=== PATIENT | male | born 1950 | race Caucasian/White ===

== ENCOUNTER 2017-02-13 15:34 | Inpatient (IN) | payer OTHER, MEDICARE ==
[~2017-02-13] VITALS: Ht 175.3 cm; Wt 99.9 kg
[~2017-02-13 15:34] MED LIST: ALBUAER2 INH; ASCA500 PO; ASPI-435; BRVIN; CHOL400C; CYAN50TA2; FERR28TA2; FLUT220A INH; HYDR5SYP11 PO; LISI40TA PO; MONT1TAB3 PO; MULTTAB5 PO; SIMV-151 PO
[2017-02-13] MEDS ORDERED: OPTIRAY 320 IV PRN (17:30)
--- NOTE | 2017-02-13 17:46 | DIAGNOSTIC IMAGING REPORT ---
CT ANGIOGRAPHY OF THE CHEST, PULMONARY EMBOLUS PROTOCOL CLINICAL HISTORY: Shortness of breath. Pleuritic chest pain. Liver lesions. COMPARISON STUDY: No previous studies for comparison. TECHNIQUE: Following IV administration of 119 mL of Optiray-320, helical axial images of the chest were obtained utilizing the pulmonary embolus protocol. Maximal intensity projections and sagittal and coronal reformats were viewed on an independent 3D workstation. IV contrast was administered without complication. A dose lowering technique was utilized adhering to the principles of ALARA. FINDINGS: There are multiple bilateral pulmonary emboli, including a small embolus within the distal left pulmonary artery. Numerous small bilateral segmental pulmonary emboli are noted. There is no saddle embolus. There is no CT evidence of right heart strain. There is no thoracic aortic dissection. A 6.1 cm subpleural left lower lobe opacity suggests an infarct. There is no pneumothorax or pleural effusion. Minimal right chest wall gas is likely related to recent chest tube which has been removed. There is trace gas within the upper mediastinum. There is gas within the right lower chest wall and upper abdominal wall which is likely postprocedural. Innumerable liver lesions are better depicted on the abdominal CT. A conglomerate right hepatic lobe lesion measures 5.6 x 3.5 cm. There is an indeterminate 1.7 cm lucent left sixth rib lesion. IMPRESSION: 1. Numerous small bilateral pulmonary emboli, including a small embolus within the distal left pulmonary artery. 6.1 cm subpleural left lower lobe opacity suggestive of a pulmonary infarct. Findings discussed with Dr. Foley at time of dictation. 2. Innumerable hepatic lesions which are better depicted on the abdominal CT. The findings suggest extensive hepatic metastases. 3. Right chest wall and upper abdominal gas which is likely postprocedural. Trace upper mediastinal gas which may be related to recent chest tube. No pneumothorax. 4. Indeterminate 1.7 cm lucent left sixth rib lesion. Electronically signed by: Geovanny Miranda M.D. 02/13/2017 5:45 PM Dictated Date/Time: 02/13/2017 5:21 PM
--- NOTE | 2017-02-13 17:48 | DIAGNOSTIC IMAGING REPORT ---
CT SCAN OF THE ABDOMEN COMBO LIVER PROTOCOL CLINICAL HISTORY: Upper abdominal pain. Unspecified liver lesion. COMPARISON STUDY: Ultrasound of the abdominal aorta dated 08/18/2014. TECHNIQUE: Before and following the IV administration of 119 cc of Optiray 320, CT scan of the abdomen is performed from the lung bases to the pelvic inlet using the liver protocol. Images are reviewed in the axial, sagittal, and coronal planes. IV contrast was administered without complication. A dose lowering technique was utilized adhering to the principles of ALARA. CT DOSE: 2747.16 mGy.cm FINDINGS: Lung bases: The heart is normal in size and without pericardial effusion. Emphysematous change is suggested. Dependent consolidation is noted at the left lung base. No pleural effusion is identified. Segmental and subsegmental pulmonary emboli are present within the lower lobe pulmonary arteries bilaterally. Liver: The contrast-enhanced liver is enlarged, measuring 22.5 cm in length. There is no intrahepatic biliary ductal dilatation. There are numerous (greater than 30) low-attenuation lesions seen throughout the liver. The largest is in the dome of the right lobe measuring approximately 4 cm. Hepatic and portal vasculature: Hepatic arterial anatomy is conventional. The hepatic veins, portal veins, superior mesenteric vein, and splenic vein are patent. Gallbladder: Unremarkable. Spleen: Normal in size and attenuation. Pancreas: The pancreas is moderately atrophic. The duct is normal in caliber. There is approximately 2.0 cm region of questionable indistinctness within the uncinate process on axial image #187. A small pancreatic lesion would be possible exclude. Adrenal glands: Unremarkable. Kidneys: There is a punctate nonobstructing calculus seen in each kidney on the unenhanced series. The contrast enhanced kidneys demonstrate cortical atrophy and are without hydronephrosis. The kidneys enhance symmetrically. A 2.5 cm cyst is identified in the upper pole the left kidney. Abdominal vasculature: The abdominal aorta is normal in course and caliber noting mild to moderate atherosclerotic calcification. Bowel: Visualized portions of the small bowel and colon are normal in course and caliber. Diverticulosis is noted in the partially imaged colon. Peritoneum: There is no intraperitoneal free air or abdominal ascites. Lymphadenopathy: None. Skeletal structures: No lytic or blastic lesions are clearly seen. Soft tissues: Subcutaneous emphysema is noted along the right abdominal wall. IMPRESSION: 1. The liver is enlarged and infiltrated by numerous low-attenuation lesions. The appearance is consistent with diffuse/multifocal hepatic metastatic disease. 2. Segmental and subsegmental pulmonary emboli are seen in the lower lobes. Subpleural consolidation at the left lung base likely represents a pulmonary infarct. 3. There is questionable indistinctness/low attenuation within the uncinate process of the pancreas. This is of indeterminant significance and although not definitive, a pancreatic mass lesion is not excluded. ERCP would likely be required for further interrogation. 4. There is diverticulosis of the imaged colon without CT evidence of acute diverticulitis. 5. Punctate nonobstructing renal calculi. 6. Additional findings as above. Electronically signed by: Sergey Vieira M.D. 02/13/2017 5:46 PM Dictated Date/Time: 02/13/2017 5:29 PM
[2017-02-13 18:33] VITALS: BP 133/89; PULSE 77; TEMP 36.4
[2017-02-13] MEDS ORDERED: ONDANSETRON INJ 2 MG/ML 2 ML VIAL IV PRN (21:00)
[2017-02-13] MEDS ORDERED: MONTELUKAST SOD 10 MG TAB PO SCH (21:00)
[2017-02-13] MEDS ORDERED: ALBUTEROL HFA 8 GM INHALER INH PRN (21:00)
--- NOTE | 2017-02-13 21:02 | History and Physical ---
History & Physical Date & Time of Service: Feb 13, 2017 at 21:02 Chief Complaint: Multiple Pulmonary Embolism Primary Care Physician: Cheko Wilder M.D. 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 The patient stated that he had noticed worsening shortness of breath that started this summer and also developed right upper quadrant pain. On evaluation he was found to have gallstones and lesions on his liver. He was scheduled for a liver biopsy and during the procedure he had a punctured lung and had to have a chest tube placed. After discharge he was noted to have worsening shortness of breath especially since last week and noted increasing lethargy. Complains of loss of appetite and decreased by mouth intake. He stated that he lost about 30 pounds of weight in the last month. He also complains of chest heaviness intermittently and nausea but denied any fevers or chills. States that he feels more depressed about his new diagnosis. Denies any urinary complaints, vomiting or diarrhea but continues to have right upper quadrant pain, twitching of his legs intermittently and halitosis. Denies long travels, immobilization except during his recent stay in the hospital for about a week when he declined DVT prophylaxis. Smokes intermittently Family History Noncontributory Social History Smoking Status: Current Some Day Smoker Smokeless Tobacco Use: No Alcohol Use: none Drug Use: none Marital Status: Housing status: lives with family Occupational Status: retired Immunizations History of Influenza Vaccine: Unknown History of Tetanus Vaccine?: Unknown History of Pneumococcal: Unknown History of Hepatitis B Vaccine: Unknown Multi-Drug Resistant Organisms History of MDRO: No Allergies Coded Allergies: Ciprofloxacin (Verified Allergy, Unknown, RASH, 02/02/13) PER [facility]OR IN [facility]S OFFICE 02/02/13 Mebendazole (Verified Allergy, Unknown, UNKNOWN, 02/02/13) PER IGOR IN [facility]'S OFFICE 02/02/13 Home Medications Scheduled Arformoterol Tartrate (Brovana 15MCG/2ML Soln), 1 BID Ascorbic Acid (Vitamin C), DAILY Aspirin (Aspirin 81), DAILY Ferrous Sulfate (Iron), 65 MG DAILY Fluticasone Propionate Hfa (Flovent Hfa 220MCG Inhaler), 3 PUFF INH BID Hydrocodone W/ Homatropine (Hycodan 5/1.5MG 5 Ml), 5 ML PO Q4H Lisinopril (Zestril), 40 MG PO DAILY Montelukast Sodium (Singulair), 10 MG PO DAILY Multiple Vitamins W/ Minerals (Centrum), DAILY Simvastatin (Simvastatin), HS Scheduled PRN Albuterol (Ventolin Hfa), 2 PUFFS INH Q4 PRN for Dyspepsia Miscellaneous Medications Cholecalciferol (Vitamin D3 400) Cyanocobalamin (Vitamin B-12) Review of Systems Constitutional: + weight loss (30 lbs in last month), No fever, No chills, No sweats Eyes: No worsening of vision ENT: No hearing loss Respiratory: + shortness of breath, + dyspnea on exertion, No cough, No sputum Cardiovascular: No palpitations Abdomen: + pain (ruq) Genitourinary - Male: No hematuria, No dysuria, No urinary frequency Neurologic: No memory loss, No paralysis Psychiatric: + depression symptoms Endocrine: No fatigue Hematologic / Lymphatic: No abnormal bleeding/bruising Integumentary: No rash Physical Exam Vital Signs Date Time Temp Pulse Resp B/P (MAP) Pulse Ox O2 Delivery O2 Flow Rate FiO2 02/13/17 18:33 36.4 77 20 133/89 General Appearance: WD/WN, no apparent distress Head: normocephalic Eyes: normal inspection ENT: hearing grossly normal Neck: supple Respiratory/Chest: chest non-tender, lungs clear, normal breath sounds, no respiratory distress, no accessory muscle use Cardiovascular: regular rate, rhythm, no edema Abdomen/GI: soft, + tenderness (ruq and mid abdominal tenderness) Extremities/Musculoskelatal: no pedal edema Neurologic/Psych: alert, normal mood/affect, oriented x 3 Skin: normal color Diagnostics Laboratory Results Results Past 24 Hours Test 02/13/17 15:54 02/13/17 20:53 Range/Units D-Dimer 61747 0-500 ug/L FEU Ammonia 20.0 11-32 umol/L Diagnostic Radiology Become colored CT ANGIOGRAPHY OF THE CHEST, PULMONARY EMBOLUS PROTOCOL CLINICAL HISTORY: Shortness of breath. Pleuritic chest pain. Liver lesions. COMPARISON STUDY: No previous studies for comparison. TECHNIQUE: Following IV administration of 119 mL of Optiray-320, helical axial images of the chest were obtained utilizing the pulmonary embolus protocol. Maximal intensity projections and sagittal and coronal reformats were viewed on an independent 3D workstation. IV contrast was administered without complication. A dose lowering technique was utilized adhering to the principles of ALARA. FINDINGS: There are multiple bilateral pulmonary emboli, including a small embolus within the distal left pulmonary artery. Numerous small bilateral segmental pulmonary emboli are noted. There is no saddle embolus. There is no CT evidence of right heart strain. There is no thoracic aortic dissection. A 6.1 cm subpleural left lower lobe opacity suggests an infarct. There is no pneumothorax or pleural effusion. Minimal right chest wall gas is likely related to recent chest tube which has been removed. There is trace gas within the upper mediastinum. There is gas within the right lower chest wall and upper abdominal wall which is likely postprocedural. Innumerable liver lesions are better depicted on the abdominal CT. A conglomerate right hepatic lobe lesion measures 5.6 x 3.5 cm. There is an indeterminate 1.7 cm lucent left sixth rib lesion. IMPRESSION: 1. Numerous small bilateral pulmonary emboli, including a small embolus within the distal left pulmonary artery. 6.1 cm subpleural left lower lobe opacity suggestive of a pulmonary infarct. Findings discussed with Dr. Foley at time of dictation. 2. Innumerable hepatic lesions which are better depicted on the abdominal CT. The findings suggest extensive hepatic metastases. 3. Right chest wall and upper abdominal gas which is likely postprocedural. Trace upper mediastinal gas which may be related to recent chest tube. No pneumothorax. 4. Indeterminate 1.7 cm lucent left sixth rib lesion. Electronically signed by: Geovanny Miranda M.D. 02/13/2017 5:45 PM Dictated Date/Time: 02/13/2017 5:[address] SCAN OF THE ABDOMEN COMBO LIVER PROTOCOL CLINICAL HISTORY: Upper abdominal pain. Unspecified liver lesion. COMPARISON STUDY: Ultrasound of the abdominal aorta dated 08/18/2014. TECHNIQUE: Before and following the IV administration of 119 cc of Optiray 320, CT scan of the abdomen is performed from the lung bases to the pelvic inlet using the liver protocol. Images are reviewed in the axial, sagittal, and coronal planes. IV contrast was administered without complication. A dose lowering technique was utilized adhering to the principles of ALARA. CT DOSE: 2747.16 mGy.cm FINDINGS: Lung bases: The heart is normal in size and without pericardial effusion. Emphysematous change is suggested. Dependent consolidation is noted at the left lung base. No pleural effusion is identified. Segmental and subsegmental pulmonary emboli are present within the lower lobe pulmonary arteries bilaterally. Liver: The contrast-enhanced liver is enlarged, measuring 22.5 cm in length. There is no intrahepatic biliary ductal dilatation. There are numerous (greater than 30) low-attenuation lesions seen throughout the liver. The largest is in the dome of the right lobe measuring approximately 4 cm. Hepatic and portal vasculature: Hepatic arterial anatomy is conventional. The hepatic veins, portal veins, superior mesenteric vein, and splenic vein are patent. Gallbladder: Unremarkable. Spleen: Normal in size and attenuation. Pancreas: The pancreas is moderately atrophic. The duct is normal in caliber. There is approximately 2.0 cm region of questionable indistinctness within the uncinate process on axial image #187. A small pancreatic lesion would be possible exclude. Adrenal glands: Unremarkable. Kidneys: There is a punctate nonobstructing calculus seen in each kidney on the unenhanced series. The contrast enhanced kidneys demonstrate cortical atrophy and are without hydronephrosis. The kidneys enhance symmetrically. A 2.5 cm cyst is identified in the upper pole the left kidney. Abdominal vasculature: The abdominal aorta is normal in course and caliber noting mild to moderate atherosclerotic calcification. Bowel: Visualized portions of the small bowel and colon are normal in course and caliber. Diverticulosis is noted in the partially imaged colon. Peritoneum: There is no intraperitoneal free air or abdominal ascites. Lymphadenopathy: None. Skeletal structures: No lytic or blastic lesions are clearly seen. Soft tissues: Subcutaneous emphysema is noted along the right abdominal wall. IMPRESSION: 1. The liver is enlarged and infiltrated by numerous low-attenuation lesions. The appearance is consistent with diffuse/multifocal hepatic metastatic disease. 2. Segmental and subsegmental pulmonary emboli are seen in the lower lobes. Subpleural consolidation at the left lung base likely represents a pulmonary infarct. 3. There is questionable indistinctness/low attenuation within the uncinate process of the pancreas. This is of indeterminant significance and although not definitive, a pancreatic mass lesion is not excluded. ERCP would likely be required for further interrogation. 4. There is diverticulosis of the imaged colon without CT evidence of acute diverticulitis. 5. Punctate nonobstructing renal calculi. 6. Additional findings as above. Electronically signed by: Sergey Vieira M.D. 02/13/2017 5:46 PM Dictated Date/Time: 02/13/2017 5:29 PM BILATERAL LOWER EXTREMITY VENOUS DOPPLER CLINICAL HISTORY: Pulmonary emboli. COMPARISON STUDY: No previous studies for comparison. TECHNIQUE: Sonography of the deep venous system of the bilateral lower extremities was performed. Compression and augmentation were evaluated. FINDINGS: The bilateral common femoral, superficial femoral and popliteal veins were compressible. Augmentation was normal. Flow was shown within the deep calf vessels. IMPRESSION: No evidence of deep venous thrombus within the bilateral lower extremities. Electronically signed by: Geovanny Miranda M.D. 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 Pulmonary embolism: - Elevated d-dimer - CT chest revealed numerous small bilateral pulmonary emboli, including a small embolus within the distal left pulmonary artery. 6.1 cm subpleural left lower lobe opacity suggestive of a pulmonary infarct. - Started on IV heparin with bolus - Venous Dopplers ordered Hepatic metastases likely from pancreatic mass - CT abdomen and pelvis revealed numerous hepatic lesions concerning for metastases - Also found was a likely pancreatic mass lesion within the uncinate process of the pancreas - Indeterminate 1.7 cm lucent left sixth rib lesion ?likely representing rib metastases - Hematology/oncology consult - Gastroenterology consult for ERCP for further evaluation of the pancreatic mass Transaminitis: -Likely secondary to hepatic lesions COPD: - Continue Brovana, Proventil Hypertension: - Continue losartan and amlodipine GERD: - Continue famotidine DVT prophylaxis: IV heparin Full code Disposition: Admitted to [facility] Attending Addendum: I have physically seen and examined this patient, have directed the resident's medical activities, and agree with the H&P as noted above with the following exceptions as noted. The patient is awake, alert and oriented 3, well-developed and well-nourished , normocephalic and atraumatic, lying in bed and in no acute distress. HEENT--PERRL, EOMI, mucous membranes and oropharynx dry. Neck--supple, no JVD or bruits, thyroid normal, trachea midline, no adenopathy. Heart--normal S1 and S2, no extra beats, no murmurs, rubs or gallops. Lungs--decreased breath sounds at bases bilaterally, no respiratory distress, no accessory muscle use. Abdomen--normal bowel sounds and soft, mild tenderness in the epigastric and right upper quadrant areas, Duonebs every 4 hours while awake and every 2 hours when necessary.nondistended, no hernias or masses, no organomegaly. Extremities--no cyanosis, clubbing or edema. There are good distal pulses b/l. Dermatologic--normal skin turgor, normal color, warm and dry, no abnormal lymph nodes, no rash. Neurologic--cranial nerves II through XII grossly intact, Rheumatologic--normal range of motion, nontender, muscles and joints. Psychiatric--normal affect. Assessment and Plan: Bilateral pulmonary emboli/left lower lobe pulmonary infarct-- Heparin IV standard dose per weight-based protocol with bolus. Bilateral venous Dopplers of lower extremities to assess for DVT. Continue Brovana and Proventil. Pancreatic mass/hepatic metastases/abnormal LFTs/complication from previous ultrasound guided liver biopsy attempt by radiology elsewhere-- Nothing by mouth except medications for possible procedure IV fluids. Continue famotidine. Consult gastroenterology for possible ERCP. Patient is very concerned about a direct liver biopsy due to the previous complication at another facility. Hypertension-- Continue losartan and amlodipine with hold parameters. Level of Care Med/Surg Advanced Directives Existing Advance Directive: No Existing Living Will: No Existing Power of Wireless Sales Manager: No Resuscitation Status FULL RESUSCITATION VTE Prophylaxis VTE Risk Assessment Done? Y/N: Yes Risk Level: Moderate Given or contraindicated: Other Anticoagulation (IV heparin) Social Service Consult None Apply Resident Tracking Resident Involvement: Resident Care Provided Care Provided: Adult Hospital Medicine
[2017-02-13] MEDS ORDERED: HYDROCODONE/HOMATROPINE SYRUP 5MG/1.5MG 5ML UDP PO PRN (21:15)
[2017-02-13] MEDS ORDERED: POLYETHYLENE (MIRALAX) 17 GM PACK PO PRN (21:15)
[2017-02-13 21:17] VITALS: BMI 32.9
[2017-02-13 21:32] LABS: HEMATOCRIT 33.1 % (42-52); MEAN CELL VOLUME 95.7 fL (80-100); MEAN CORPUSCULAR HEMOGLOBIN 31.2 pg (25-34); MEAN CORPUSCULAR HGB CONC 32.6 g/dl (32-36); MEAN PLATELET VOLUME 8.9 fL (7.4-10.4); PLATELET COUNT 280 K/uL (130-400); RED BLOOD COUNT 3.46 M/uL (4.7-6.1); WHITE BLOOD COUNT 12.59 K/uL (4.8-10.8)
[2017-02-13 21:45] LABS: PROTHROMBIN TIME (PATIENT) 11.2 SECONDS (9.0-12.0)
[2017-02-13] MEDS ORDERED: HEPARIN IV BOLUS 7,000 UNIT in SYRINGE 0 ML IV STA (21:49)
[2017-02-13 21:50] LABS: BUN/CREATININE RATIO 15.8 (10-20); CALCIUM 8.8 mg/dl (8.5-10.1); CREATININE 1.1 mg/dl (0.60-1.40); POTASSIUM 4.3 mmol/L (3.5-5.1)
[2017-02-13 21:53] LABS: ALB/GLOB RATIO 0.8 (0.9-2)
[2017-02-13] MEDS: HEPARIN 25,000 UNIT/500ML D5W 500 ML IV PRN (22:36)
--- NOTE | 2017-02-13 22:39 | DIAGNOSTIC IMAGING REPORT ---
BILATERAL LOWER EXTREMITY VENOUS DOPPLER CLINICAL HISTORY: Pulmonary emboli. COMPARISON STUDY: No previous studies for comparison. TECHNIQUE: Sonography of the deep venous system of the bilateral lower extremities was performed. Compression and augmentation were evaluated. FINDINGS: The bilateral common femoral, superficial femoral and popliteal veins were compressible. Augmentation was normal. Flow was shown within the deep calf vessels. IMPRESSION: No evidence of deep venous thrombus within the bilateral lower extremities. Electronically signed by: Geovanny Miranda M.D. 02/13/2017 10:38 PM Dictated Date/Time: 02/13/2017 10:38 PM
[2017-02-13] MEDS: ACETAMINOPHEN 325 MG TAB PO PRN (22:55)
[2017-02-13 23:03] VITALS: BP 126/78; PULSE 80; TEMP 36.9; O2SAT 98
[2017-02-13] MEDS ORDERED: NURSING VERBAL MED ORDER ONE (23:15)
[2017-02-13] MEDS ORDERED: LORAZEPAM 2 MG/ML 1 ML VIAL IV PRN (23:30)
[2017-02-13 23:35] VITALS: PULSE 78
[2017-02-14] VITALS (9 sets, daily range): BP systolic 116–150; BP diastolic 72–86; PULSE 55–76; TEMP 36.6–37.6; O2SAT 96–98; BMI 32.8
[2017-02-14] MEDS: NSS + 20MEQ KCL 1000ML 1,000 ML IV SCH ×3 (00:10→18:09)
[2017-02-14] MEDS: FAMOTIDINE IV INJ 20 MG in DEXTROSE 5% 100ML 100 ML IV SCH ×2 (00:10→12:08)
[2017-02-14] MEDS: LORAZEPAM INJ 0.5 MG in SYRINGE 0.75 ML IV PRN (00:10)
[2017-02-14 05:01] LABS: HEMATOCRIT 32.1 % (42-52); MEAN CELL VOLUME 96.1 fL (80-100); MEAN CORPUSCULAR HEMOGLOBIN 30.8 pg (25-34); MEAN CORPUSCULAR HGB CONC 32.1 g/dl (32-36); MEAN PLATELET VOLUME 8.9 fL (7.4-10.4); PLATELET COUNT 266 K/uL (130-400); RED BLOOD COUNT 3.34 M/uL (4.7-6.1); WHITE BLOOD COUNT 10.98 K/uL (4.8-10.8)
[2017-02-14 05:17] LABS: PARTIAL THROMBOPLASTIN RATIO 2.5
[2017-02-14 05:27] LABS: BUN/CREATININE RATIO 15.2 (10-20); CALCIUM 8.3 mg/dl (8.5-10.1); CREATININE 1.1 mg/dl (0.60-1.40); POTASSIUM 4.2 mmol/L (3.5-5.1)
[2017-02-14 05:30] LABS: ALB/GLOB RATIO 0.7 (0.9-2)
[2017-02-14] MEDS: BUDESONIDE 0.5 MG/2 ML VIAL (PULMICORT) INH SCH ×2 (07:15→19:32)
[2017-02-14] MEDS: ARFORMOTEROL TART 15MCG/2ML VIAL INH SCH ×2 (07:15→19:32)
[2017-02-14] MEDS ORDERED: ARFORMOTEROL TART 15MCG/2ML VIAL INH SCH (08:00)
[2017-02-14] MEDS ORDERED: FLUTICASONE HFA 220 MCG INHALER INH SCH (08:00)
--- NOTE | 2017-02-14 08:42 | Clinical Documentation Query ---
LEIDY Arzola : CLINICAL DOCUMENTATION QUERY Patient is a 66 year old male admitted for evaluation and treatment of bilateral pulmonary emboli. Documentation includes: "Hepatic metastases likely from pancreatic mass - CT abdomen and pelvis revealed numerous hepatic lesions concerning for metastases - Also found was a likely pancreatic mass lesion within the uncinate process of the pancreas - Indeterminate 1.7 cm lucent left sixth rib lesion ?likely representing rib metastases". This implies, but nowhere states that the patient has cancer/malignant neoplasm. 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 Please clarify as clinically appropriate. Thank you. In your clinical opinion is this patient being managed for: ( ) Malignant neoplasm of pancreas with likely hepatic metastases and possible left 6th rib bony metastasis. (x ) Not Agree - see notes, not clear if pancreatic, colon, or other primary. w/u underway ( ) Other explanation of clinical findings (Please Explain) ( ) Unable to determine (Please Define) ( ) Need to Discuss The medical record reflects the following clinical findings, treatment, and risk factors. Clinical Indicators: As above Treatment: Radiology, - Hematology/oncology consult, Gastroenterology consult for ERCP for further evaluation of the pancreatic mass Risk Factors: Age Please clarify and document your clinical opinion in the progress notes and discharge summary. Terms such as "probable", "suspected", "likely", "questionable", "possible", or "still to be ruled out" are acceptable. IF IN AGREEMENT, YOU MUST DOCUMENT ABOVE DIAGNOSTIC STATEMENT IN DAILY PROGRESS NOTES AND DISCHARGE SUMMARY. This document is not part of the patient's record. Thank You, Hank Lawrence RN [phone]
[2017-02-14] MEDS: LISINOPRIL 40 MG TAB PO SCH (08:50)
[2017-02-14] MEDS: CEROVITE ADV FORMULA TAB PO SCH (12:09)
[2017-02-14] MEDS: MONTELUKAST SOD 10 MG TAB PO SCH (12:09)
[2017-02-14] MEDS: ASPIRIN 81 MG ECTAB PO SCH (12:10)
[2017-02-14] MEDS: ASCORBIC ACID 500 MG TAB PO SCH (12:10)
--- NOTE | 2017-02-14 13:03 | Family Medicine Progress Note ---
Progress Note Date of Service Feb 14, 2017. Subjective Pt evaluation today including: conversation w/ patient, physical exam, chart review, lab review Pain: RUQ abdominal pain PO Intake: npo this AM Voiding: no voiding problems This AM Mr. Ponce reported RUQ abdominal pain but denied having any sob unless he exerts himself by moving around such as going to the bathroom. He also denied having anycp, n/v, d/c. He reported feeling very down and depressed given everything he is going through and his new cancer diagnoses and has lost a lot of weight recently. Constitutional: No fever Respiratory: No shortness of breath Cardiovascular: No chest pain Abdomen: + pain, No nausea, No vomiting, No diarrhea, No constipation Male : No dysuria Neurologic: No problem reported Medications Current Inpatient Medications Medications (Trade) Dose Ordered Sig/Pedro Pablo Route Start Time Stop Time Status Last Admin Dose Admin Ioversol (Optiray 320) 119 ml UD PRN IV 02/13/17 17:30 02/17/17 17:29 Acetaminophen (Tylenol Tab) 650 mg Q4H PRN PO 02/13/17 21:00 03/15/17 20:59 Future hold 02/13/17 22:55 650 MG Polyethylene (Miralax Powder Packet) 17 gm DAILY PRN PO 02/13/17 21:15 03/15/17 21:14 Future hold Ondansetron HCl (Zofran Inj) 4 mg Q6H PRN IV 02/13/17 21:00 03/15/17 20:59 Albuterol (Ventolin Hfa Inhaler) 2 puffs Q4 PRN INH 02/13/17 21:00 03/15/17 20:59 Aspirin (Ecotrin Tab) 81 mg DAILY PO 02/14/17 08:00 03/16/17 07:59 02/14/17 12:10 81 MG Lisinopril (Zestril Tab) 40 mg DAILY PO 02/14/17 08:00 03/16/17 07:59 02/14/17 08:50 40 MG Ascorbic Acid (Vitamin C Tab) 500 mg DAILY PO 02/14/17 08:00 03/16/17 07:59 02/14/17 12:10 500 MG Hydrocodone Bit/ Homatropine Methylb (Hycodan Syrup) 5 ml Q4H PRN PO 02/13/17 21:15 02/27/17 21:14 Future hold Multivitamins/ Minerals (Multivitamin W/ Minerals Tab) 1 tab DAILY PO 02/14/17 08:00 03/16/17 07:59 02/14/17 12:09 1 TAB Simvastatin (Zocor Tab) 20 mg HS PO 02/14/17 21:00 03/16/17 20:59 Heparin Sodium/ Dextrose 500 ml @ 30 mls/hr [id number] PRN IV 02/13/17 22:00 03/15/17 21:59 02/13/17 22:36 30 MLS/HR Montelukast Sodium (Singulair Tab) 10 mg DAILY PO 02/14/17 08:00 03/15/17 20:59 02/14/17 12:09 10 MG Potassium Chloride/Sodium Chloride 1,000 ml @ 100 mls/hr Q10H IV 02/13/17 23:30 03/15/17 23:29 02/14/17 08:50 100 MLS/HR Lorazepam 0.5 mg/ Syringe 1 ml @ 1 mls/min Q4H PRN IV 02/13/17 23:30 03/15/17 23:29 02/14/17 00:10 1 MLS/MIN Lorazepam (Ativan Inj) 0.5 mg Q4H PRN IV 02/13/17 23:30 03/15/17 23:29 Famotidine 20 mg/ Dextrose 102 ml @ 204 mls/hr Q12@00,12 IV 02/14/17 00:00 03/16/17 00:00 02/14/17 12:08 204 MLS/HR Budesonide (Pulmicort Respules 0.5MG/ 2ML Neb Soln) 0.5 mg BIDR INH 02/14/17 08:00 03/16/17 07:59 02/14/17 07:15 0.5 MG Arformoterol Tartrate (Brovana 15MCG/ 2ML Neb Soln) 15 mcg BIDR INH 02/14/17 08:00 03/16/17 07:59 02/14/17 07:15 15 MCG Objective Vital Signs Date Time Temp Pulse Resp B/P (MAP) Pulse Ox O2 Delivery O2 Flow Rate FiO2 02/14/17 08:00 97 Room Air 02/14/17 07:15 71 16 97 Room Air 02/14/17 07:15 36.9 70 18 135/85 (102) 96 Room Air 02/14/17 04:28 36.8 72 20 116/73 (87) 97 CPAP 02/14/17 00:00 Room Air 02/13/17 23:35 78 02/13/17 23:03 36.9 80 20 126/78 (94) 98 Room Air 02/13/17 21:17 Room Air 02/13/17 18:33 36.4 77 20 133/89 Physical Exam General Appearance: no apparent distress Eyes: normal inspection, sclerae normal Respiratory/Chest: chest non-tender, lungs clear, + decreased breath sounds ( bilateral lung bases) Cardiovascular: regular rate, rhythm, no edema Abdomen: normal bowel sounds, soft, + tenderness (extreme TTP RUQ; mild epigastric TTP) Extremities: non-tender, no pedal edema Neurologic/Psychiatric: alert, oriented x 3, + depressed affect Skin: warm/dry Laboratory Results 02/14/17 04:43 02/14/17 04:43 Test 02/13/17 15:54 02/13/17 21:18 02/14/17 04:43 D-Dimer 05097 ug/L FEU (0-500) Ammonia 20.0 umol/L (11-32) Prothrombin Time 11.2 SECONDS (9.0-12.0) Prothromb Time International Ratio 1.0 (0.9-1.1) Red Blood Count 3.34 M/uL (4.7-6.1) Mean Corpuscular Volume 96.1 fL (80-100) Mean Corpuscular Hemoglobin 30.8 pg (25-34) Mean Corpuscular Hemoglobin Concent 32.1 g/dl (32-36) RDW Standard Deviation 52.1 fL (36.4-46.3) RDW Coefficient of Variation 14.9 % (11.5-14.5) Mean Platelet Volume 8.9 fL (7.4-10.4) Activated Partial Thromboplast Time 64.8 SECONDS (21.0-31.0) Partial Thromboplastin Ratio 2.5 Anion Gap 6.0 mmol/L (3-11) Est Creatinine Clear Calc Drug Dose 75.4 ml/min Estimated GFR () 79.5 Estimated GFR (Non- 68.6 BUN/Creatinine Ratio 15.2 (10-20) Calcium Level 8.3 mg/dl (8.5-10.1) Total Bilirubin 1.5 mg/dl (0.2-1) Aspartate Amino Transf (AST/SGOT) 139 U/L (15-37) Alanine Aminotransferase (ALT/SGPT) 169 U/L (12-78) Alkaline Phosphatase 626 U/L (45-117) Total Protein 6.7 gm/dl (6.4-8.2) Albumin 2.8 gm/dl (3.4-5.0) Globulin 3.9 gm/dl (2.5-4.0) Albumin/Globulin Ratio 0.7 (0.9-2) Assessment and Plan 66-year-old male with a past medical history of hypertension, COPD, GERD 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 Pulmonary embolism: Risk factors: malignancy and recent hospitalization. Currently stable satting well on RA - Elevated d-dimer - CT chest revealed numerous small bilateral pulmonary emboli, including a small embolus within the distal left pulmonary artery. 6.1 cm subpleural left lower lobe opacity suggestive of a pulmonary infarct. - Venous Dopplers - no DVT - Started on IV heparin with bolus - will transition to Lovenox once ready for discharge Hepatic metastases likely from pancreatic mass - CT abdomen and pelvis revealed numerous hepatic lesions concerning for metastases - Likely from pancreatic mass lesion within the uncinate process of the pancreas vs. Colon cancer (Colonoscopy 2012 - removed at least 1 polyp) - Indeterminate 1.7 cm lucent left sixth rib lesion likely rib metastases - General surgery consulted for surgical liver biopsy tomorrow Am per pt preference given adverse event with previous needle guided biopsy - Hematology/oncology consult - Gastroenterology consult for ERCP for further evaluation of the pancreatic mass - Working on getting records for colonoscopy, and recent care at [facility] Transaminitis: -Likely secondary to hepatic lesions COPD: - Continue Brovana, Proventil Hypertension: - Continue losartan and amlodipine GERD: - Continue famotidine DVT prophylaxis: IV heparin Full code Disposition: Admitted to [facility] Resident Physician Supervision Note: I interviewed and examined the patient. Discussed with Dr. Morrison and agree with findings and plan as documented in the note. Any exceptions or clarifications are listed here: None Documented By: Charles Estrada worried about dx. wants to get an answer, understandably reticent about any repeat radiology guided bx. discussed options at length. ~30-45mins face to face discussions vitals noted nad breathing unlabored no pallor or icterus a/p PEs - clinically stable, anticoagulate w heparin pending ?procedures, anticipate transition to lovenox, hypercoag state due to metastatic malignancy metastatic malignancy - main two possible primaries appear either pancreatic or colon. others possible but those would be most likely (pancreatic because of questionable mass on CT, colon simply by epidemiologic frequency, despite his having had a colo just ~4yrs ago) ---discussed dx options at length (IR for bx, consult for consideration for surgical bx, GI for eval of pancreas mass and/or colon to indirectly dx liver by searching for primary) --> for now he would like to discuss surgical bx - will consult surgery for eval otherwise as above stable Resident Involvement: Resident Care Provided Care Provided: Adult Hospital Medicine
--- NOTE | 2017-02-14 15:39 | Surgery Consultation ---
Consultation Date of Consultation: Feb 14, 2017. Attending Physician: Charles Estrada D.O. Reason for Consultation: Evaluation for possible liver biopsy History of Present Illness 66-year-old male with past medical history significant for COPD was directly admitted from [employer], Dr. Foley for SOB and possible pulmonary embolism. Patient is approximately 3 weeks s/p attempted liver biopsy at [facility]. During liver biopsy patient's lung was punctured, resulting in chest tube placement and a 3 day ICU stay. Currently, patient reports that shortness of breath is improved. He does have complaints of right upper quadrant pain. He states that he will frequently have right upper quadrant pain after eating. He reports that he is very careful with what he eats at home- he avoids spicy, fatty, fried foods. Patient has had recent unintentional 30lb weight loss. Social History Smoking Status: Never Smoker Marital Status: Allergies Coded Allergies: Ciprofloxacin (Verified Allergy, Unknown, RASH, 02/02/13) PER IGOR IN [facility]A'S OFFICE 02/02/13 Mebendazole (Verified Allergy, Unknown, UNKNOWN, 02/02/13) PER IGOR IN [facility]A'S OFFICE 02/02/13 Home Medications Scheduled Arformoterol Tartrate (Brovana 15MCG/2ML Soln), 1 BID Ascorbic Acid (Vitamin C), DAILY Aspirin (Aspirin 81), DAILY Ferrous Sulfate (Iron), 65 MG DAILY Fluticasone Propionate Hfa (Flovent Hfa 220MCG Inhaler), 3 PUFF INH BID Hydrocodone W/ Homatropine (Hycodan 5/1.5MG 5 Ml), 5 ML PO Q4H Lisinopril (Zestril), 40 MG PO DAILY Montelukast Sodium (Singulair), 10 MG PO DAILY Multiple Vitamins W/ Minerals (Centrum), DAILY Simvastatin (Simvastatin), HS Scheduled PRN Albuterol (Ventolin Hfa), 2 PUFFS INH Q4 PRN for Dyspepsia Miscellaneous Medications Cholecalciferol (Vitamin D3 400) Cyanocobalamin (Vitamin B-12) Current Inpatient Medications Current Inpatient Medications Medications (Trade) Dose Ordered Sig/Pedro Pablo Route Start Time Stop Time Status Last Admin Dose Admin Ioversol (Optiray 320) 119 ml UD PRN IV 02/13/17 17:30 02/17/17 17:29 Acetaminophen (Tylenol Tab) 650 mg Q4H PRN PO 02/13/17 21:00 03/15/17 20:59 Future hold 02/13/17 22:55 650 MG Polyethylene (Miralax Powder Packet) 17 gm DAILY PRN PO 02/13/17 21:15 03/15/17 21:14 Future hold Ondansetron HCl (Zofran Inj) 4 mg Q6H PRN IV 02/13/17 21:00 03/15/17 20:59 Albuterol (Ventolin Hfa Inhaler) 2 puffs Q4 PRN INH 02/13/17 21:00 03/15/17 20:59 Aspirin (Ecotrin Tab) 81 mg DAILY PO 02/14/17 08:00 03/16/17 07:59 02/14/17 12:10 81 MG Lisinopril (Zestril Tab) 40 mg DAILY PO 02/14/17 08:00 03/16/17 07:59 02/14/17 08:50 40 MG Ascorbic Acid (Vitamin C Tab) 500 mg DAILY PO 02/14/17 08:00 03/16/17 07:59 02/14/17 12:10 500 MG Hydrocodone Bit/ Homatropine Methylb (Hycodan Syrup) 5 ml Q4H PRN PO 02/13/17 21:15 02/27/17 21:14 Future hold Multivitamins/ Minerals (Multivitamin W/ Minerals Tab) 1 tab DAILY PO 02/14/17 08:00 03/16/17 07:59 02/14/17 12:09 1 TAB Simvastatin (Zocor Tab) 20 mg HS PO 02/14/17 21:00 03/16/17 20:59 Heparin Sodium/ Dextrose 500 ml @ 30 mls/hr [id number] PRN IV 02/13/17 22:00 03/15/17 21:59 02/13/17 22:36 30 MLS/HR Montelukast Sodium (Singulair Tab) 10 mg DAILY PO 02/14/17 08:00 03/15/17 20:59 02/14/17 12:09 10 MG Potassium Chloride/Sodium Chloride 1,000 ml @ 100 mls/hr Q10H IV 02/13/17 23:30 03/15/17 23:29 02/14/17 08:50 100 MLS/HR Lorazepam 0.5 mg/ Syringe 1 ml @ 1 mls/min Q4H PRN IV 02/13/17 23:30 03/15/17 23:29 02/14/17 00:10 1 MLS/MIN Lorazepam (Ativan Inj) 0.5 mg Q4H PRN IV 02/13/17 23:30 03/15/17 23:29 Famotidine 20 mg/ Dextrose 102 ml @ 204 mls/hr Q12@00,12 IV 02/14/17 00:00 03/16/17 00:00 02/14/17 12:08 204 MLS/HR Budesonide (Pulmicort Respules 0.5MG/ 2ML Neb Soln) 0.5 mg BIDR INH 02/14/17 08:00 03/16/17 07:59 02/14/17 07:15 0.5 MG Arformoterol Tartrate (Brovana 15MCG/ 2ML Neb Soln) 15 mcg BIDR INH 02/14/17 08:00 03/16/17 07:59 02/14/17 07:15 15 MCG Review of Systems Constitutional: No fever, No chills, No sweats Cardiovascular: No chest pain Physical Exam Date Time Temp Pulse Resp B/P (MAP) Pulse Ox O2 Delivery O2 Flow Rate FiO2 02/14/17 08:00 97 Room Air 02/14/17 07:15 71 16 97 Room Air 02/14/17 07:15 36.9 70 18 135/85 (102) 96 Room Air 02/14/17 04:28 36.8 72 20 116/73 (87) 97 CPAP 02/14/17 00:00 Room Air 02/13/17 23:35 78 02/13/17 23:03 36.9 80 20 126/78 (94) 98 Room Air 02/13/17 21:17 Room Air 02/13/17 18:33 36.4 77 20 133/89 General Appearance: WD/WN, no apparent distress Respiratory/Chest: no respiratory distress Abdomen/GI: soft, + pertinent finding (mild tenderness in right upper quadrant) Laboratory Results Last 24 Hours Test 02/13/17 15:54 02/13/17 21:18 9/7/17 04:43 D-Dimer 84827 ug/L FEU Ammonia 20.0 umol/L White Blood Count 12.59 K/uL 10.98 K/uL Red Blood Count 3.46 M/uL 3.34 M/uL Hemoglobin 10.8 g/dL 10.3 g/dL Hematocrit 33.1 % 32.1 % Mean Corpuscular Volume 95.7 fL 96.1 fL Mean Corpuscular Hemoglobin 31.2 pg 30.8 pg Mean Corpuscular Hemoglobin Concent 32.6 g/dl 32.1 g/dl RDW Standard Deviation 51.5 fL 52.1 fL RDW Coefficient of Variation 15.0 % 14.9 % Platelet Count 280 K/uL 266 K/uL Mean Platelet Volume 8.9 fL 8.9 fL Prothrombin Time 11.2 SECONDS Prothromb Time International Ratio 1.0 Activated Partial Thromboplast Time 25.7 SECONDS 64.8 SECONDS Partial Thromboplastin Ratio 1.0 2.5 Sodium Level 137 mmol/L 138 mmol/L Potassium Level 4.3 mmol/L 4.2 mmol/L Chloride Level 104 mmol/L 105 mmol/L Carbon Dioxide Level 26 mmol/L 27 mmol/L Anion Gap 7.0 mmol/L 6.0 mmol/L Blood Urea Nitrogen 17 mg/dl 17 mg/dl Creatinine 1.10 mg/dl 1.10 mg/dl Est Creatinine Clear Calc Drug Dose 75.4 ml/min 75.4 ml/min Estimated GFR () 79.5 79.5 Estimated GFR (Non- 68.6 68.6 BUN/Creatinine Ratio 15.8 15.2 Random Glucose 101 mg/dl 105 mg/dl Calcium Level 8.8 mg/dl 8.3 mg/dl Total Bilirubin 1.7 mg/dl 1.5 mg/dl Aspartate Amino Transf (AST/SGOT) 159 U/L 139 U/L Alanine Aminotransferase (ALT/SGPT) 189 U/L 169 U/L Alkaline Phosphatase 701 U/L 626 U/L Total Protein 7.4 gm/dl 6.7 gm/dl Albumin 3.2 gm/dl 2.8 gm/dl Globulin 4.2 gm/dl 3.9 gm/dl Albumin/Globulin Ratio 0.[address] Abdomen IMPRESSION: 1. The liver is enlarged and infiltrated by numerous low-attenuation lesions. The appearance is consistent with diffuse/multifocal hepatic metastatic disease. 2. Segmental and subsegmental pulmonary emboli are seen in the lower lobes. Subpleural consolidation at the left lung base likely represents a pulmonary infarct. 3. There is questionable indistinctness/low attenuation within the uncinate process of the pancreas. This is of indeterminant significance and although not definitive, a pancreatic mass lesion is not excluded. ERCP would likely be required for further interrogation. 4. There is diverticulosis of the imaged colon without CT evidence of acute diverticulitis. 5. Punctate nonobstructing renal calculi. 6. Additional findings as above. CT ANGIOGRAPHY OF THE CHEST, PULMONARY EMBOLUS PROTOCOL CLINICAL HISTORY: Shortness of breath. Pleuritic chest pain. Liver lesions. COMPARISON STUDY: No previous studies for comparison. TECHNIQUE: Following IV administration of 119 mL of Optiray-320, helical axial images of the chest were obtained utilizing the pulmonary embolus protocol. Maximal intensity projections and sagittal and coronal reformats were viewed on an independent 3D workstation. IV contrast was administered without complication. A dose lowering technique was utilized adhering to the principles of ALARA. FINDINGS: There are multiple bilateral pulmonary emboli, including a small embolus within the distal left pulmonary artery. Numerous small bilateral segmental pulmonary emboli are noted. There is no saddle embolus. There is no CT evidence of right heart strain. There is no thoracic aortic dissection. A 6.1 cm subpleural left lower lobe opacity suggests an infarct. There is no pneumothorax or pleural effusion. Minimal right chest wall gas is likely related to recent chest tube which has been removed. There is trace gas within the upper mediastinum. There is gas within the right lower chest wall and upper abdominal wall which is likely postprocedural. Innumerable liver lesions are better depicted on the abdominal CT. A conglomerate right hepatic lobe lesion measures 5.6 x 3.5 cm. There is an indeterminate 1.7 cm lucent left sixth rib lesion. IMPRESSION: 1. Numerous small bilateral pulmonary emboli, including a small embolus within the distal left pulmonary artery. 6.1 cm subpleural left lower lobe opacity suggestive of a pulmonary infarct. Findings discussed with Dr. Foley at time of dictation. 2. Innumerable hepatic lesions which are better depicted on the abdominal CT. The findings suggest extensive hepatic metastases. 3. Right chest wall and upper abdominal gas which is likely postprocedural. Trace upper mediastinal gas which may be related to recent chest tube. No pneumothorax. 4. Indeterminate 1.7 cm lucent left sixth rib lesion. Assessment & Plan Reviewed recent imaging. Discussed case with Dr. Guillermo. At this time, the risks of completing liver biopsy outweigh the benefits due to numerous small bilateral pulmonary emboli, including a small embolus within the distal left pulmonary artery. Awaiting GI consult for input on possible ERCP.
[2017-02-14] MEDS: SIMVASTATIN 20 MG TAB PO SCH (20:59)
[2017-02-15] VITALS (7 sets, daily range): BP systolic 118–139; BP diastolic 66–89; PULSE 65–83; TEMP 36.4–37.1; O2SAT 95–99; BMI 32.7
[2017-02-15] MEDS: FAMOTIDINE IV INJ 20 MG in DEXTROSE 5% 100ML 100 ML IV SCH ×3 (00:41→23:39)
[2017-02-15] MEDS: NSS + 20MEQ KCL 1000ML 1,000 ML IV SCH ×2 (04:49→14:58)
--- NOTE | 2017-02-15 06:06 | GASTROINTESTINAL CONSULTATION ---
DATE OF CONSULTATION: 02/14/2017 REASON FOR CONSULT: Hepatic masses, possible pancreatic mass, elevated liver functions, weight loss. HISTORY OF PRESENT ILLNESS: Mr. Ponce is a 66-year-old white male who had been experiencing an approximate 30-pound weight loss over the past several weeks as well as development of right upper quadrant pain. The patient has a chronic history of COPD and hypertension. During initial workup, ultrasound was performed which did not find abnormalities in the gallbladder. Subsequent workup ultimately found on CT scan a liver with multiple lesions throughout the parenchyma and possible pancreatic mass. The patient underwent an attempt at CT-guided biopsy for histology at [facility], however, inadvertently developed a pneumothorax. No tissue was obtained for analysis. The patient required chest tube placement and gastric decompression and eventually was discharged from the hospital. The patient subsequently developed shortness of breath that was increasing in nature that prompted admission on 02/13/2017 to [facility], at which point multiple pulmonary emboli were noted on CT chest imaging. Venous Dopplers did not reveal lower extremity sources for these clots. PAST MEDICAL HISTORY: Includes COPD, GERD, hypertension. For COPD, he is followed by Dr. Foley's office. ALLERGIES: HE HAS ALLERGIES TO CIPROFLOXACIN AND MEBENDAZOLE. HOME MEDICATIONS: Include Brovana, ascorbic acid, aspirin, iron sulfate, fluticasone, Hycodan, lisinopril, Singulair, multivitamins and simvastatin. FAMILY HISTORY: Noncontributory. SOCIAL HISTORY: The patient smokes cigars over the years but quit a few years ago completely. He rarely, if ever, drinks alcoholic beverages, perhaps 1 beverage monthly. 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 REVIEW OF SYSTEMS: Otherwise noncontributory based on 13-point exam. The patient denies odynophagia, dysphagia, although has noted a diminished appetite and perhaps an early satiety. There are, however, no obstructive symptoms described by the patient. This accompanied the 30-pound weight loss that he described. He denies dysuria or hematuria. He has no rashes or changes in hair. There are no neurologic symptoms. He denies any pruritus. PHYSICAL EXAMINATION: VITAL SIGNS: On admission, the patient was afebrile, blood pressure 133/89, heart rate 77 and respirations 20. Currently, he is afebrile at 36.6, blood pressure 130/79, pulse ox 96 on room air and respirations 17. GENERAL: The patient is awake, alert and oriented and is resting comfortably in bed without dyspnea. He is accompanied by his and a close work associate, the patient approved conversation and examination in this person's presence. HEENT: Sclerae anicteric, conjunctivae moist. Oral mucosa moist. NEUROLOGIC: Nonfocal. NECK: There is no cervical or supraclavicular adenopathy. I do not appreciate thyromegaly. HEART: Normal S1, S2. LUNGS: Clear to auscultation without rales, rhonchi or wheezes. ABDOMEN: The patient is tender in the right upper quadrant area. There is no rebound or guarding. I do not appreciate ascites or shifting dullness. There are no abdominal bruits. EXTREMITIES: Show normal range of motion. Without clubbing, cyanosis or edema. RECTAL: Deferred at this time. The patient did report having had 2 colonoscopies in the past in the [place] area with Dr. Roche 5 years apart with no reported findings. LABORATORY STUDIES: During this admission show a white count of 12.5 and repeat of 10.9, hemoglobin is 10.8 with an MCV of 95.7. The RDW is slightly elevated. Platelets are 280,000. INR on 02/13/2017 was 1.0. There was a markedly elevated D-dimer consistent with the patient's history of pulmonary emboli, and subsequently earlier this morning upon starting heparin, PTT was 64.8, in a therapeutic range. Serum chemistries, the patient has an ammonia level of 20, BUN and creatinine of 17 and 1.1, normal potassium of 4.3. Liver tests are elevated with a total bilirubin of 1.7, AST 159, ALT 189, alk phos 701. On repeat today, bilirubin is 1.5, AST 139, ALT 169 and alk phos 626. Albumin is diminished at 3.2 with a normal total protein of 7.4. IMAGING STUDIES: Those during this admission are During this hospitalization were described above. Specifically, for the liver and biliary system, there is no reported lymphadenopathy. The liver is enlarged and has multiple low-attenuation lesions consistent with diffuse multiple hepatic metastases. There are also segmental and subsegmental pulmonary emboli bilaterally. There is also a suspected lesion in the uncinate process of the pancreas. HOSPITAL MEDICATIONS: Include simvastatin, aspirin, lisinopril, ascorbic acid, Multi-Dylan, budesonide, Brovana, famotidine, lorazepam, heparin drip, Zofran p.r.n. IMPRESSION AND PLAN: Mr. Ponce is a 66-year-old white male with a 30-pound weight loss and findings of multiple hepatic lesions and possible pancreatic mass on CT scan. The patient's workup at an outside hospital was complicated by a pneumothorax during a CT-guided biopsy attempt of this liver lesion. I spoke with the patient, his and his close associate at length this evening regarding possible sources of these liver lesions that include a pancreatic and possibly colonic sources. There is also a suggestion on the CT scan of a possible rib lesion. The 3 options to acquire tissue for histology would include reattempt at CT- guided biopsy, endoscopic ultrasound and surgical laparoscopic approaches. The patient had been seen earlier in the day by surgery who felt that the risk of pursuing a laparoscopic exploration and sampling outweighs the benefit. The patient has apprehension about reattempting CT-guided biopsy of the liver for sampling. Endoscopic ultrasound remains a possibility as long as we can coordinate its timing with regard to anesthesia, adequate anticoagulation to stabilize the pulmonary emboli and the patient's overall pulmonary status that would permit sedation during the study. If hepatic lesions are identified by EUS and can be acquired, this would be a reasonable method for sampling. This would also permit evaluation of the pancreas. CA 19-9 and CEA levels are pending. Clarification of the patient's colonoscopy records would be prudent and this may need to be ultimately repeated at some point. Because of the complex nature of the patient's current history including the PEs, background COPD and recent pneumothorax, I believe it is prudent for the patient to have an evaluation this evening or tomorrow morning with anesthesia, and by Dr. Foley to address any respiratory concerns. Options for anesthesia during endoscopic ultrasound, if the patient chooses to pursue this modality, would include propofol sedation instead of endotracheal intubation if there is a concern for the risk of direct trauma due to his recent pneumothorax. The timing of this procedure for sampling by whatever method will require cessation of anticoagulation at least briefly and endoscopic ultrasound could be considered over the next several days. Either maintaining heparin or transition to Lovenox would be reasonable. However, would avoid anticoagulants that would have a prolonged effect that would perhaps delay sampling. In addition, I believe oncology evaluation would be important at this time. I did speak with Dr. Morrison this evening and conveyed these recommendations that include anesthesia, pulmonary and oncology assessments. All the patient's questions were answered. We will follow with you and help coordinate timing of EUS if the patient agrees to this approach and a consensus for timing with the above consultants is reached. Presently, ERCP would not have utility as the biliary system is not dilated and would not likely yield suitable histology for diagnosis. Thank you for allowing me to participate in this patient's care. JUAN ANTONIO
[2017-02-15] MEDS: BUDESONIDE 0.5 MG/2 ML VIAL (PULMICORT) INH SCH ×2 (07:06→19:34)
[2017-02-15] MEDS: ARFORMOTEROL TART 15MCG/2ML VIAL INH SCH ×2 (07:06→19:34)
[2017-02-15 07:41] LABS: BASO % 0.7 %; BASO ABS # 0.07 K/uL (0-0.2); COMPLETE YES; EOS % 2.9 %; HEMATOCRIT 30.1 % (42-52); IG% 0.4 %; LYMPH ABS # 2.01 K/uL (1.2-3.4); MEAN CELL VOLUME 96.8 fL (80-100); MEAN CORPUSCULAR HEMOGLOBIN 31.8 pg (25-34); MEAN CORPUSCULAR HGB CONC 32.9 g/dl (32-36); PLATELET COUNT 251 K/uL (130-400); RED BLOOD COUNT 3.11 M/uL (4.7-6.1)
[2017-02-15 07:54] LABS: INR 1.1 (0.9-1.1); PARTIAL THROMBOPLASTIN RATIO 2.3; PROTHROMBIN TIME (PATIENT) 11.3 SECONDS (9.0-12.0)
[2017-02-15] MEDS: ASPIRIN 81 MG ECTAB PO SCH (08:05)
[2017-02-15] MEDS: LISINOPRIL 40 MG TAB PO SCH (08:06)
[2017-02-15] MEDS: ASCORBIC ACID 500 MG TAB PO SCH (08:06)
[2017-02-15] MEDS: CEROVITE ADV FORMULA TAB PO SCH (08:06)
[2017-02-15] MEDS: MONTELUKAST SOD 10 MG TAB PO SCH (08:06)
[2017-02-15 08:14] LABS: BUN/CREATININE RATIO 11.5 (10-20); CALCIUM 8.2 mg/dl (8.5-10.1); CREATININE 1.1 mg/dl (0.60-1.40); POTASSIUM 4.1 mmol/L (3.5-5.1)
[2017-02-15 08:17] LABS: ALB/GLOB RATIO 0.6 (0.9-2)
[2017-02-15] MEDS ORDERED: HEPARIN-STOP ORDER ONE (11:00)
[2017-02-15] MEDS ORDERED: NURSING VERBAL MED ORDER ONE ×2 (11:15→22:45)
--- NOTE | 2017-02-15 11:23 | Surgery Progress Note ---
Surgery Progress Note Date of Service Feb 15, 2017. Subjective pt feeling ok. no new complaints. Objective Vital Signs: Date Time Temp Pulse Resp B/P (MAP) Pulse Ox O2 Delivery O2 Flow Rate FiO2 02/15/17 08:00 Room Air 02/15/17 07:22 36.5 70 16 139/87 (104) 99 Room Air 02/15/17 07:06 71 16 97 Room Air 02/15/17 04:18 37.1 77 16 132/82 (99) 99 BiPAP 02/15/17 00:00 Room Air CPAP 02/14/17 23:40 37.6 55 16 126/72 (90) 98 Room Air 02/14/17 23:39 37.0 76 18 150/84 (106) 97 Room Air 02/14/17 19:32 74 16 98 Room Air 02/14/17 18:49 37.3 74 17 137/86 (103) 97 Room Air 02/14/17 16:00 96 Room Air 02/14/17 15:47 36.6 61 17 130/79 (96) 96 Room Air General Appearance: no apparent distress Head: normocephalic, atraumatic Neck: no JVD Respiratory/Chest: no respiratory distress, no accessory muscle use Abdomen: non distended, soft Laboratory Results: Results Past 24 Hours Test 02/14/17 16:10 02/15/17 06:46 Range/Units Carcinoembryonic Antigen 62.2 0-2.5 ng/ml White Blood Count 10.60 4.8-10.8 K/uL Red Blood Count 3.11 4.7-6.1 M/uL Hemoglobin 9.9 14.0-18.0 g/dL Hematocrit 30.1 42-52 % Mean Corpuscular Volume 96.8 80-100 fL Mean Corpuscular Hemoglobin 31.8 25-34 pg Mean Corpuscular Hemoglobin Concent 32.9 32-36 g/dl Platelet Count 251 130-400 K/uL Mean Platelet Volume 9.0 7.4-10.4 fL Neutrophils (%) (Auto) 67.0 % Lymphocytes (%) (Auto) 19.0 % Monocytes (%) (Auto) 10.0 % Eosinophils (%) (Auto) 2.9 % Basophils (%) (Auto) 0.7 % Neutrophils # (Auto) 7.11 1.4-6.5 K/uL Lymphocytes # (Auto) 2.01 1.2-3.4 K/uL Monocytes # (Auto) 1.06 0.11-0.59 K/uL Eosinophils # (Auto) 0.31 0-0.5 K/uL Basophils # (Auto) 0.07 0-0.2 K/uL RDW Standard Deviation 52.5 36.4-46.3 fL RDW Coefficient of Variation 14.9 11.5-14.5 % Immature Granulocyte % (Auto) 0.4 % Immature Granulocyte # (Auto) 0.04 0.00-0.02 K/uL Prothrombin Time 11.3 9.0-12.0 SECONDS Prothromb Time International Ratio 1.1 0.9-1.1 Activated Partial Thromboplast Time 59.7 21.0-31.0 SECONDS Partial Thromboplastin Ratio 2.3 Sodium Level 140 136-145 mmol/L Potassium Level 4.1 3.5-5.1 mmol/L Chloride Level 107 98-107 mmol/L Carbon Dioxide Level 27 21-32 mmol/L Anion Gap 6.0 3-11 mmol/L Blood Urea Nitrogen 13 7-18 mg/dl Creatinine 1.10 0.60-1.40 mg/dl Est Creatinine Clear Calc Drug Dose 75.1 ml/min Estimated GFR () 79.5 Estimated GFR (Non- 68.6 BUN/Creatinine Ratio 11.5 10-20 Random Glucose 96 70-99 mg/dl Calcium Level 8.2 8.5-10.1 mg/dl Total Bilirubin 1.6 0.2-1 mg/dl Aspartate Amino Transf (AST/SGOT) 135 15-37 U/L Alanine Aminotransferase (ALT/SGPT) 149 12-78 U/L Alkaline Phosphatase 637 45-117 U/L Total Protein 6.7 6.4-8.2 gm/dl Albumin 2.6 3.4-5.0 gm/dl Globulin 4.1 2.5-4.0 gm/dl Albumin/Globulin Ratio 0.6 0.9-2 Assessment & Plan Had basically a team meeting with pt, Dr. Estrada, and Dr. Benavides we discussed his different options and the pros/cons of each at length. we have decided to attempt Endoscopic US with attempt at bx to evaluate both the pancreas and liver lesions IF this is unsuccessful, I rec reattempt at CT guided IR biopsy. surgery really should be last resort for tissue bx and quite honestly unnecessary. please call if we can be of assistance.
[2017-02-15] MEDS: HEPARIN 25,000 UNIT/500ML D5W 500 ML IV PRN (11:38)
--- NOTE | 2017-02-15 13:17 | GASTROENTEROLOGY PROGRESS NOTE ---
DATE: 02/15/2017 SUBJECTIVE: The patient was seen with surgery and the hospitalist Dr. Estrada. On last evening, several issues were discussed with the patient and and without health staff regarding approaches to diagnosis and issues that need to be readdressed prior to diagnostics. Overall, the patient is doing well and ate breakfast this morning around 8:00. He is on heparin drip for multiple pulmonary emboli. Several items were discussed regarding possible alternatives including outpatient referral to [facility] for the concerns of higher risk and if surgical aspiration were needed for sampling of the liver. Alternatively transfer to [place] for interventional radiology was reasonable and the patient would consider this. One last option is endoscopic ultrasound if anesthesia can provide propofol style sedation instead of endotracheal intubation and a general anesthesia. This may minimize the risk of pneumothorax. After a lengthy consideration and discussing all the risks and benefits to all of these, the patient is agreeable to endoscopic ultrasound today. Because of his meal at breakfast this cannot occur before 4:00 p.m. and I am currently making arrangements with anesthesiology and pathology to have the pathologist available for rapid reading to ensure that adequate samples are obtained. These cases were discussed with the covering anesthesiologist and pathologist. In the meantime, heparin will be held. The patient will be made n.p.o. until the test is completed. The patient's CEA level was elevated at 68. He did have a history of a colonoscopy on 2 occasions approximately 10 and 4 years ago respectively and no significant findings were described by the patient or his . Given that there is also suspicious pancreatic lesion in the uncinate, this may reflect a primary pancreatic malignancy with metastases to the liver. Regarding the patient's liver function tests, these have maintained a bilirubin between 1.7 and 1.6 and alkaline phosphatase in the 600 range with mild to moderate transaminase elevation. However, on imaging, there is no evidence of ductal dilation either intra or extrahepatic and I suspect that these liver tests reflect the intrahepatic tumor burden that may be interesting small branches and would not be amenable to ERCP. In addition, ERCP is unlikely to yield the tissue diagnosis. We will plan for EUS today. His medications were reviewed and pulmonary consultation is currently in progress along with oncology. PHYSICAL EXAMINATION: VITAL SIGNS: The patient otherwise did well overnight, is currently afebrile, although did have a slight temperature at approximately midway at 37.6; however, since that time, several vital signs assessment showed afebrile status with blood pressure 139/87, respirations 16, 99% on room air, and heart rate 70. GENERAL: The patient is awake, alert, and oriented accompanied by his spouse. physical exam is unchanged from yesterday. ABDOMEN: Soft and mildly tender in the right upper quadrant. LUNGS: Overall are clear to auscultation, although slightly distant breath sounds. EXTREMITIES: Without edema. HEENT: Sclerae are anicteric. Conjunctivae moist. Oral mucosa moist. ASSESSMENT AND PLAN: Plan as outlined above. Risks, benefits and alternatives were thouroughly discuused with patient and spouse and they agree to proceed with EUS We will resume heparin after us is endoscopic ultrasound is completed as long as there are no signs of overt or significant bleeding. Further recommendations to follow. MTDD
--- NOTE | 2017-02-15 13:27 | ONCOLOGY CONSULTATION ---
DATE OF CONSULTATION: 02/15/2017 REASON FOR CONSULTATION: Hepatic metastatic disease, primary unknown. HISTORY OF PRESENT ILLNESS: Mr. Ponce is a very pleasant 66-year-old gentleman from [facility], who was a direct admit from his acid correction hand because of recent diagnosis of pulmonary embolism. Apparently, the patient had noticed worsening shortness of breath that started a couple months prior and had developed subsequent right upper quadrant pain. He describes right upper quadrant pain as an intermittent dull ache, which has no aggravating or alleviating factors with the exception of maybe change in position. On evaluation, he was found to have gallstones and multiple lesions in the liver. He was subsequently scheduled for I assume ultrasound guided liver biopsy, which took place at [facility]. Unfortunately, procedure did not go well and Mr. Ponce developed a pneumothorax, requiring chest tube placement. Because of the concern for possible pulmonary embolism, the patient was admitted to [facility] and underwent a workup including a CTA of the chest and bilateral lower extremity Dopplers. CTA of chest confirms segmental and subsegmental pulmonary emboli seen in the lower lobes bilaterally. Lower extremity Dopplers were negative for DVT. I have been asked to evaluate Mr. Cardenas for metastatic carcinoma, primary unknown. PAST MEDICAL HISTORY: Consists of hypertension, COPD, GERD, pulmonary embolism, and now metastatic carcinoma of unknown primary. MEDICATIONS: Prior to admission include daily vitamin C, daily aspirin 81 mg p.o., ferrous sulfate 65 mg p.o. q. daily, Flovent 220 mcg inhaler 3 puffs inhaled b.i.d., Hycodan syrup 5 mL p.o. q. 4 hours p.r.n., lisinopril 40 mg p.o. q. daily, Singulair 10 mg p.o. q. daily, simvastatin dose unknown p.o. q. daily, multivitamin p.o. q. daily, and Brovana 15 mcg/2 mL solution 1 b.i.d. ALLERGIES: TO CIPROFLOXACIN AND MEBENDAZOLE. FAMILY HISTORY: Significant for acute leukemia killed his father. Metastatic melanoma killed in his mother. There are various cancers on his father's side of the family as well. SOCIAL HISTORY: He is . 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 REVIEW OF SYSTEMS: GENERAL: Significant for a 30 pound weight loss and anorexia. Negative for fevers, chills or night sweats. SKIN: No rashes or lesions. No history of dermatoses. HEENT: Negative for headaches, lightheadedness or dizziness. No acute visual or hearing deficits. No sinus symptoms, sore throat or dysphagia. LYMPHATICS: No history of lymphoproliferative disorder or peripheral lymphadenopathy. CARDIAC: No history of coronary artery disease. No current angina or palpitations. PULMONARY: Recent diagnosis of bilateral pulmonary emboli. He is no longer short of breath or dyspneic. Positive for persistent nonproductive cough. GASTROINTESTINAL: Positive for right upper quadrant abdominal pain. No current pyrosis, hematochezia, melena or basia rectal bleeding. Denies nausea or vomiting. No diarrhea or constipation. GENITOURINARY: No history of prostate disease. No hematuria, dysuria, or urinary incontinence. PSYCHIATRIC: No underlying anxiety or depressive disorders. ENDOCRINE: Negative for diabetes or thyroid disease. NEUROLOGIC: Negative for seizure, stroke, or migraine headache. HEMATOLOGIC: Positive for anemia. PHYSICAL EXAMINATION: GENERAL: Very pleasant 66-year-old gentleman lying supine in bed, answers questions appropriately, in no acute distress. VITAL SIGNS: Temperature is 36.5, pulse 70, respiratory rate 16, and blood pressure 139/87. SKIN: Warm, dry, and noncyanotic without petechia, rash or ecchymosis. HEENT: Head, atraumatic and normocephalic. Eyes, PERRLA, EOMI. Sclerae nonicteric. No conjunctival injection. Nares are patent without rhinorrhea or discharge. Throat clear. Tongue midline. Mucous membranes are moist. NECK: Supple without JVD or thyromegaly. LYMPHATICS: No cervical, supraclavicular, axillary or inguinal palpable nodes. HEART: Regular rate and rhythm. No clicks, rubs, murmurs, or gallops. ABDOMEN: Tenderness in the right upper quadrant on palpation. Bowel sounds are active. No rigidity or guarding otherwise. EXTREMITIES: Musculoskeletal strength and pulses are equal. No clubbing, cyanosis or edema. NEUROLOGICALLY: He is awake, alert and oriented x3. Cranial nerves II-XII are intact. No gross motor or sensory deficits are noted. LABORATORY DATA: WBC count 10,600, hemoglobin 9.9, MCV 96.8, and platelet count 251,000. Sodium 140, potassium 4.1, chloride 107, carbon dioxide 27, BUN 13, and creatinine 1.10. AST 135, ALT 149, and alkaline phosphatase 637. Albumin decreased ____. Total bilirubin 1.6. CEA level 62.2. CA 19-9 pending. RADIOGRAPHIC DATA: Again, CTA of the chest reveals subsegmental pulmonary emboli bilaterally and innumerable hepatic lesions. IMPRESSION: 1. Pulmonary emboli. 2. Metastatic carcinoma, primary unknown. Suspect colorectal (liver involvement). 3. Hypoalbuminemia. 4. Elevated liver transaminases. 5. Anemia, unspecified, suspect iron deficiency versus chronic disease. PLAN: I met with Mr. Ponce at bedside this morning. I reviewed his most recent radiographic reports, lab reports and prior clinical notes. He apparently had been battling anorexia and has had a dramatic weight loss over the past month or so. He then developed shortness of breath, prompting a visit to his acid correction hand. Astutely, the acid correction hand suspected possible pulmonary emboli and was sent for CTA, which confirmed the diagnosis. He was subsequently admitted to hospital to begin unfractionated heparin. The described liver lesions were also biopsied, but unfortunately confirmatory tissue was not obtained and Mr. Ponce developed pneumothorax, requiring hospitalization in a chest tube. Therefore, metastatic diagnosis is yet to be established, his CEA is significantly elevated, but nonspecific. Nonetheless, CEA elevation is commonly seen in the setting of colorectal cancer, which is the most likely diagnosis. However, hepatobiliary, lung, and pancreatic cancers can all metastasize to the liver. I informally discussed the case with Dr. Estrada, the hospitalist. Gastroenterology has also been asked to evaluate Mr. Ponce and as it stands, endobronchial ultrasound is planned to obtain hepatic tissue for diagnosis. I have nothing further to recommend until diagnosis is confirmed. I would continue anticoagulation and subsequently once invasive procedures are complete, convert him to Coumadin to an INR of 2.5-3.5. I would also add iron studies to investigate the anemia. Thank you very much for allowing me to participate in his care. If you have any questions or concerns, feel free to contact me at any time. JUAN ANTONIO
--- NOTE | 2017-02-15 13:34 | Family Medicine Progress Note ---
Progress Note Date of Service Feb 15, 2017. 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 Found to have PE based on CTA. Currently clinically stable and satting well on RA w/ ot any shortness of breath or chest pain Pulmonary embolism: Risk factors: malignancy and recent hospitalization. Currently stable sating well on RA - Elevated d-dimer [id number] - CT chest revealed numerous small bilateral pulmonary emboli, including a small embolus within the distal left pulmonary artery. 6.1 cm subpleural left lower lobe opacity suggestive of a pulmonary infarct. - Venous Dopplers - no DVT - Started on IV heparin with bolus - will transition to Lovenox once ready for discharge -Held heparin at 1200 for EUS at 1600 with GI/Dr. 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 Colon cancer (Colonoscopy 2012 - removed at least 1 polyp) - Indeterminate 1.7 cm lucent left sixth rib lesion likely rib metastases - General surgery consulted for surgical liver biopsy per pt preference given adverse event with previous needle guided biopsy: risks outweigh benefits given PE and recent pneumothorax per Dr. Guillermo - Hematology/oncology consult: recommended seeing liver surgical robotics specialist at [facility] who is willing to see him outpatient Mon or next week and possible perform a surgical liver biopsy - Gastroenterology consulted for evaluation of the pancreatic mass: recommended EUS for pancreatic mass and likely liver lesion biopsy if anesthesia comfortable with propofol only for sedation given recent pneumothorax and risk for barotrauma with ET intubation - Records requested for colonoscopy, and recent care at [facility] - pending Transaminitis: -Likely secondary to hepatic lesions COPD: - Continue Brovana, Proventil Hypertension: - Continue losartan and amlodipine GERD: - Continue famotidine DVT prophylaxis: IV heparin Full code Disposition: Pending diagnostic work up Resident Physician Supervision Note: I interviewed and examined the patient. Discussed with Dr. Morrison and agree with findings and plan as documented in the note. Any exceptions or clarifications are listed here: None Documented By: Charles Natalie feeling ok. no new complaints. surgical bx too high risk for this facility. EXTENSIVE discussions with pt/, heme/onc, surgery, GI, pulmonary. ~60mins face to face with pt, additional ~30-60mins coordinating/discussing with specialists/etc. vitals noted nad but somewhat anxious breathing unlabored no pallor or icterus PEs - stable. heparin gtt - once post procedures can transition to lovenox. stable even before being treated but was symptomatic - pulmonary and i in agreement that benefits of making tissue dx outweighs risk of holding heparin for several hours hepatic mets - extensive discussions with multitude of options discussed. GI noted that w EUS likely they could get liver bx as well -- given taht this would be in the lower risk category (compared to surgical bx, and given pt's recent pneumothorax, more appealing to pt than IR bx, and also could simultaneously eval pancreatic possible mass) this appears the best current option - and if inadequate tissue/etc - can f/u at [facility] for eval for surgical bx next week or IR for bx next week -- either way without losing time in making dx since elective bx highly unlikely to be done on weekend anywhere. d/w pathology at pt's request as well at least 60mins face to face, at least 90mins (?120) on pt's case today Resident Involvement: Resident Care Provided Care Provided: Adult Hospital Medicine
--- NOTE | 2017-02-15 14:04 | CONSULTATION REPORT ---
DATE OF CONSULTATION: 02/15/2017 DATE OF CONSULTATION: 02/15/2017 REASON FOR CONSULTATION: Bilateral pulmonary emboli and pulmonary clearance for surgical procedure. HISTORY OF PRESENT ILLNESS: The patient is a 66-year-old male who we followed for several years with COPD who has had fall past several weeks to months. The patient was last seen in our office earlier this year, at which time his breathing had been doing well. The patient and his presented and saw me in the office as an outpatient on 02/13/2017 due to increasing shortness of breath. The patient was having complaints of shortness of breath for the past 2-3 months prior to being examined in the office on 02/13/2017. He and his also report that he was having difficulty with concentration, much more fatigued. He is having difficulty completing some mental tasks that he would normally be able to do. Because of the increased fatigue he presented to his PCP office. His PCP office did some blood work and found elevated liver test. Because of this, he did have imaging of his liver done and was found to have multiple lesions on the liver. Because of liver lesions he was scheduled for CT-guided biopsy done at [facility]. Unfortunately, during the procedure the patient's pleural cavity was punctured and the patient sustained a pneumothorax. Because of the pneumothorax, he did have to have a chest tube placed. The patient was hospitalized at [facility] for approximately 5 days during which time the patient spent 3 days in ICU. He never required intubation. The pneumothorax resolved completely per x-ray. The patient was discharged home. Unfortunately, patient continued to have progressive shortness of breath and got to the point where he could barely walk across the room without becoming very dyspneic. At that point patient's called the office and we evaluated him on 02/13/2017. He had no cough associated with this. No wheezing. He just had difficulty with his breathing. He did have a chest x-ray prior to being examined on 02/13/2017 that did not show any evidence of recurrence of pneumothorax. When he was evaluated in the office he denied any pleuritic chest pain. He denies any chest pain in general. He did have some discomfort at the insertion site of the chest tube. He also had some right upper quadrant abdominal pain in the area of the liver where the biopsy was done. He also brought up in the office that he had a 25 pound weight loss over the past few weeks. He reported that he did have some anorexia, just did not feel like eating, did not want to eat, states that he felt nauseated at times when he did eat. Denied any nausea or vomiting. States that he did have some difficulty moving his bowels and that his bowels had changed in color and his bowels were a very light almost white appearing color. There is no diarrhea. There is no melena, no hematochezia. He states he was voiding well. He had no difficulty with his voiding. He had no swelling in his extremities that he is aware of. At the office visit we did get the patient set up for a stat CT angiogram and also did CT imaging of the liver. The CT angiogram did show that patient had multiple bilateral pulmonary emboli and CT of the abdomen did show multiple low attenuation lesions as well as enlargement and infiltration. The patient was also found to most likely have a pulmonary infarct in the left lung base. It was also felt that there may be an area within the pancreas that was unusual and questionable masses. This measures about 2 cm. Because of these abnormal findings the patient was admitted to [facility] under the [facility] hospitalist service. The patient was started on anticoagulation in the form of heparin and both gastroenterology and surgery were consulted. Surgery felt patient was too high risk to do surgical intervention. Gastroenterology saw the patient, Dr. Benavides, who felt that possible endoscopic ultrasound would be a possibility. When I evaluated the patient today really voiced no significant new concerns, states his breathing was stable, it was not having any shortness of breath at rest, states he has not really been up moving around enough to determine if he is having shortness of breath with exertion. He has no pleuritic chest pain. When I saw him today he did have some right upper quadrant abdominal pain. He states it started after he tried to eat some breakfast this morning, otherwise no concerns or problems. No chest pain, no palpitations, no cough, no wheeze. He is saturating well on room air. No swelling in his extremities. PAST MEDICAL HISTORY: Includes COPD, gastroesophageal reflux disease, hypertension. FAMILY HISTORY: There is a maternal history of acquired immunodeficiency syndrome. Father of leukemia. Family history of malignant melanoma and heart disease. PAST SURGICAL HISTORY: Includes CT guided biopsy, chest tube insertion due to right-sided pneumothorax, history of appendectomy, Mohs surgery for forehead and nose abnormality. SOCIAL HISTORY: The patient is retired. He is a nonsmoker, nondrinker. HOME MEDICATIONS: Include Brovana, ascorbic acid, aspirin, iron sulfate, fluticasone, Hycodan, lisinopril, Singulair, multivitamins, simvastatin. ALLERGIES: CIPROFLOXACIN AND MEBENDAZOLE. REVIEW OF SYSTEMS: As above, otherwise unremarkable. PHYSICAL EXAMINATION: GENERAL: The patient is a 66-year-old male lying in bed in no acute distress. He is alert and oriented x3. Mood is good. Affect is good. No exertional dyspnea with talking. No accessory muscle use. VITAL SIGNS: Temp 36.5, pulse 70, respirations 16, blood pressure is 139/87, pulse ox 99% on room air. HEAD, EYES, EARS, NOSE, AND THROAT: Normocephalic, atraumatic. Pupils equal, round and reactive to light and accommodation. Extraocular movements are intact. [place] moist gingival and buccal mucosa. NECK: Supple. No mass. No adenopathy. No bruit. His neck is somewhat short, little bit thick. CHEST: Diminished breath sounds bilaterally, overall chest clear. There is no wheeze, rales or rhonchi appreciated. CARDIOVASCULAR: Regular rate and rhythm. No murmurs, gallops or rubs. ABDOMEN: Abdomen is slightly distended. Bowel sounds are present throughout. The patient does have some right upper quadrant tenderness, no rebound tenderness. No guarding, rigidity. No evidence of ascites. EXTREMITIES: No erythema or edema. There is no cyanosis or clubbing noted. NEUROLOGIC: Cranial nerves II through XII are grossly intact. No focal deficit. CURRENT LABORATORY DATA: Shows a white count of 10,000, H&H 9.9 and 30.1, platelet count 251,000. BUN 13, creatinine 1.1, AST is down to 135 from 159, ALT is down to 149 from 189. Alkaline phosphatase is down to 637 from 701. Albumin is low at 2.6, globulin is high at 4.1. CEA is elevated at 62.2. CA19-9 is pending. This patient did have an ammonia level done which was 20. In addition to the CT angiogram described above and the abdominal CT patient did have a venous Doppler of bilateral lower extremities which was unremarkable. IMPRESSION: This patient is a 66-year-old male with known COPD who last had PFTs done in November of 2016 showing a forced vital capacity is 4.15 liters which is 105% predicted, an FEV1 of 3.18 liters which is 101% predicted and FEV1/FVC ratio of 77%, FEF 25-75 of 2.67 liters per second which is 85% predicted. Residual volume of 2.4 liters which is 100% of predicted and a volume adjusted diffusion capacity of 96% for interpretation of minimal obstructive lung defect with a significant response to bronchodilators who has had an unfortunate series of events leading to his hospitalization. The patient currently has bilateral multiple pulmonary emboli and is being adequately anticoagulated. At this time continue anticoagulation. The patient also has multiple liver lesions as well as a potential pancreatic lesion and there is a procedure proposed for later this afternoon of an endoscopic ultrasound with possible biopsy. At this point I feel that patient is stable to proceed with this procedure, would recommend that the patient have propofol sedation instead of endotracheal intubation; however, I feel that patient could tolerated the procedure. He does represent a moderate surgical risk with other comorbidities, but I feel that from a pulmonary standpoint he is stable enough at this time. At this point, the patient will need to continue on anticoagulation for the pulmonary emboli with pulmonary infarction. He has not required any additional oxygen support at this time. Continue his home medications. We will continue to follow the patient through hospitalization.
[2017-02-15] MEDS ORDERED: KETOROLAC TROMETHAMINE 15 MG/ML VIAL IV. PRN (14:45)
[2017-02-15] MEDS ORDERED: MIDAZOLAM HCL 1 MG/ML 2ML VIAL ONE (16:29)
[2017-02-15] MEDS ORDERED: FENTANYL CITRATE INJ 50 MCG/1 ML 2 ML VIAL ONE (16:30)
[2017-02-15] MEDS ORDERED: EpHEDrine SULFATE INJ 50 MG/ML AMP IV PRN (17:30)
[2017-02-15] MEDS ORDERED: FENTANYL CITRATE INJ 50 MCG/1 ML 2 ML VIAL IV PRN (17:30)
[2017-02-15] MEDS ORDERED: ATROPINE SULFATE 0.1 MG/ML 5ML SYR IV PRN (17:30)
[2017-02-15] MEDS ORDERED: SUCCINYLCHOLINE CHLORIDE 20 MG/ML 10 ML VIAL IV ONE (18:31)
[2017-02-15] MEDS ORDERED: LIDOCAINE HCL 2% 2 ML VIAL (20MG/ML) ONE (18:31)
[2017-02-15] MEDS ORDERED: PROPOFOL IV EMULSION 10 MG/ML 20 ML VIAL IV ONE (18:31)
[2017-02-15] MEDS ORDERED: ROCURONIUM BROMIDE 10 MG/ML 5 ML VIAL IV ONE (18:31)
--- NOTE | 2017-02-15 18:36 | GI REPORT ---
Procedure Date: 02/15/2017 5:01 PM Procedure: Upper EUS Indications: Suspected mass in liver on CT scan, Suspected mass in pancreas on CT scan Medicines: General Anesthesia Complications: No immediate complications. Estimated blood loss: None. Estimated Blood Loss: Estimated blood loss: none. Procedure: Pre-Anesthesia Assessment: - Prior to the procedure, a History and Physical was performed, and patient medications and allergies were reviewed. The patient's tolerance of previous anesthesia was also reviewed. The risks and benefits of the procedure and the sedation options and risks were discussed with the patient. All questions were answered, and informed consent was obtained. Prior Anticoagulants: The patient has taken no previous anticoagulant or antiplatelet agents. ASA Grade Assessment: III - A patient with severe systemic disease. After reviewing the risks and benefits, the patient was deemed in satisfactory condition to undergo the procedure. After obtaining informed consent, the endoscope was passed under direct vision. Throughout the procedure, the patient's blood pressure, pulse, and oxygen saturations were monitored continuously. The Endosonoscope was introduced through the mouth, and advanced to the duodenum for ultrasound examination from the esophagus, stomach and duodenum. The upper EUS was accomplished without difficulty. The patient tolerated the procedure well. Findings: Endoscopic Finding : The examined esophagus was normal. The entire examined stomach was normal. The examined duodenum was normal. Endosonographic Finding : The esophagus, stomach and duodenum and adjacent structures were visualized endosonographically. There was no sign of significant endosonographic abnormality in the esophagus. No pathologic lymphadenopathy was identified. Endosonographic images of the stomach were unremarkable. No pathologic lymphadenopathy and no masses were identified. There was no sign of significant endosonographic abnormality in the examined duodenum. No pathologic lymphadenopathy was identified. There was no sign of significant endosonographic abnormality in the common bile duct. The maximum diameter of the duct was 3 mm. No pathologic lymphadenopathy and ducts of normal caliber were identified. Multiple round lesions were identified endosonographically in the left lobe of the liver, in the right lobe of the liver and in the entire examined liver. The endosonographic appearance was suggestive of metastases. The lesions were hypoechoic and homogenous. The endosonographic borders were well-defined. Fine needle aspiration for cytology was performed. Color Doppler imaging was utilized prior to needle puncture to confirm a lack of significant vascular structures within the needle path. Three passes were made with the 22 gauge needle using a transgastric approach. A stylet was used. A corn breeder was present and performed a preliminary cytologic examination. The cellularity of the specimen was adequate. Final cytology results are pending. Verification of patient identification for the specimen was done by the physician and oil change technician using the patient's name and medical record number. There was no sign of significant endosonographic abnormality in the pancreatic head and in the pancreatic body. The pancreas was well visualized, no pathologic lymphadenopathy, no masses, the pancreatic duct was well visualized from ampulla to tail. No lymphadenopathy seen. Impression: - Normal esophagus. - Normal stomach. - Normal examined duodenum. - There was no sign of significant pathology in the esophagus. - Endosonographic images of the stomach were unremarkable. - There was no sign of significant pathology in the examined duodenum. - There was no sign of significant pathology in the common bile duct. - Multiple metastatic lesions were found in the left lobe of the liver, in the right lobe of the liver and in the entire examined liver. Fine needle aspiration performed. - There was no sign of significant pathology in the pancreatic head and in the pancreatic body. A discrete mass in the pancreas is not identified. Recommendation: - [facility]. - Await final diagnosis next week. OK to resume heparin in 4 hours and OK to resume diet as tolerated. May need to consider colonoscopy depending on FNA finding. Case discussed with pt's spouse. MD Alvaro Mcclendon MD 02/15/2017 6:35:41 PM This report has been signed electronically. Note Initiated On: 02/15/2017 5:01 PM I attest to the content of the Intraoperative Record and orders documented therein, exceptions below
--- NOTE | 2017-02-15 18:51 | Anesthesiology Progress Note ---
Anesthesia Post Op Note Date & Time Feb 15, 2017 at 18:51 Vital Signs Pain Intensity: 0 Vital Signs Past 12 Hours Date Time Temp Pulse Resp B/P (MAP) Pulse Ox O2 Delivery O2 Flow Rate FiO2 02/15/17 18:40 85 22 127/79 99 Oxymask 10 02/15/17 18:30 84 20 122/73 100 Oxymask 10 02/15/17 18:23 36.8 86 18 125/72 100 Oxymask 10 02/15/17 16:00 37.1 73 16 130/76 (94) 98 Room Air 02/15/17 15:24 36.8 75 18 124/89 (101) 95 Room Air 02/15/17 12:08 36.4 65 18 118/66 (83) 98 BiPAP 02/15/17 08:00 Room Air 02/15/17 07:22 36.5 70 16 139/87 (104) 99 Room Air 02/15/17 07:06 71 16 97 Room Air Notes Mental Status: alert / awake / arousable, participated in evaluation Pt Amnestic to Procedure: Yes Nausea / Vomiting: adequately controlled Pain: adequately controlled Airway Patency, RR, SpO2: stable & adequate BP & HR: stable & adequate Hydration State: stable & adequate Anesthetic Complications: no major complications apparent
[2017-02-15] MEDS: SIMVASTATIN 20 MG TAB PO SCH (21:26)
[2017-02-15] MEDS ORDERED: HEPARIN 25,000 UNIT/500ML D5W 500 ML IV PRN (23:00)
[2017-02-15] MEDS: ACETAMINOPHEN 325 MG TAB PO PRN (23:04)
[2017-02-16 00:48] VITALS: BP 141/86; PULSE 86; TEMP 37.7; O2SAT 99
[2017-02-16 01:18] LABS: PARTIAL THROMBOPLASTIN RATIO 1.4
[2017-02-16] MEDS: NSS + 20MEQ KCL 1000ML 1,000 ML IV SCH ×2 (01:25→11:20)
[2017-02-16] MEDS ORDERED: HEPARIN IV BOLUS 7,000 UNIT in SYRINGE 0 ML IV STA (02:58)
[2017-02-16 04:04] VITALS: BP 133/70; PULSE 72; TEMP 37.1; O2SAT 97
[2017-02-16 06:32] VITALS: Ht 175.3 cm; Wt 99.9 kg
[2017-02-16 07:21] VITALS: BP 135/88; PULSE 66; TEMP 36.9; O2SAT 99
[2017-02-16] MEDS: ARFORMOTEROL TART 15MCG/2ML VIAL INH SCH (07:22)
[2017-02-16] MEDS: BUDESONIDE 0.5 MG/2 ML VIAL (PULMICORT) INH SCH (07:22)
[2017-02-16 07:25] VITALS: PULSE 68; O2SAT 97
[2017-02-16] MEDS: LISINOPRIL 40 MG TAB PO SCH (08:00)
[2017-02-16] MEDS: ASCORBIC ACID 500 MG TAB PO SCH (08:00)
[2017-02-16] MEDS: ACETAMINOPHEN 325 MG TAB PO PRN (08:01)
[2017-02-16] MEDS: CEROVITE ADV FORMULA TAB PO SCH (08:38)
[2017-02-16] MEDS: MONTELUKAST SOD 10 MG TAB PO SCH (08:38)
[2017-02-16] MEDS: ASPIRIN 81 MG ECTAB PO SCH (08:38)
[2017-02-16 10:25] LABS: BASO % 0.5 %; BASO ABS # 0.05 K/uL (0-0.2); COMPLETE YES; EOS % 2.7 %; HEMATOCRIT 31.6 % (42-52); IG% 0.4 %; LYMPH % 16.6 %; LYMPH ABS # 1.58 K/uL (1.2-3.4); MEAN CELL VOLUME 96.6 fL (80-100); MEAN CORPUSCULAR HEMOGLOBIN 29.7 pg (25-34); MEAN CORPUSCULAR HGB CONC 30.7 g/dl (32-36); MEAN PLATELET VOLUME 8.8 fL (7.4-10.4); MONO % 10.5 %; NEUT % 69.3 %; PLATELET COUNT 251 K/uL (130-400); RED BLOOD COUNT 3.27 M/uL (4.7-6.1); WHITE BLOOD COUNT 9.49 K/uL (4.8-10.8)
--- NOTE | 2017-02-16 10:50 | Hematology/Oncology Prog Note ---
Hematology/Onc Progress Note Date of Service Feb 16, 2017. 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 Pulmonary embolus Medications Medications Administered Medications (Trade) Dose Ordered Sig/Pedro Pablo Route Start Time Stop Time Status Last Admin Dose Admin Acetaminophen (Tylenol Tab) 650 mg Q4H PRN PO 02/13/17 21:00 03/15/17 20:59 Future hold 02/16/17 08:01 650 MG Aspirin (Ecotrin Tab) 81 mg DAILY PO 02/14/17 08:00 03/16/17 07:59 02/16/17 08:38 81 MG Lisinopril (Zestril Tab) 40 mg DAILY PO 02/14/17 08:00 03/16/17 07:59 02/15/17 08:06 40 MG Ascorbic Acid (Vitamin C Tab) 500 mg DAILY PO 02/14/17 08:00 03/16/17 07:59 02/16/17 08:00 500 MG Multivitamins/ Minerals (Multivitamin W/ Minerals Tab) 1 tab DAILY PO 02/14/17 08:00 03/16/17 07:59 02/16/17 08:38 1 TAB Simvastatin (Zocor Tab) 20 mg HS PO 02/14/17 21:00 03/16/17 20:59 02/15/17 21:26 20 MG Heparin Sodium (Porcine) 7000 unit/Syringe 7 ml @ 10 mls/min NOW STAT IV 02/13/17 21:49 02/13/17 21:50 DC 02/13/17 22:34 10 MLS/MIN Heparin Sodium/ Dextrose 500 ml @ 30 mls/hr [id number] PRN IV 02/13/17 22:00 02/15/17 12:00 DC 02/15/17 11:38 30 MLS/HR Montelukast Sodium (Singulair Tab) 10 mg DAILY PO 02/14/17 08:00 03/15/17 20:59 02/16/17 08:38 10 MG Potassium Chloride/Sodium Chloride 1,000 ml @ 100 mls/hr Q10H IV 02/13/17 23:30 03/15/17 23:29 02/16/17 01:25 100 MLS/HR Lorazepam 0.5 mg/ Syringe 1 ml @ 1 mls/min Q4H PRN IV 02/13/17 23:30 03/15/17 23:29 02/14/17 00:10 1 MLS/MIN Famotidine 20 mg/ Dextrose 102 ml @ 204 mls/hr Q12@00,12 IV 02/14/17 00:00 03/16/17 00:00 02/15/17 23:39 204 MLS/HR Budesonide (Pulmicort Respules 0.5MG/ 2ML Neb Soln) 0.5 mg BIDR INH 02/14/17 08:00 03/16/17 07:59 02/16/17 07:22 0.5 MG Arformoterol Tartrate (Brovana 15MCG/ 2ML Neb Soln) 15 mcg BIDR INH 02/14/17 08:00 03/16/17 07:59 02/16/17 07:22 15 MCG Miscellaneous (Stop Order) 1 ea ONE ONCE N/A 02/15/17 11:00 02/15/17 11:01 DC 02/15/17 11:05 1 EA Miscellaneous (Stop Order) 1 ea ONE ONCE N/A 02/15/17 12:00 02/15/17 12:01 DC 02/15/17 12:11 1 EA Ketorolac Tromethamine (Toradol Inj) 15 mg DAILY PRN IV. 02/15/17 14:45 02/15/17 23:59 DC 02/15/17 14:53 15 MG Heparin Sodium (Porcine) 7000 unit/Syringe 7 ml @ 10 mls/min NOW STAT IV 02/16/17 02:58 02/16/17 02:59 DC 02/16/17 03:10 10 MLS/MIN Subjective He continues to have pain in the right upper quadrant of his abdomen. He grades the pain at 2.0. He is justifiably anxious and depressed. He denies new shortness of breath or hemoptysis. Review of Systems: Constitutional: Negative for night sweats, or fever Eyes: Negative for event change of vision ENT: Negative for epistaxis, nasal discharge, sore throat, or deafness Cardiovascular: Negative for chest pain, palpitations, dizziness, diaphoresis Respiratory: Negative for new shortness of breath,hemoptysis, or purulent cough Gastrointestinal: Negative for diarrhea, hematemesis, melena, nausea, vomiting , or dyspepsia Integumentary (skin): Negative for rash or jaundice discoloration Neurological: Negative for weakness, seizure activity, headache, or dizziness Lymphatic/Hematologic: Negative for petechiae, bleeding or new adenopathy Musculoskeletal: Negative for new joint or back pain Allergic/Immunologic: Negative for unusual rash or pruritis. Vital Signs Vital Signs Past 12 Hours Date Time Temp Pulse Resp B/P (MAP) Pulse Ox O2 Delivery O2 Flow Rate FiO2 02/16/17 08:00 Room Air 02/16/17 07:25 68 16 97 Nasal Cannula 2.0 02/16/17 07:21 36.9 66 20 135/88 (104) 99 02/16/17 04:04 37.1 72 18 133/70 (91) 97 BiPAP 02/16/17 00:48 37.7 86 16 141/86 (104) 99 Nasal Cannula 2.0 02/16/17 00:00 CPAP Physical Exam Constitutional: vitals are stable. Eyes: Eyes are PARAM EOMI without conjuctival erythema or icterus. ENT: External examination was negative for masses. Neck: Negative for masses or palpable thyromegaly Respiratory: Lung sounds were generally clear bilaterally. No pleuritic pain Cardiovascular: Heart was RRR without significant murmur, gallops aoe rubs Gastrointestinal: No palpable hepatic or splenomegaly. The abdomen was soft with normal bowel sounds. Lymphatic system: there was no palpable peripheral lymphadenopathy Musculoskeletal System: The musculoskeletal system seemed concordant with age. Skin: The skin was negative for jaundice. Neurologic exam: The exam was negative for any focal findings. Deep tendon reflexes were equal and symmetrical. Psychiatric exam: Was essentially negative with normal mood and effect. Extremities: Negative for edema or erythema Laboratory Last 24 Hours Test 02/16/17 00:31 02/16/17 10:02 Activated Partial Thromboplast Time 35.5 SECONDS Partial Thromboplastin Ratio 1.4 White Blood Count 9.49 K/uL Red Blood Count 3.27 M/uL Hemoglobin 9.7 g/dL Hematocrit 31.6 % Mean Corpuscular Volume 96.6 fL Mean Corpuscular Hemoglobin 29.7 pg Mean Corpuscular Hemoglobin Concent 30.7 g/dl Platelet Count 251 K/uL Mean Platelet Volume 8.8 fL Neutrophils (%) (Auto) 69.3 % Lymphocytes (%) (Auto) 16.6 % Monocytes (%) (Auto) 10.5 % Eosinophils (%) (Auto) 2.7 % Basophils (%) (Auto) 0.5 % Neutrophils # (Auto) 6.56 K/uL Lymphocytes # (Auto) 1.58 K/uL Monocytes # (Auto) 1.00 K/uL Eosinophils # (Auto) 0.26 K/uL Basophils # (Auto) 0.05 K/uL RDW Standard Deviation 52.6 fL RDW Coefficient of Variation 15.0 % Immature Granulocyte % (Auto) 0.4 % Immature Granulocyte # (Auto) 0.04 K/uL Assessment & Plan Patient yesterday had an ERCP. Ultrasound examination of the pancreas was negative for masses. Biopsy and cytology were done of the hepatic nodularity. Those results will probably be available Saturday afternoon. His pain is chronic and are constant at 2.0. He states that Tylenol might be helpful seems to control this. Alternatively he feels that nonsteroidals might also control. If possible to control with just acetaminophen then that might be better at this juncture particularly well on continued anticoagulation. In regards to anticoagulation I suggest that he will be on low molecular weight heparin going forward. Could then transition to Lovenox 1.5 mg/kg subcu once daily and can move away from continuously infused heparin. His vitals are stable. We will await the results of yesterday's biopsy.
[2017-02-16 10:53] LABS: BUN/CREATININE RATIO 11.9 (10-20); CREATININE 0.99 mg/dl (0.60-1.40); POTASSIUM 4.1 mmol/L (3.5-5.1)
[2017-02-16 10:56] LABS: ALB/GLOB RATIO 0.6 (0.9-2)
[2017-02-16 10:57] LABS: INR 1.1 (0.9-1.1); PARTIAL THROMBOPLASTIN RATIO 4.2; PROTHROMBIN TIME (PATIENT) 11.7 SECONDS (9.0-12.0)
[2017-02-16] MEDS: LORAZEPAM INJ 0.5 MG in SYRINGE 0.75 ML IV PRN (11:18)
[2017-02-16 11:20] VITALS: BP 121/80; PULSE 72; TEMP 36.8; O2SAT 97
[2017-02-16] MEDS: FAMOTIDINE IV INJ 20 MG in DEXTROSE 5% 100ML 100 ML IV SCH (11:21)
[2017-02-16] MEDS ORDERED: NURSING VERBAL MED ORDER ONE (12:30)
[2017-02-16] MEDS ORDERED: ENOXAPARIN 150 MG/1ML SYR SQ SCH ×2 (13:00→15:00)
[2017-02-16] MEDS ORDERED: LVNIS150 SQ (13:21)
--- NOTE | 2017-02-16 13:23 | Discharge Instructions ---
Discharge Instructions Date of Service Feb 16, 2017. Admission Reason for Admission: Pulmonary Embolism Discharge Discharge Diagnosis / Problem: pulmonary embolism, liver metastatic lesions Discharge Goals Goal(s): Diagnostic testing, Therapeutic intervention Activity Recommendations Activity Limitations: resume your previous activity . Instructions / Follow-Up Instructions / Follow-Up You presented with chest heaviness and shortness of breath concerning for pulmonary embolism. You were found to have numerous small pulmonary emboli ( blood clots in your lungs) based on a CT of your chest likely from your cancer diagnosis given your liver metastatic lesions as cancer makes your blood thicker and more likely to form clots. However, over the course of your hospitalization your symptoms improved and you did not require any oxygen. Your pulmonary emboli remained stable on heparin drip and we transitioned you to Lovenox 150mg/1ml subcutaneous injections once a day on discharge. The nurses instructed you and your on how to give the injections. For your liver lesions, we considered surgical biopsy for diagnostic purposes given the failed CT guided biopsy attempt which resulted in a pneumothorax but it was determined to be too high risk given your pulmonary emboli and especially the recent pneumothorax. We had an extensive discussion with you, your , hematology/oncology, general surgery, gastroenterology and pulmonology and discussed the multitude of options available. The GI doctor suggested Endoscopic ultrasound (EUS) as an option to obtain a liver biopsy especially if he finds any lesions in the left lobe of your liver as it is a lower risk procedure not requiring anesthesia involving endotracheal intubation which could cause more barotrauma and it was a better option to you than Ct guided biopsy. The EUS would also enable us to view the pancreas and the reported mass on CT. The EUS was performed on 02/15/17 with propofol sedation and an adequate liver biopsy was obtained. The EUS revealed a normal esophagus, stomach, duodenum (1st part of small intestine) and common bile duct. Multiple lesions were seen throughout the liver but no pancreatic masses were noted. The results from the EUS biopsy should be available next week Saturday/Saturday. We have requested our nurse navigator to provide you an appointment with Dr. Rivera (the oncologist) and Dr. Benavides (GI doctor) to follow up on biopsy results as well as any colonoscopy you may need. You will also need to see your primary care doctor in 1 week to follow up. We treated your high blood pressure, COPD, and acid reflux with your home medications during your hospitalization. -Prescribed Lovenox (Enoxaparin) 150mg/1ml injections every 24hrs at approximately the same time every day (can move forward by 30 minutes each day to give later during the day if you prefer) -Prescription sent to [facility] ([address] [place] [address]) as they have a 13 day supply. [facility] pharmacy in [place] did not have any at the moment but could order the remaining dose for you. -Encourage you to avoid taking any non-steroidal anti-inflammatory medications such as ibuprofen while you are on the Heparin to avoid irritating your gut lining -Follow up with Dr. Benavides for biopsy results and potential colonoscopy -Follow up with Dr. Rivera, oncologist for metastatic liver lesion and further treatment -Follow up with your primary care doctor within a week Current Hospital Diet Patient's current hospital diet: Regular Diet, AHA Diet (Heart Healthy), Low Sodium Diet (2gm Na) Discharge Diet Recommended Diet: Regular Diet, AHA Diet (Heart Healthy), Low Sodium Diet (2gm Na) Procedures Procedures Performed: Endoscopic ultrasound, with fine needle aspirations chest CTA Abdominal CT Venous doppler Pending Studies Studies pending at discharge: yes List of pending studies: pathology results from biopsy Medical Emergencies . Who to Call and When: Medical Emergencies: If at any time you feel your situation is an emergency, please call 911 immediately. . Non-Emergent Contact Non-Emergency issues call your: Primary Care Provider, Oncologist . . "Provider Documentation" section prepared by [employer] Morrison. . VTE Core Measure Inpt VTE Proph given/why not?: Other Anticoagulation (IV heparin)
[2017-02-16 13:40] VITALS: BP 121/80; PULSE 72; TEMP 36.8; O2SAT 97
[2017-02-16] MEDS ORDERED: LOVENOX TEACHING KIT SCH (13:45)
--- NOTE | 2017-02-16 16:07 | Discharge Summary ---
Discharge Summary Date of Service Feb 16, 2017. (Issac Morrison M.D.) Discharge Summary Admission Date: Feb 13, 2017 at 18:20 Discharge Date: Feb 16, 2017 Discharge Disposition: Home Principal Diagnosis: pulmonary embolism, hepatic liver metasteses Problems/Secondary Diagnoses: transaminitis COPD HTN GERD Immunizations: Have You Had Influenza Vaccine: Unknown History of Tetanus Vaccine?: Unknown History of Pneumococcal: Unknown History of Hepatitis B Vaccine: Unknown Procedures: EUS with liver biopsy 02/15/17 Impression: - Normal esophagus. - Normal stomach. - Normal examined duodenum. - There was no sign of significant pathology in the esophagus. - Endosonographic images of the stomach were unremarkable. - There was no sign of significant pathology in the examined duodenum. - There was no sign of significant pathology in the common bile duct. - Multiple metastatic lesions were found in the left lobe of the liver, in the right lobe of the liver and in the entire examined liver. Fine needle aspiration performed. - There was no sign of significant pathology in the pancreatic head and in the pancreatic body. A discrete mass in the pancreas is not identified. CT abdomen 02/13/17 FINDINGS: Lung bases: The heart is normal in size and without pericardial effusion. Emphysematous change is suggested. Dependent consolidation is noted at the left lung base. No pleural effusion is identified. Segmental and subsegmental pulmonary emboli are present within the lower lobe pulmonary arteries bilaterally. Liver: The contrast-enhanced liver is enlarged, measuring 22.5 cm in length. There is no intrahepatic biliary ductal dilatation. There are numerous (greater than 30) low-attenuation lesions seen throughout the liver. The largest is in the dome of the right lobe measuring approximately 4 cm. Hepatic and portal vasculature: Hepatic arterial anatomy is conventional. The hepatic veins, portal veins, superior mesenteric vein, and splenic vein are patent. Gallbladder: Unremarkable. Spleen: Normal in size and attenuation. Pancreas: The pancreas is moderately atrophic. The duct is normal in caliber. There is approximately 2.0 cm region of questionable indistinctness within the uncinate process on axial image #187. A small pancreatic lesion would be possible exclude. Adrenal glands: Unremarkable. Kidneys: There is a punctate nonobstructing calculus seen in each kidney on the unenhanced series. The contrast enhanced kidneys demonstrate cortical atrophy and are without hydronephrosis. The kidneys enhance symmetrically. A 2.5 cm cyst is identified in the upper pole the left kidney. Abdominal vasculature: The abdominal aorta is normal in course and caliber noting mild to moderate atherosclerotic calcification. Bowel: Visualized portions of the small bowel and colon are normal in course and caliber. Diverticulosis is noted in the partially imaged colon. Peritoneum: There is no intraperitoneal free air or abdominal ascites. Lymphadenopathy: None. Skeletal structures: No lytic or blastic lesions are clearly seen. Soft tissues: Subcutaneous emphysema is noted along the right abdominal wall. IMPRESSION: 1. The liver is enlarged and infiltrated by numerous low-attenuation lesions. The appearance is consistent with diffuse/multifocal hepatic metastatic disease. 2. Segmental and subsegmental pulmonary emboli are seen in the lower lobes. Subpleural consolidation at the left lung base likely represents a pulmonary infarct. 3. There is questionable indistinctness/low attenuation within the uncinate process of the pancreas. This is of indeterminant significance and although not definitive, a pancreatic mass lesion is not excluded. ERCP would likely be required for further interrogation. 4. There is diverticulosis of the imaged colon without CT evidence of acute diverticulitis. 5. Punctate nonobstructing renal calculi. 6. Additional findings as above. CTA chest 02/13/17 IMPRESSION: 1. Numerous small bilateral pulmonary emboli, including a small embolus within the distal left pulmonary artery. 6.1 cm subpleural left lower lobe opacity suggestive of a pulmonary infarct. Findings discussed with Dr. Foley at time of dictation. 2. Innumerable hepatic lesions which are better depicted on the abdominal CT. The findings suggest extensive hepatic metastases. 3. Right chest wall and upper abdominal gas which is likely postprocedural. Trace upper mediastinal gas which may be related to recent chest tube. No pneumothorax. 4. Indeterminate 1.7 cm lucent left sixth rib lesion. Venous doppler - 02/13/17 IMPRESSION: No evidence of deep venous thrombus within the bilateral lower extremities. Consultations: General surgery GI Heme/Onc Pulm Anesthesia (Issac Morrison M.D.) Medication Reconciliation New Medications: Enoxaparin (Lovenox) 150 Mg/1 Ml Inj 150 MG SQ Q24H for 30 Days, #30 SYR Continued Medications: Albuterol (Ventolin Hfa) Aers 2 PUFFS INH Q4 PRN for Dyspepsia Arformoterol Tartrate (Brovana 15MCG/2ML Soln) Nebu 1 BID Ascorbic Acid (Vitamin C) 500 Mg Tab DAILY Cholecalciferol (Vitamin D3 400) 400 Unit Cap Cyanocobalamin (Vitamin B-12) 50 Mcg Tab Ferrous Sulfate (Iron) 28 Mg Tab 65 MG DAILY Fluticasone Propionate Hfa (Flovent Hfa 220MCG Inhaler) 220 Mcg/ Aer 3 PUFF INH BID, INH Hydrocodone W/ Homatropine (Hycodan 5/1.5MG 5 Ml) 1 Syp Syp 5 ML PO Q4H, ML Lisinopril (Zestril) 40 Mg Tab 40 MG PO DAILY, TAB Montelukast Sodium (Singulair) 10 Mg Tab 10 MG PO DAILY, TAB Multiple Vitamins W/ Minerals (Centrum) 1 Tab Tab DAILY Simvastatin (Simvastatin) 20 Mg Tab HS Discontinued Medications: Aspirin (Aspirin 81) 81 Mg Tab DAILY Discharge Exam Review of Systems: Constitutional: No fever Respiratory: + cough (from throat irritation post EUS), No shortness of breath Cardiovascular: No chest pain Abdomen: No pain, No nausea, No vomiting, No diarrhea, No constipation Genitourinary - Male: No dysuria Neurologic: No problem reported Physical Exam: General Appearance: no apparent distress, + pertinent finding (no pallor ) Eyes: normal inspection, sclerae normal Respiratory/Chest: lungs clear, no respiratory distress, + decreased breath sounds (bilateral lung bases) Cardiovascular: regular rate, rhythm, no edema Abdomen / GI: normal bowel sounds, + tenderness (RUQ and epigastric tenderness to palpation) Extremities: normal inspection, no calf tenderness, no pedal edema Neurologic/Psychiatric: alert, oriented x 3 Skin: warm/dry (Issac Morrison M.D.) Hospital Course Mr. 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 Found to have PE based on CTA in the setting of recent hospitalization and malignancy diagnosis. Pulmonary embolism: Risk factors included malignancy given multiple liver metastatic lesions and [place] [id number] chest revealed numerous small bilateral pulmonary emboli, including a small embolus within the distal left pulmonary artery and a 6.1 cm subpleural left lower lobe opacity suggestive of a pulmonary infarct. Venous doppler ruled out bilateral DVTs. He was started on IV heparin with bolus which was transitioned to Lovenox 150mg/ 1ml Q24H upon discharge. He continued to sat well on RA during his hospitalization and clinically improved. He denied any sob or chest pain at discharge. Pt prescribed Lovenox (Enoxaparin) 150mg/1ml injections every 24hrs to be injected at approximately the same time every day (can move forward by 30 minutes each day to give later during the day if he prefers) -Prescription sent to [facility] ([address] [place] [address]) as they had a 13 day supply. [facility] in [place] did not have any at the moment but could order the remaining dose for him on Saturday (02/18/17) -Pt encouraged to avoid taking any non-steroidal anti-inflammatory medications such as ibuprofen while on the Lovenox to avoid irritating GI tract Hepatic metastases likely from colonic cancer: CT abdomen and pelvis revealed numerous hepatic lesions concerning for metastases initially believed to be from a pancreatic mass lesion noted on CT abdomen and pelvis within the uncinate process of the pancreas vs. colon cancer (Colonoscopy 2012 - removed at least 1 polyp).Also found to have an indeterminate 1.7 cm lucent left sixth rib lesion likely rib metastases on CT. General surgery consulted for surgical liver biopsy per pt preference given adverse event with previous needle guided biopsy but determined risks outweigh benefits given PE and recent pneumothorax per Dr. Guillermo. Hematology/oncology consulted and recommended seeing a liver surgical virtual reality specialist at [facility] who was willing to see him outpatient Sat or (02/18-02/19) and possibly perform a surgical liver biopsy. Gastroenterology consulted for evaluation of the pancreatic mass and recommended EUS for pancreatic mass and likely liver lesion biopsy if anesthesia comfortable with propofol only for sedation given recent pneumothorax and risk for barotrauma with ET intubation. We had an extensive discussion with patient and his , hematology/oncology, general surgery, gastroenterology and pulmonology and discussed the multitude of options available. The patient decided to go with EUS. EUS was performed on and found a normal esophagus, stomach, duodenum and CBD with multiple metastatic lesions on liver, FNA of liver lesion was obtained (pathology results pending) but fortunately no pancreatic head/body pathology or mass was found. GI recommended a colonoscopy on an outpatient basis. Patient also had transaminitis likely secondary to hepatic lesions. Patient was instructed to: -Follow up with Dr. Benavides for biopsy results and potential colonoscopy -Follow up with Dr. Rivera, oncologist for metastatic liver lesion and further treatment -Follow up with primary care doctor within a week COPD: Continued home medications: Brovana, Proventil Hypertension: Continued home medications: losartan and amlodipine GERD: Continued home medication: famotidine DVT prophylaxis: IV heparin Full code Total Time Spent: Greater than 30 minutes This includes examination of the patient, discharge planning, medication reconciliation, and communication with other providers. (Issac Morrison M.D.) Resident Physician Supervision Note: I interviewed and examined the patient. Discussed with Dr. Morrison and agree with findings and plan as documented in the note. Any exceptions or clarifications are listed here: hepatic mets etiology yet to be determined; most likely common etiology would be colon cancer but pathology pending Documented By: Charles Estrada feeling ok. wants to go home, feels up to going home. ~1hr discussion on -f/u on cancer, pathology, heme/onc, GI -PE etiology, f/u and treatment; how to time lovenox, etc -pain control (meloxicam prn but try to use sparingly for risk of PUD w frequent use) -answered all questions to the best of my ability and to their appreciation vitals noted nad breathing unlabored no pallor or icterus metastatic cancer - biopsies noted to have adequate tissue, pancreatic lesion seen on CT not at all seen on EUS -await path -oncology f/u next week -GI f/u - may need repeat colo PE -due to metastatic CA as hypercoagulable state -lovenox 1.5mg/kg SQ daily explained in depth, R1 called pharmacies to ensure that they had syringes and informed pt stable for home Total Time Spent: Greater than 30 minutes (Charles Estrada D.O.) Discharge Instructions Please refer to the electronic Patient Visit Report (Discharge Instructions) for additional information. (sIsac Morrison M.D.) Additional Copies To Reggie Rivera D.O.; Cheko Wilder M.D.; Alvaro Benavides M.D.
[2017-03-04] MEDS ORDERED: PLMINS NEB (13:03)
[2017-03-04] MEDS ORDERED: CHOL1000 PO (13:03)
[2017-03-04] MEDS ORDERED: LOSA50TA6 PO (13:05)
[2017-03-04] MEDS ORDERED: AMLO2.5T PO (13:05)
[2017-03-04] MEDS ORDERED: LORA-741 PO (13:09)
[2017-03-04] MEDS ORDERED: CITA20TA9 PO (13:09)
[2017-03-04] MEDS ORDERED: LOVENOX INJ (13:09)
[2017-03-04] MEDS ORDERED: PANT40TA PO (13:09)
[2017-03-04] MEDS ORDERED: OMEG10007 PO (13:09)
[2017-03-04] MEDS ORDERED: MELO7.5T5 PO (13:10)
[2017-03-04] MEDS ORDERED: ARFO15NE INH (13:10)
[2017-03-05] MEDS ORDERED: OXYC1TAB3 PO (08:36)
== END 2017-02-16 16:31 | disposition home or self-care (01) | DRG 176 ==
LOC: C.CTS 15:34 → C.4E 18:20
PROVIDERS: ADMIT Family Medicine; ATTEND Family Medicine
PROC: 0F904ZX Drainage of Liver, Percutaneous Endoscopic Approach, Diagnostic (ICD-10-PCS; principal; 2017-02-15 10:00)
DX: I26.99 Other pulmonary embolism without acute cor pulmonale (principal); C78.7 Secondary malignant neoplasm of liver and intrahepatic bile duct; C79.51 Secondary malignant neoplasm of bone; C18.9 Malignant neoplasm of colon, unspecified; J44.9 Chronic obstructive pulmonary disease, unspecified; I10 Essential (primary) hypertension; K21.9 Gastro-esophageal reflux disease without esophagitis; R74.0 Nonspecific elevation of levels of transaminase and lactic acid dehydrogenase [LDH]; F17.200 Nicotine dependence, unspecified, uncomplicated; Z79.82 Long term (current) use of aspirin; Z79.899 Other long term (current) drug therapy; Z80.6 Family history of leukemia

== ENCOUNTER → 2017-03-05 | Day surgery (SDC) | payer OTHER, MEDICARE ==
[2017-03-04 13:11] VITALS: BMI 32.0
[~2017-03-05] VITALS: Ht 172.7 cm; Wt 96.4 kg
[~2017-03-05] MED LIST changes: +AMLO2.5T PO; +ARFO15NE INH; -ASPI-435; +ATROPINE SULFATE 0.1 MG/ML 5ML SYR IV PRN; -BRVIN; +BUPIVACAINE/EPINEPHRINE 0.5% MPF 1:200,000 30 ML VIAL ONE; +CEFAZOLIN IV 2,000 MG/60 ML D5W IV ONE; +CHOL1000 PO; -CHOL400C; +CITA20TA9 PO; +EpHEDrine SULFATE INJ 50 MG/ML AMP IV PRN; +FENTANYL CITRATE INJ 50 MCG/1 ML 2 ML VIAL IV PRN; +FENTANYL CITRATE INJ 50 MCG/1 ML 2 ML VIAL ONE; -FERR28TA2; +FLUMAZENIL 0.1 MG/1 ML 10 ML VIAL IV PRN; -FLUT220A INH; +HEPARIN SOD (PORCINE) 1000 UNIT/ML 10 ML VIAL ONE; +HYDROCODONE/ACETAMOPHEN 5/325MG TAB PO PRN; +HYDROmorphone INJ 2 MG/ML SYR/VIAL IV PRN; +LABETALOL HCL IV 5 MG/ML 20ML IV PRN; +LACTATED RINGER'S 1000ML 1,000 ML IV SCH; +LIDOCAINE HCL 2% 2 ML VIAL (20MG/ML) ONE; -LISI40TA PO; +LORA-741 PO; +LOSA50TA6 PO; +LOVENOX INJ; +LVNIS150 SQ; +MELO7.5T5 PO; +MEPERIDINE HCL 25 MG/ML CARP IV PRN; +MIDAZOLAM HCL 1 MG/ML 2ML VIAL ONE; +MoRPHine SULFATE 2 MG/ML CARP IV PRN; +NALOXONE HCL 0.4 MG/1 ML VIAL/CARP IV PRN; +NURSING VERBAL MED ORDER ONE; +OMEG10007 PO; +ONDANSETRON INJ 2 MG/ML 2 ML VIAL IV PRN; +ONDANSETRON INJ 2 MG/ML 2 ML VIAL ONE; +OXYC1TAB3 PO; +PANT40TA PO; +PHENYLEPHRINE 100MCG/ML 5ML SYR IV PRN; +PLMINS NEB; +PROPOFOL IV EMULSION 10 MG/ML 20 ML VIAL IV ONE
[2017-03-05 08:30] VITALS: BP 140/83; PULSE 77; TEMP 36.7; O2SAT 98; Ht 172.7 cm; Wt 96.4 kg
--- NOTE | 2017-03-05 09:31 | Discharge Instructions ---
Discharge Instructions Date of Service Mar 05, 2017. Visit Reason for Visit: Metastatic Pancreatic Cancer Discharge Discharge Diagnosis / Problem: mediport placement Discharge Goals Goal(s): Improve disease control Activity Recommendations Activity Limitations: as noted below Shower/Bathe: no limitations Anesthesia . Post Anesthesia Instructions: If you have had General Anesthesia or IV Sedation: * Do not drive today. * Resume driving when surgeon permits. * Do not make important decisions or sign legal documents today. * Call surgeon for: 1. Temperature elevations greater than 101 degrees F. 2. Uncontrollable pain. 3. Excessive bleeding. 4. Persistent nausea and vomiting. 5. Medication intolerance (nausea, vomiting or rash). * For nausea and vomiting use only clear liquids such as: tea, soda, bouillon until nausea subsides, then gradually increase diet as tolerated. * If you have any concerns or questions, call your surgeon's office. If physician is unavailable and it is an emergency, call 911 or go to the nearest emergency room. . Instructions / Follow-Up Instructions / Follow-Up Dr. Guillermo as planned, call [phone] for any questions Resume Lovenox Saturday evening Diet Recommendations Recommended Home Diet: no limitations Pending Studies Studies pending at discharge: no Medical Emergencies . Who to Call and When: Medical Emergencies: If at any time you feel your situation is an emergency, please call 911 immediately. . Non-Emergent Contact Non-Emergency issues call your: Surgeon Call Non-Emergent contact if: you have a fever, temperature is above 101.5, your pain is not controlled, wound has increased redness, you have any medication questions . . "Provider Documentation" section prepared by Yossi Massey. .
--- NOTE | 2017-03-05 09:41 | History & Physical Bridge Note ---
H&P Re-Evaluation Bridge Note: I have examined the patient, reviewed the History & Physical and in the interval since the performance of the History & Physical I have noted the following changes of clinical significance: No changes noted
--- NOTE | 2017-03-05 10:58 | [facility] Operative Report ---
Operative Report Operative Date Mar 05, 2017. Pre-Operative Diagnosis Pancreatic malignant neoplasm/need for IV access Post-Operative Diagnosis Pancreatic malignant neoplasm/need for IV access Procedure(s) Performed Insertion of Mediport into the Left Subclavian Vein Surgeon Dr. Guillermo Estimated Blood Loss 10 ML Findings normal appearing anatomy Specimens None per surgeon Anesthesia MAC/local Complication(s) None Disposition Recovery Room / PACU Description of Procedure After informed consent was obtained the patient was taken to the operating suite and placed in supine position. Left arm was tucked and the upper chest wall was sterilely prepped and draped in usual fashion. The patient was placed in a Trendelenburg position. We used Marcaine to inject the skin on the upper chest wall. I then made a horizontal incision with 15 blade scalpel and carried this down through the soft tissue using electrocautery. Blunt finger dissection was used to create a housing pocket for the port itself down on the fascia the pectoralis muscle. The 18-gauge finder needle was used to cannulate the left subclavian vein without much difficulty. Once we did this we passed a guidewire under fluoroscopy into the superior vena cava. I then removed the needle and again using fluoroscopy passed a vascular dilator with peel-away sheath over the guidewire. Next we cut the catheter to appropriate length connected to the Mediport and flushed the whole system with saline and heparin solution. We then placed it into the housing pocket. I removed the vascular dilator and advanced the catheter through the peel-away sheath. We then removed the sheath leaving the catheter behind. Again this was all done under fluoroscopy. The catheter appeared to be in the superior vena cava. It flushed easily and we were able to easily withdrawal dark venous blood without difficulty. We then secured the port itself to the muscle using 0 Ethibond with 3 point fixation. Irrigated the wound and close it in 2 layers using 3-0 Monocryl for deep layers and 3-0 Monocryl for the skin. Sterile dressing was applied. The patient was awaken and transferred recovery in stable condition I attest to the content of the Intraoperative Record and any orders documented therein. Any exceptions are noted below.
--- NOTE | 2017-03-05 10:59 | DIAGNOSTIC IMAGING REPORT ---
CHEST ONE VIEW PORTABLE CLINICAL HISTORY: port placement catheter position COMPARISON STUDY: No previous studies for comparison. FINDINGS: Central catheter within the superior vena cava. Lungs are clear. No evidence for infiltrate or pneumothorax. Diaphragms smooth. IMPRESSION: Central catheter within the superior vena cava. Lungs are clear. The above report was generated using voice recognition software. It may contain grammatical, syntax or spelling errors. Electronically signed by: Clark Weinstein M.D. 03/05/2017 10:58 AM Dictated Date/Time: 03/05/2017 10:57 AM
--- NOTE | 2017-03-05 11:13 | Anesthesiology Progress Note ---
Anesthesia Post Op Note Date & Time Mar 05, 2017 at 11:13 Vital Signs Pain Intensity: 0 Vital Signs Past 12 Hours Date Time Temp Pulse Resp B/P (MAP) Pulse Ox O2 Delivery O2 Flow Rate FiO2 03/05/17 10:55 77 16 109/76 94 Room Air 03/05/17 10:45 76 16 108/79 92 Room Air 03/05/17 10:38 36.2 78 16 114/83 94 Room Air 03/05/17 08:30 36.7 77 18 140/83 (102) 98 Room Air Notes Mental Status: alert / awake / arousable, participated in evaluation Pt Amnestic to Procedure: Yes Nausea / Vomiting: adequately controlled Pain: adequately controlled Airway Patency, RR, SpO2: stable & adequate BP & HR: stable & adequate Hydration State: stable & adequate Anesthetic Complications: no major complications apparent
[2017-03-05 11:15] VITALS: BP 117/76; PULSE 71; TEMP 37.3; O2SAT 95
[2017-03-05 11:44] VITALS: BP 114/72; PULSE 68; TEMP 37; O2SAT 95
== END | disposition home or self-care (01) ==
LOC: C.ACU 07:52
PROVIDERS: ATTEND Surgery
DX: C25.9 Malignant neoplasm of pancreas, unspecified (principal); J44.1 Chronic obstructive pulmonary disease with (acute) exacerbation; F41.9 Anxiety disorder, unspecified; K76.9 Liver disease, unspecified; K21.9 Gastro-esophageal reflux disease without esophagitis; I10 Essential (primary) hypertension; E78.5 Hyperlipidemia, unspecified; G47.33 Obstructive sleep apnea (adult) (pediatric); I45.10 Unspecified right bundle-branch block; E55.9 Vitamin D deficiency, unspecified; F17.290 Nicotine dependence, other tobacco product, uncomplicated; F17.200 Nicotine dependence, unspecified, uncomplicated; Z79.899 Other long term (current) drug therapy

== ENCOUNTER 2017-03-14 13:09 | Inpatient (IN) | payer OTHER, MEDICARE ==
[~2017-03-14] VITALS: Ht 172.7 cm; Wt 95.7 kg
[2017-03-14] VITALS (13 sets, daily range): BP systolic 99–131; BP diastolic 66–84; PULSE 67–77; TEMP 36.5–37.8; O2SAT 92–98; Ht 172.7 cm; Wt 95.7 kg
[~2017-03-14 13:09] MED LIST changes: -ATROPINE SULFATE 0.1 MG/ML 5ML SYR IV PRN; -BUPIVACAINE/EPINEPHRINE 0.5% MPF 1:200,000 30 ML VIAL ONE; -CEFAZOLIN IV 2,000 MG/60 ML D5W IV ONE; -EpHEDrine SULFATE INJ 50 MG/ML AMP IV PRN; -FENTANYL CITRATE INJ 50 MCG/1 ML 2 ML VIAL IV PRN; -FENTANYL CITRATE INJ 50 MCG/1 ML 2 ML VIAL ONE; -FLUMAZENIL 0.1 MG/1 ML 10 ML VIAL IV PRN; -HEPARIN SOD (PORCINE) 1000 UNIT/ML 10 ML VIAL ONE; -HYDROCODONE/ACETAMOPHEN 5/325MG TAB PO PRN; -HYDROmorphone INJ 2 MG/ML SYR/VIAL IV PRN; -LABETALOL HCL IV 5 MG/ML 20ML IV PRN; -LACTATED RINGER'S 1000ML 1,000 ML IV SCH; -LIDOCAINE HCL 2% 2 ML VIAL (20MG/ML) ONE; -LOVENOX INJ; -LVNIS150 SQ; -MEPERIDINE HCL 25 MG/ML CARP IV PRN; -MIDAZOLAM HCL 1 MG/ML 2ML VIAL ONE; -MoRPHine SULFATE 2 MG/ML CARP IV PRN; -NALOXONE HCL 0.4 MG/1 ML VIAL/CARP IV PRN; -NURSING VERBAL MED ORDER ONE; -ONDANSETRON INJ 2 MG/ML 2 ML VIAL IV PRN; -ONDANSETRON INJ 2 MG/ML 2 ML VIAL ONE; -PHENYLEPHRINE 100MCG/ML 5ML SYR IV PRN; -PROPOFOL IV EMULSION 10 MG/ML 20 ML VIAL IV ONE
[2017-03-14] MEDS ORDERED: LVNIS150 SQ ×2 (14:12→14:19)
[2017-03-14] MEDS ORDERED: MAGNESIUM HYDROXIDE SUSP 30 ML UDC PO PRN (14:15)
[2017-03-14] MEDS ORDERED: ACETAMINOPHEN 325 MG TAB PO PRN (14:15)
[2017-03-14] MEDS ORDERED: ONDANSETRON INJ 2 MG/ML 2 ML VIAL IV PRN (14:15)
[2017-03-14] MEDS ORDERED: PATIENT'S HEIGHT AND/OR WEIGHT NEEDED SCH (14:30)
[2017-03-14] MEDS ORDERED: HYDROCODONE/HOMATROPINE SYRUP 5MG/1.5MG 5ML UDP PO PRN (14:45)
[2017-03-14] MEDS ORDERED: MELOXICAM 7.5 MG TAB PO PRN (14:45)
[2017-03-14] MEDS ORDERED: ALBUTEROL HFA 8 GM INHALER INH PRN (14:45)
--- NOTE | 2017-03-14 15:07 | DIAGNOSTIC IMAGING REPORT ---
CHEST ONE VIEW PORTABLE CLINICAL HISTORY: Shortness of breath. COMPARISON STUDY: Chest CT February 13, 2017 and chest radiograph March 05, 2017 FINDINGS: A left subclavian [id number] is in place. There is no pneumothorax or pleural effusion. Lung volumes are diminished. Right basilar opacity suggests atelectasis. Patient is rotated which likely accounts for mediastinal widening. There is no evidence of pulmonary edema. IMPRESSION: 1. Diminished lung volumes with right basilar opacity suggestive of atelectasis. 2. Rotated study which likely accounts for apparent mediastinal widening. 2. No evidence of pulmonary edema. Electronically signed by: Geovanny Miranda M.D. 03/14/2017 3:06 PM Dictated Date/Time: 03/14/2017 3:04 PM
--- NOTE | 2017-03-14 15:15 | History and Physical ---
History & Physical Date & Time of Service: Mar 14, 2017 at 14:49 Chief Complaint: Hypotension Primary Care Physician: Cheko Wilder M.D. History of Present Illness Source: patient 66 y/o M who was a direct admission from Dr. Benavides earlier today for hypoTN noted in the office, reported by him as in the 70s systolic. Pt states he had his first round of chemo on Saturday and has been "wiped out" and lightheaded since that time. He has had no n/v and feels his appetite is "reasonable". He describes his lightheadedness as similar to "if I have had a few drinks". He has intermittent SOB with his COPD and this has been the case for 2-3 years. He has chest pain at times, but this has been ongoing since his recent dx of PE in early February. Pt denies fever, abd pain, c/d, LE pain or swelling. He has been urinating well without pain or other concerns. Pt's states that he looks much better now--he apparently appeared more jaundice in the office. Pt does report taking his AM HTN meds today. His last dose of lovenox was last night around 9pm. Past Medical/Surgical History HTN HALEIGH with CPAP Hyperlipidemia GERD COPD Recent dx of metastatic pancreatic cancer with first chemo on 03/11 Recent PE, on lovenox Family History Mother with melanoma Father with hx of IN and bypass, from leukemia MGF with CHF PGF with IN Social History Smoking Status: Former Smoker (cigars, quit 2011) Alcohol Use: socially (goes weeks to months without alcohol) Drug Use: none Marital Status: Housing status: lives with family Occupational Status: retired Immunizations History of Influenza Vaccine: Unknown History of Tetanus Vaccine?: Unknown History of Pneumococcal: Unknown History of Hepatitis B Vaccine: Unknown Multi-Drug Resistant Organisms History of MDRO: No Allergies Coded Allergies: Ciprofloxacin (Verified Allergy, Unknown, RASH, 03/05/17) PER IGOR IN [facility]S OFFICE 02/02/13 Mebendazole (Verified Allergy, Unknown, UNKNOWN, 03/05/17) PER IGOR IN [facility]S OFFICE 02/02/13 Home Medications Scheduled Amlodipine (Norvasc), 2.5 MG PO QAM Arformoterol Tartrate (Brovana), 15 MCG INH BID Ascorbic Acid (Vitamin C), 500 MG PO QAM Budesonide (Budesonide), 1 VIAL NEB BID Cholecalciferol (Vitamin D3), 1 TAB PO QAM Citalopram Hydrobromide (Celexa), 20 MG PO QPM Enoxaparin (Lovenox), SQ DAILY Enoxaparin (Lovenox), SQ DAILY Fish Oil ([place]-3), 1 CAP PO QAM Lorazepam (Ativan), 0.5 MG PO Q6H Losartan Potassium (Cozaar), 50 MG PO QAM Meloxicam (Mobic), 7.5-15 MG PO PRN Montelukast Sodium (Singulair), 10 MG PO QAM Multiple Vitamins W/ Minerals (Centrum), 1 TAB PO QAM Pantoprazole (Protonix), 40 MG PO QAM Simvastatin (Simvastatin), 20 MG PO QAM Scheduled PRN Albuterol (Ventolin Hfa), 2 PUFFS INH Q4 PRN for Dyspepsia Hydrocodone W/ Homatropine (Hycodan 5/1.5MG 5 Ml), 5 ML PO Q4H PRN for PRN Oxycodone Ir (Roxicodone Ir), 5 MG PO Q6H PRN for Pain Miscellaneous Medications Cyanocobalamin (Vitamin B-12) Review of Systems Pertinent positives and negatives reviewed in HPI--all others negative Physical Exam Vital Signs Date Time Temp Pulse Resp B/P (MAP) Pulse Ox O2 Delivery O2 Flow Rate FiO2 03/14/17 14:15 Room Air 03/14/17 14:05 36.9 67 14 102/66 (78) 97 Room Air General Appearance: no apparent distress, + obese Head: normocephalic, atraumatic Eyes: normal inspection, EOMI Respiratory/Chest: normal breath sounds, no respiratory distress Cardiovascular: regular rate, rhythm, no edema Abdomen/GI: non tender, soft Extremities/Musculoskelatal: no calf tenderness, no pedal edema Neurologic/Psych: alert, normal mood/affect (however is very fatigued), oriented x 3 Skin: warm/dry, + jaundice (mild) Impression Assessment and Plan 66 y/o M who was a direct admission for hypoTN and lightheadedness HypoTN/lightheadedness: uncertain etiology, new PE or related to PE less likely given ongoing lovenox use x1 month Possibly related to recent chemo vs dehydration vs infection CBC, CMP, trop, CXR, UA, blood cx pending Holding home HTN meds IVF Port placed 03/05 with site WNL Metastatic pancreatic ca: Based on recent EUS and path Pancreas noted and WNL on EUS but CA19-9 is markedly elevated LFTs pending Pt was in the office for a c/s with Dr. Benavides today for possible ERCP, he will see pt during admission and possibly for ERCP tomorrow if stable Last chemo 03/11, follows with Dr. Rivera Recent PE: ongoing lovenox use Last dose 03/13 HS making PE less likely for new sx HTN: holding home meds as above HALEIGH: home CPAP Hyperlipidemia: continue home meds Recent heart cath: 12/24 for SOB, neg Other: Full code "I'm not ready to be a DNR yet." Reg diet DVT proph pending further work-up Level of Care Telemetry Advanced Directives Existing Living Will: Yes Existing Power of Educational Programming Director: Yes Resuscitation Status FULL RESUSCITATION VTE Prophylaxis VTE Risk Assessment Done? Y/N: Yes Risk Level: Low
[2017-03-14] MEDS: SODIUM CHLORIDE 0.9% 1000ML 1,000 ML IV SCH (15:44)
[2017-03-14] MEDS: LORAZEPAM 0.5 MG TAB PO SCH ×2 (15:46→22:32)
[2017-03-14 15:50] LABS: HEMATOCRIT 24.4 % (42-52); MEAN CELL VOLUME 97.2 fL (80-100); MEAN CORPUSCULAR HEMOGLOBIN 30.3 pg (25-34); MEAN CORPUSCULAR HGB CONC 31.1 g/dl (32-36); MEAN PLATELET VOLUME 9.7 fL (7.4-10.4); PLATELET COUNT 275 K/uL (130-400); RED BLOOD COUNT 2.51 M/uL (4.7-6.1); WHITE BLOOD COUNT 12.95 K/uL (4.8-10.8)
[2017-03-14 15:59] LABS: ALB/GLOB RATIO 0.5 (0.9-2); ALKALINE PHOSPHATASE 847 U/L (45-117); ALT/SGPT 249 U/L (12-78); AST/SGOT 265 U/L (15-37); BLOOD UREA NITROGEN 38 mg/dl (7-18); BUN/CREATININE RATIO 31.7 (10-20); CALCIUM 7.6 mg/dl (8.5-10.1); CARBON DIOXIDE 25 mmol/L (21-32); CHLORIDE 106 mmol/L (98-107); GLUCOSE 84 mg/dl (70-99); POTASSIUM 4.3 mmol/L (3.5-5.1); SODIUM 139 mmol/L (136-145)
[2017-03-14 17:12] LABS: URINE APPEARANCE CLEAR (CLEAR); URINE COLOR DK YELLOW; URINE EPITHELIAL CELL AUTO 0-5 /lpf (0-5); URINE NITRITE NEG (NEG); URINE PH 5.5 (4.5-7.5); URINE SPECIFIC GRAVITY 1.018 (1.000-1.030); UROBILINOGEN POS (NEG); ZZUR CULT IF INDIC CLEAN CATCH NO
[2017-03-14 17:18] LABS: URINE BILIRUBIN 1+ (NEG)
[2017-03-14 17:22] LABS: MANUAL MICROSCOPIC REQUIRED? NO; REVIEW REQ? NO
[2017-03-14 17:22] LABS: INR 1.1 (0.9-1.1); PROTHROMBIN TIME (PATIENT) 12.3 SECONDS (9.0-12.0)
[2017-03-14] MEDS: HEPARIN IV LOW DOSE NO BOLUS SCH (17:49)
--- NOTE | 2017-03-14 18:17 | GASTROINTESTINAL CONSULTATION ---
DATE OF CONSULTATION: 03/14/2017 REASON FOR EVALUATION: Anemia with biliary blockage. HISTORY OF PRESENT ILLNESS: The patient is a 66-year-old, recently diagnosed with pancreatic cancer, widely metastatic to the liver. The patient started on chemotherapy 3 days ago and was seen in the office today by Dr. Benavides and was found to be very weak and hypotensive with a systolic blood pressure in the 70s. He was referred directly for admission and was found to have a hemoglobin of 7.6 on admission. Two units of red blood cells have been ordered. The patient has been feeling very weak with decreased appetite and somewhat lightheaded. He does appear to have partial biliary obstruction and Dr. Benavides's plan was to try to stent this partial obstruction to help open up his bile duct. PAST MEDICAL HISTORY: Remarkable for COPD, hypertension, sleep apnea, hyperlipidemia, esophageal reflux, and a history of pulmonary embolism, on Lovenox. MEDICATIONS: Per list. ALLERGIES: CIPRO AND MEBENDAZOLE. FAMILY HISTORY: Mother of melanoma. Father of leukemia. Maternal grandfather of CHF. Paternal grandfather of an [place]. SOCIAL HISTORY: The patient is . He is retired. Drinks alcohol rarely. Former cigar smoker, quitting in 2011. REVIEW OF SYSTEMS: Positive for weakness and poor concentration and some abdominal fullness. PHYSICAL EXAMINATION: GENERAL: The patient appears very depressed. No acute distress. VITAL SIGNS: Blood pressure currently is 102/66, pulse 67, temperature is 36.9, and room air saturations 97%. HEENT: Pharynx clear. ABDOMEN: Shows an appendectomy scar and an enlarged liver. The liver is about 2-3 cm below the right costal margin and relatively firm and tender. He does not appear to be overtly jaundiced given the lighting in the room at this time. IMPRESSION: The patient is anemic from an unclear etiology. He is getting 2 units of red blood cells overnight and he is being started on IV heparin. Plan on stopping heparin at noon tomorrow in anticipation of Dr. Benavides doing an ERCP later in the afternoon. We will also treat him with Mefoxin 1 gram IV prior to the ERCP as he is allergic to Cipro. He will be n.p.o. after midnight. Also order some Indocin by suppository to reduce the risk of post-ERCP pancreatitis. [facility]
[2017-03-14 19:09] LABS: PARTIAL THROMBOPLASTIN RATIO 1.1
[2017-03-14] MEDS: BUDESONIDE 0.5 MG/2 ML VIAL (PULMICORT) INH SCH (19:18)
[2017-03-14] MEDS: ARFORMOTEROL TART 15MCG/2ML VIAL INH SCH (19:18)
[2017-03-14] MEDS: HEPARIN 25,000 UNIT/500ML D5W 500 ML IV PRN (20:10)
[2017-03-14] MEDS: CITALOPRAM 20 MG TAB PO SCH (20:19)
[2017-03-14] MEDS: OXYCODONE HCL IR 5 MG TAB (IMMEDIATE RELEASE) PO PRN (20:20)
[2017-03-15] VITALS (19 sets, daily range): BP systolic 120–152; BP diastolic 74–94; PULSE 62–86; TEMP 36–37.6; O2SAT 90–99
[2017-03-15] MEDS: OXYCODONE HCL IR 5 MG TAB (IMMEDIATE RELEASE) PO PRN ×2 (01:56→08:30)
[2017-03-15 03:00] LABS: PARTIAL THROMBOPLASTIN RATIO 1.2
[2017-03-15] MEDS ORDERED: HEPARIN IV BOLUS 4,500 UNIT in SYRINGE 0 ML IV STA (03:33)
[2017-03-15] MEDS: HEPARIN 25,000 UNIT/500ML D5W 500 ML IV PRN (03:49)
[2017-03-15] MEDS: LORAZEPAM 0.5 MG TAB PO SCH ×3 (04:00→20:58)
[2017-03-15 06:11] LABS: HEMATOCRIT 26.2 % (42-52); MEAN CELL VOLUME 93.2 fL (80-100); MEAN CORPUSCULAR HEMOGLOBIN 30.2 pg (25-34); MEAN CORPUSCULAR HGB CONC 32.4 g/dl (32-36); MEAN PLATELET VOLUME 9.4 fL (7.4-10.4); PLATELET COUNT 241 K/uL (130-400); RED BLOOD COUNT 2.81 M/uL (4.7-6.1); WHITE BLOOD COUNT 10.74 K/uL (4.8-10.8)
[2017-03-15 06:24] LABS: PARTIAL THROMBOPLASTIN RATIO 1.9
[2017-03-15 06:45] LABS: ALB/GLOB RATIO 0.4 (0.9-2); BUN/CREATININE RATIO 26.8 (10-20); CALCIUM 7.5 mg/dl (8.5-10.1); CREATININE 1.1 mg/dl (0.60-1.40); POTASSIUM 4.2 mmol/L (3.5-5.1)
[2017-03-15] MEDS: BUDESONIDE 0.5 MG/2 ML VIAL (PULMICORT) INH SCH ×2 (06:59→19:16)
[2017-03-15] MEDS: ARFORMOTEROL TART 15MCG/2ML VIAL INH SCH ×2 (07:00→19:16)
[2017-03-15] MEDS: CEROVITE ADV FORMULA TAB PO SCH (08:23)
[2017-03-15] MEDS: CHOLECALCIFEROL 1000 INTER.UNIT TAB PO SCH (08:23)
[2017-03-15] MEDS: SIMVASTATIN 20 MG TAB PO SCH (08:23)
[2017-03-15] MEDS: MONTELUKAST SOD 10 MG TAB PO SCH (08:23)
[2017-03-15] MEDS: ASCORBIC ACID 500 MG TAB PO SCH (08:24)
[2017-03-15] MEDS: CYANOCOBALAMIN 100 MCG TAB (VIT B-12) PO SCH (08:24)
[2017-03-15] MEDS: PANTOprazole SOD 40 MG TAB PO SCH (08:24)
--- NOTE | 2017-03-15 08:41 | Oncology Consultation ---
Oncology/Heme Consultation Date of Consultation: Mar 15, 2017. Attending Physician: Deja Abrams DO Reason for Consultation: Metastatic pancreatic cancer Jaundice Anemia History of Present Illness Mr. Ponce is a 66 year old man with recently diagnosed pancreatic cancer with liver metastases. He has a partial biliary obstruction, noted on MRCP. He started chemotherapy at [facility] on Saturday. He does not recall the names of the drugs, but from his description, it sounds like Gemcitabine and Abraxane. He felt very weak yesterday and was noted to be hypotensive during an outpatient visit with Dr. Benavides. He was directly admitted, where he was found to be markedly anemic (Hgb 7.5 down from 9-10 in mid-February). He also had dramatic elevations in his hepatic enzymes and bilirubin. He has some pain in his right upper quadrant which is somewhat worse than before, but not dramatically. He denies any fevers, chills, or sweats. He also denies any evidence of bleeding or other stool changes. He is scheduled for an ERCP this morning. Social History Smoking Status: Former Smoker (cigars, quit 2011) Alcohol Use: socially (goes weeks to months without alcohol) Drug Use: none Marital Status: Occupation Status: retired Allergies Coded Allergies: Ciprofloxacin (Verified Allergy, Unknown, RASH, 03/05/17) PER [facility]OR IN [facility]S OFFICE 02/02/13 Mebendazole (Verified Allergy, Unknown, UNKNOWN, 03/05/17) PER IGOR IN [facility]S OFFICE 02/02/13 Home Medications Scheduled Amlodipine (Norvasc), 2.5 MG PO QAM Arformoterol Tartrate (Brovana), 15 MCG INH BID Ascorbic Acid (Vitamin C), 500 MG PO QAM Budesonide (Budesonide), 1 VIAL NEB BID Cholecalciferol (Vitamin D3), 1 TAB PO QAM Citalopram Hydrobromide (Celexa), 20 MG PO QPM Enoxaparin (Lovenox), SQ DAILY Enoxaparin (Lovenox), SQ DAILY Fish Oil ([place]-3), 1 CAP PO QAM Lorazepam (Ativan), 0.5 MG PO Q6H Losartan Potassium (Cozaar), 50 MG PO QAM Meloxicam (Mobic), 7.5-15 MG PO PRN Montelukast Sodium (Singulair), 10 MG PO QAM Multiple Vitamins W/ Minerals (Centrum), 1 TAB PO QAM Pantoprazole (Protonix), 40 MG PO QAM Simvastatin (Simvastatin), 20 MG PO QAM Scheduled PRN Albuterol (Ventolin Hfa), 2 PUFFS INH Q4 PRN for Dyspepsia Hydrocodone W/ Homatropine (Hycodan 5/1.5MG 5 Ml), 5 ML PO Q4H PRN for PRN Oxycodone Ir (Roxicodone Ir), 5 MG PO Q6H PRN for Pain Miscellaneous Medications Cyanocobalamin (Vitamin B-12) Current Inpatient Medications Current Inpatient Medications Medications (Trade) Dose Ordered Sig/Pedro Pablo Route Start Time Stop Time Status Last Admin Dose Admin Acetaminophen (Tylenol Tab) 650 mg Q4H PRN PO 03/14/17 14:15 04/13/17 14:14 Magnesium Hydroxide (Milk Of Magnesia Susp) 30 ml Q12H PRN PO 03/14/17 14:15 04/13/17 14:14 Ondansetron HCl (Zofran Inj) 4 mg Q6H PRN IV 03/14/17 14:15 04/13/17 14:14 03/15/17 01:56 4 MG Sodium Chloride 1,000 ml @ 80 mls/hr [id number] IV 03/14/17 14:45 04/13/17 14:44 03/14/17 15:44 80 MLS/HR Albuterol (Ventolin Hfa Inhaler) 2 puffs Q4 PRN INH 03/14/17 14:45 04/13/17 14:44 Arformoterol Tartrate (Brovana 15MCG/ 2ML Neb Soln) 15 mcg BIDR INH 03/14/17 20:00 04/13/17 19:59 03/15/17 07:00 15 MCG Ascorbic Acid (Vitamin C Tab) 500 mg QAM PO 03/15/17 09:00 04/14/17 08:59 Budesonide (Pulmicort Respules 0.5MG/ 2ML Neb Soln) 0.5 mg BIDR INH 03/14/17 20:00 04/13/17 19:59 03/15/17 06:59 0.5 MG Cholecalciferol (Vitamin D Tab) 1,000 inter.unit QAM PO 03/15/17 09:00 04/14/17 08:59 Citalopram Hydrobromide (celeXA TAB) 20 mg QPM PO 03/14/17 21:00 04/13/17 20:59 03/14/17 20:19 20 MG Hydrocodone Bit/ Homatropine Methylb (Hycodan Syrup) 5 ml Q4H PRN PO 03/14/17 14:45 03/28/17 14:44 Lorazepam (Ativan Tab) 0.5 mg Q6H PO 03/14/17 16:00 04/13/17 15:59 03/14/17 22:32 0.5 MG Meloxicam (Mobic Tab) 7.5 mg DAILY PRN PO 03/14/17 14:45 04/13/17 14:44 Montelukast Sodium (Singulair Tab) 10 mg QAM PO 03/15/17 09:00 04/14/17 08:59 Multivitamins/ Minerals (Multivitamin W/ Minerals Tab) 1 tab QAM PO 03/15/17 09:00 04/14/17 08:59 Oxycodone HCl (Roxicodone Immediate Rel Tab) 5 mg Q6H PRN PO 03/14/17 14:45 03/28/17 14:44 03/15/17 01:56 5 MG Pantoprazole Sodium (Protonix Tab) 40 mg QAM PO 03/15/17 09:00 04/14/17 08:59 Simvastatin (Zocor Tab) 20 mg QAM PO 03/15/17 09:00 04/14/17 08:59 Cyanocobalamin (Vitamin B-12 Tab) 50 mcg QAM PO 03/15/17 09:00 04/14/17 08:59 Heparin Sodium (Porcine) (Heparin 100 Unit/ml 5ml Flush) 5 ml PRN PRN IV 03/14/17 15:30 04/13/17 15:29 03/14/17 16:08 5 ML Cefoxitin Sodium 1000 mg/Dextrose 60 ml @ 100 mls/hr ONE ONCE IV 03/15/17 15:00 03/15/17 15:35 Indomethacin (Indocin Suppository) 100 mg ONE PA 03/15/17 18:00 03/15/17 23:59 Heparin Sodium/ Dextrose 500 ml @ 22 mls/hr [id number] PRN IV 03/14/17 18:00 04/13/17 17:59 Future Hold 03/15/17 03:49 22 MLS/HR Miscellaneous (Stop Order) 1 ea TODAY@1200 ONCE N/A 03/15/17 12:00 03/15/17 12:01 Review of Systems Constitutional: + fatigue, No fever, No chills, No sweats ENT: No unusual epistaxis Respiratory: No cough, No shortness of breath, No hemoptysis Cardiovascular: No chest pain Abdomen: + pain, No nausea, No vomiting, No GI bleeding Musculoskeletal: No joint pain, No muscle pain Genitourinary - Male: No hematuria, No dysuria Neurologic: No weakness, No numbness/tingling Hematologic / Lymphatic: No abnormal bleeding/bruising Physical Exam Date Time Temp Pulse Resp B/P (MAP) Pulse Ox O2 Delivery O2 Flow Rate FiO2 03/15/17 07:10 37.0 69 20 147/88 (107) 97 Room Air 03/15/17 07:03 66 14 97 Room Air 03/15/17 04:00 Room Air 03/15/17 03:55 36.8 74 20 148/82 (104) 94 Room Air 03/15/17 01:30 37.3 84 16 135/81 96 03/15/17 01:00 37.6 86 18 143/85 94 03/15/17 00:30 37.4 76 142/84 95 03/15/17 00:00 Room Air 03/15/17 00:00 37.5 74 16 142/88 94 03/14/17 23:30 37.7 75 16 131/84 96 2.0 03/14/17 23:14 37.4 74 16 131/84 98 2.0 03/14/17 22:00 37.7 73 18 122/77 98 2.0 03/14/17 21:30 37.8 76 16 114/75 92 03/14/17 21:00 37.8 74 18 116/76 93 03/14/17 20:45 37.8 74 18 115/75 93 03/14/17 20:30 37.6 77 18 111/72 97 03/14/17 20:13 37.1 69 18 115/74 95 03/14/17 20:00 Room Air 03/14/17 19:54 36.7 74 16 112/69 96 03/14/17 19:29 76 14 97 Room Air 03/14/17 16:19 95 Room Air 03/14/17 15:56 36.5 68 18 99/66 (77) 95 Room Air 03/14/17 14:15 Room Air 03/14/17 14:05 36.9 67 14 102/66 (78) 97 Room Air General Appearance: WD/WN, no apparent distress Eyes: EOMI ENT: pharynx normal Respiratory/Chest: lungs clear Cardiovascular: regular rate, rhythm Abdomen/GI: normal bowel sounds, soft, + tenderness (mild RUQ tenderness) Back: normal inspection Extremities/Musculoskelatal: no pedal edema Neurologic/Psych: no motor/sensory deficits (grossly), alert, oriented x 3 Skin: warm/dry, no rash Laboratory Results Last 24 Hours Test 03/14/17 15:10 03/14/17 16:45 03/14/17 16:50 03/15/17 02:34 White Blood Count 12.95 K/uL Red Blood Count 2.51 M/uL Hemoglobin 7.6 g/dL Hematocrit 24.4 % Mean Corpuscular Volume 97.2 fL Mean Corpuscular Hemoglobin 30.3 pg Mean Corpuscular Hemoglobin Concent 31.1 g/dl RDW Standard Deviation 61.3 fL RDW Coefficient of Variation 17.3 % Platelet Count 275 K/uL Mean Platelet Volume 9.7 fL Sodium Level 139 mmol/L Potassium Level 4.3 mmol/L Chloride Level 106 mmol/L Carbon Dioxide Level 25 mmol/L Anion Gap 8.0 mmol/L Blood Urea Nitrogen 38 mg/dl Creatinine 1.20 mg/dl Est Creatinine Clear Calc Drug Dose 67.2 ml/min Estimated GFR () 71.6 Estimated GFR (Non- 61.8 BUN/Creatinine Ratio 31.7 Random Glucose 84 mg/dl Calcium Level 7.6 mg/dl Total Bilirubin 4.8 mg/dl Aspartate Amino Transf (AST/SGOT) 265 U/L Alanine Aminotransferase (ALT/SGPT) 249 U/L Alkaline Phosphatase 847 U/L Troponin I < 0.015 ng/ml Total Protein 5.7 gm/dl Albumin 1.8 gm/dl Globulin 3.9 gm/dl Albumin/Globulin Ratio 0.5 Prothrombin Time 12.3 SECONDS Prothromb Time International Ratio 1.1 Activated Partial Thromboplast Time 27.5 SECONDS 31.8 SECONDS Partial Thromboplastin Ratio 1.1 1.2 Urine Color DK YELLOW Urine Appearance CLEAR Urine pH 5.5 Urine Specific [place] 1.018 Urine Protein NEG Urine Glucose (UA) NEG Urine Ketones NEG Urine Occult Blood NEG Urine Nitrite NEG Urine Bilirubin 1+ Urine Urobilinogen POS Urine Leukocyte Esterase NEG Urine WBC (Auto) 1-5 /hpf Urine RBC (Auto) 0-4 /hpf Urine Hyaline Casts (Auto) 0 /lpf Urine Epithelial Cells (Auto) 0-5 /lpf Urine Bacteria (Auto) NEG Test 03/15/17 05:44 White Blood Count 10.74 K/uL Red Blood Count 2.81 M/uL Hemoglobin 8.5 g/dL Hematocrit 26.2 % Mean Corpuscular Volume 93.2 fL Mean Corpuscular Hemoglobin 30.2 pg Mean Corpuscular Hemoglobin Concent 32.4 g/dl RDW Standard Deviation 61.5 fL RDW Coefficient of Variation 18.0 % Platelet Count 241 K/uL Mean Platelet Volume 9.4 fL Activated Partial Thromboplast Time 49.8 SECONDS Partial Thromboplastin Ratio 1.9 Sodium Level 138 mmol/L Potassium Level 4.2 mmol/L Chloride Level 105 mmol/L Carbon Dioxide Level 24 mmol/L Anion Gap 9.0 mmol/L Blood Urea Nitrogen 29 mg/dl Creatinine 1.10 mg/dl Est Creatinine Clear Calc Drug Dose 72.9 ml/min Estimated GFR () 79.5 Estimated GFR (Non- 68.6 BUN/Creatinine Ratio 26.8 Random Glucose 109 mg/dl Calcium Level 7.5 mg/dl Total Bilirubin 8.6 mg/dl Aspartate Amino Transf (AST/SGOT) 285 U/L Alanine Aminotransferase (ALT/SGPT) 256 U/L Alkaline Phosphatase 803 U/L Total Protein 5.5 gm/dl Albumin 1.7 gm/dl Globulin 3.8 gm/dl Albumin/Globulin Ratio 0.4 Assessment & Plan Mr. Ponce recently started chemotherapy for metastatic pancreatic cancer. He is admitted now with anemia and hyperbilirubinemia. He has known biliary obstruction and it is possible his LFT abnormalities are related to acute worsening of this issue. He is scheduled for ERCP, which would be both diagnostic and therapeutic for this. With regard to the anemia, I would not necessarily expect it to be related to chemotherapy, as he was only treated a few days ago. He may be losing microscopic blood in his GI tract and I would check an FOBT. I also would check an LDH and haptoglobin to evaluate for hemolysis, given anemia and hyperbilirubinemia. Gemcitabine is known to rarely cause a microangiopathic hemolytic anemia, similar to HUS. His platelets are normal, however, making this diagnosis less likely. We will continue to follow.
[2017-03-15 10:25] LABS: PARTIAL THROMBOPLASTIN RATIO 1.5
[2017-03-15] MEDS: SODIUM CHLORIDE 0.9% 1000ML 1,000 ML IV SCH ×2 (11:12→20:29)
[2017-03-15] MEDS ORDERED: CEFOXITIN IV 1,000 MG in DEXTROSE 5% 50ML 50 ML IV ONE (15:00)
--- NOTE | 2017-03-15 16:10 | History & Physical Bridge Note ---
H&P Re-Evaluation Bridge Note: I have examined the patient, reviewed the History & Physical and in the interval since the performance of the History & Physical I have noted the following changes of clinical significance: No changes noted AAOx3 fatigued lungs CAT Heart Nl s1s2 accompanied by in PACU Abd soft , mild tender RUQ no rebound; + BS - CCE Consent ontained for ERCP and stent placement, risks benefits alternatives d/w pt at office yesterday and today Agrees to proceed. armani
[2017-03-15] MEDS ORDERED: MIDAZOLAM HCL 1 MG/ML 2ML VIAL ONE (16:19)
[2017-03-15] MEDS ORDERED: PROPOFOL IV EMULSION 10 MG/ML 20 ML VIAL IV ONE (16:19)
[2017-03-15] MEDS ORDERED: LIDOCAINE 2% 20 MG/ML 5ML SYR ONE (16:19)
[2017-03-15] MEDS ORDERED: ROCURONIUM BROMIDE 10 MG/ML 5 ML VIAL IV ONE (16:19)
[2017-03-15] MEDS ORDERED: FENTANYL CITRATE INJ 50 MCG/1 ML 2 ML VIAL ONE (16:20)
[2017-03-15] MEDS ORDERED: ONDANSETRON INJ 2 MG/ML 2 ML VIAL IV PRN (16:30)
[2017-03-15] MEDS ORDERED: MEPERIDINE HCL 25 MG/ML CARP IV PRN (16:30)
[2017-03-15] MEDS ORDERED: LABETALOL HCL IV 5 MG/ML 20ML IV PRN (16:30)
[2017-03-15] MEDS ORDERED: ATROPINE SULFATE 0.1 MG/ML 5ML SYR IV PRN (16:30)
[2017-03-15] MEDS ORDERED: FENTANYL CITRATE INJ 50 MCG/1 ML 2 ML VIAL IV PRN (16:30)
[2017-03-15] MEDS ORDERED: PHENYLEPHRINE 100MCG/ML 5ML SYR IV PRN (16:30)
[2017-03-15] MEDS ORDERED: FLUMAZENIL 0.1 MG/1 ML 10 ML VIAL IV PRN (16:30)
[2017-03-15] MEDS ORDERED: EpHEDrine SULFATE INJ 50 MG/ML AMP IV PRN (16:30)
[2017-03-15] MEDS ORDERED: HYDROmorphone INJ 2 MG/ML SYR/VIAL IV PRN (16:30)
[2017-03-15] MEDS ORDERED: NALOXONE HCL 0.4 MG/1 ML VIAL/CARP IV PRN (16:30)
[2017-03-15] MEDS ORDERED: SUCCINYLCHOLINE 100MG/5ML SYR IV ONE (16:58)
[2017-03-15] MEDS ORDERED: ONDANSETRON INJ 2 MG/ML 2 ML VIAL ONE (16:58)
[2017-03-15] MEDS ORDERED: DEXAMETHASONE SOD INJ 4 MG/ML VIAL ONE (16:58)
[2017-03-15] MEDS ORDERED: PHENYLEPHRINE 100MCG/ML 5ML SYR ONE (17:01)
--- NOTE | 2017-03-15 17:55 | Progress Note ---
Subjective Date of Service: Mar 15, 2017. Subjective sleeping when visited, then later at ERCP chart reviewed sleeping comfortably Review of Systems not obtained Objective Vital Signs Date Time Temp Pulse Resp B/P (MAP) Pulse Ox O2 Delivery O2 Flow Rate FiO2 03/15/17 15:56 37.2 68 18 137/86 (103) 97 Room Air 03/15/17 15:21 36.8 66 20 120/74 (89) 96 03/15/17 12:00 CPAP 03/15/17 11:50 80 96 03/15/17 11:12 36.5 62 20 132/84 (100) 95 Room Air 03/15/17 08:00 Room Air 03/15/17 07:10 37.0 69 20 147/88 (107) 97 Room Air 03/15/17 07:03 66 14 97 Room Air 03/15/17 04:00 Room Air 03/15/17 03:55 36.8 74 20 148/82 (104) 94 Room Air 03/15/17 01:30 37.3 84 16 135/81 96 03/15/17 01:00 37.6 86 18 143/85 94 03/15/17 00:30 37.4 76 142/84 95 03/15/17 00:00 Room Air 03/15/17 00:00 37.5 74 16 142/88 94 03/14/17 23:30 37.7 75 16 131/84 96 2.0 03/14/17 23:14 37.4 74 16 131/84 98 2.0 03/14/17 22:00 37.7 73 18 122/77 98 2.0 03/14/17 21:30 37.8 76 16 114/75 92 03/14/17 21:00 37.8 74 18 116/76 93 03/14/17 20:45 37.8 74 18 115/75 93 03/14/17 20:30 37.6 77 18 111/72 97 03/14/17 20:13 37.1 69 18 115/74 95 03/14/17 20:00 Room Air 03/14/17 19:54 36.7 74 16 112/69 96 03/14/17 19:29 76 14 97 Room Air Physical Exam General Appearance: no apparent distress Respiratory/Chest: no respiratory distress, no accessory muscle use Laboratory Results Last 24 Hours Test 03/15/17 02:34 03/15/17 05:44 03/15/17 10:03 Activated Partial Thromboplast Time 31.8 SECONDS 49.8 SECONDS 37.8 SECONDS Partial Thromboplastin Ratio 1.2 1.9 1.5 White Blood Count 10.74 K/uL Red Blood Count 2.81 M/uL Hemoglobin 8.5 g/dL Hematocrit 26.2 % Mean Corpuscular Volume 93.2 fL Mean Corpuscular Hemoglobin 30.2 pg Mean Corpuscular Hemoglobin Concent 32.4 g/dl RDW Standard Deviation 61.5 fL RDW Coefficient of Variation 18.0 % Platelet Count 241 K/uL Mean Platelet Volume 9.4 fL Sodium Level 138 mmol/L Potassium Level 4.2 mmol/L Chloride Level 105 mmol/L Carbon Dioxide Level 24 mmol/L Anion Gap 9.0 mmol/L Blood Urea Nitrogen 29 mg/dl Creatinine 1.10 mg/dl Est Creatinine Clear Calc Drug Dose 72.9 ml/min Estimated GFR () 79.5 Estimated GFR (Non- 68.6 BUN/Creatinine Ratio 26.8 Random Glucose 109 mg/dl Calcium Level 7.5 mg/dl Total Bilirubin 8.6 mg/dl Aspartate Amino Transf (AST/SGOT) 285 U/L Alanine Aminotransferase (ALT/SGPT) 256 U/L Alkaline Phosphatase 803 U/L Total Protein 5.5 gm/dl Albumin 1.7 gm/dl Globulin 3.8 gm/dl Albumin/Globulin Ratio 0.4 Assessment and Plan HypoTN/lightheadedness: probably multifactorial between anemia, cancer, and chemo -treat all factors Metastatic pancreatic ca: given that part of his sx may relate to chemo, and given that LFT raise is uncertain etiology, in addition to dr watkins will consult heme/onc to give thoughts on the status of cancer anemia - uncertain etiology but no overt hemorrhage. transfused 2 units - continue to follow Recent PE: ongoing lovenox use (holding briefly while anemia discerned) HTN: holding home meds due to above HALEIGH: home CPAP Hyperlipidemia: continue home meds Recent heart cath: 12/24 for SOB, neg Other: Full code "I'm not ready to be a DNR yet." per admitting physician Reg diet
[2017-03-15] MEDS ORDERED: INDOMETHACIN 50 MG SUPP PR SCH (18:00)
--- NOTE | 2017-03-15 18:30 | DIAGNOSTIC IMAGING REPORT ---
ERCP BILIARY DUCTAL CLINICAL HISTORY: 66 years-old Male presenting with EXPLORE DUCTS. TECHNIQUE: Fluoroscopy was provided for an intraoperative cholangiogram for stent placement. Contrast was injected through the cystic duct remnant. COMPARISON: None. FINDINGS: The common bile duct and left intrahepatic bile duct were cannulated with a guidewire. A catheter was passed over the wire to the level of the proximal common duct near the liver hilum. Contrast was injected into the biliary ductal system, which demonstrated a dilated left intrahepatic system. Subsequently, a stent was placed in the left hepatic duct. The guidewire was subsequently passed into the right hepatic duct, and the normal caliber right hepatic ducts were opacified. Fluoroscopy dosage (mGy): Not available. Fluoroscopy time: 10 minutes 36 seconds. Number of fluoroscopic spot images: 14. IMPRESSION: Fluoroscopy provided for an intraoperative cholangiogram for stent placement. Electronically signed by: Uriel Block M.D. 03/15/2017 6:29 PM Dictated Date/Time: 03/15/2017 6:25 PM
--- NOTE | 2017-03-15 18:47 | GI REPORT ---
Procedure Date: 03/15/2017 4:05 PM THIS REPORT HAS BEEN AMENDED Addendum Number: 1 Addendum Date: 03/15/2017 6:49:09 PM patient received 2 x 50mg Indocin suppositiories [facility] during the procedure. Procedure: ERCP Indications: Jaundice Medicines: General Anesthesia Complications: No immediate complications. Estimated blood loss: None Estimated Blood Loss: Estimated blood loss: none. Procedure: Pre-Anesthesia Assessment: - Prior to the procedure, a History and Physical was performed, and patient medications and allergies were reviewed. The patient's tolerance of previous anesthesia was also reviewed. The risks and benefits of the procedure and the sedation options and risks were discussed with the patient. All questions were answered, and informed consent was obtained. Prior Anticoagulants: The patient has taken no previous anticoagulant or antiplatelet agents. ASA Grade Assessment: III - A patient with severe systemic disease. After reviewing the risks and benefits, the patient was deemed in satisfactory condition to undergo the procedure. After obtaining informed consent, the scope was passed under direct vision. Throughout the procedure, the patient's blood pressure, pulse, and oxygen saturations were monitored continuously. The scope was introduced through the mouth, and advanced to the duodenum and used to inject contrast into the bile duct and ventral pancreatic duct. The ERCP was unusually difficult due to challenging cannulation because of abnormal anatomy and difficulty passing guidewires through biliary ductal stenosis. The patient tolerated the procedure well. Findings: The blood bank manager film was normal. The esophagus was successfully intubated under direct vision. The scope was advanced to a normal major papilla in the descending duodenum without detailed examination of the pharynx, larynx and associated structures, and upper GI tract. The upper GI tract was grossly normal. The ventral pancreatic duct was inadvertently cannulated with the short-nosed traction sphincterotome without any complications with a single limited opacification. The ventral pancreatic duct in the head of the pancreas and pancreatic duct in the genu of the pancreas were normal. Acrobat wire was passed into the biliary tree. The short-nosed traction sphincterotome was passed over the guidewire and the bile duct was then deeply cannulated. Contrast was injected. I personally interpreted the bile duct and pancreatic duct images. Ductal flow of contrast was adequate. Image quality was adequate. Contrast extended to the entire biliary tree. Contrast extended to the distal pancreatic duct. Opacification of the entire biliary tree was successful. The maximum diameter of the ducts was 6 mm. The left main hepatic duct contained a single localized stenosis. A wire was passed into the biliary tree. A 4 mm biliary sphincterotomy was made with a short-tip traction sphincterotome using ERBE electrocautery. There was no post-sphincterotomy bleeding. One 10 Fr by 15 cm temporary plastic biliary stent with a single external flap and a single internal flap was chosen due to unavailability of 7 Fr 15 cm stent which was measured by wire /papillotome marking and therefore was placed 14.5 cm into the common bile duct. Bile flowed through the stent. The stent was in good position. A wire was passed into the biliary tree. One 7 Fr by 14 cm temporary plastic stent with a single external flap and a single internal flap was placed 7 cm into the common bile duct. The stent was positioned too far downstream (towards the lumen of the GI tract). This stent was removed from the common bile duct using a snare. A 5 Fr 9 cm external pigtail pancreatic stent was attempted however this too could not be advanced due to the relatively small diameter of the CBD. This was also removed by snare. Impression: - A localized biliary stricture was found. The stricture was indeterminate. - A sphincterotomy was performed. - One temporary plastic biliary stent was placed into the common bile duct. - One temporary plastic stent was placed into the common bile duct. - One stent was removed from the common bile duct. Recommendation: - Repeat ERCP in 6 weeks to exchange stent. Will need to have 7 Fr stents available for bilateral positioning given small size of CBD . These stent requirements would be 7 Fr 15 cm or possible 7 Fr 18 cm for the left side and 7 Fr 12 -15 cm for the right system given narrowing near bifurcation. - [facility]. - Mefoxin (cefoxitin) 1 gm IV q 6 hr for 5 days. MD Alvaro Mcclendon MD 03/15/2017 6:46:57 PM This report has been signed electronically. Note Initiated On: 03/15/2017 4:05 PM I attest to the content of the Intraoperative Record and orders documented therein, exceptions below MD Alvaro Mcclendon MD 03/15/2017 6:49:47 PM This report has been signed electronically.
--- NOTE | 2017-03-15 19:10 | Anesthesiology Progress Note ---
Anesthesia Post Op Note Date & Time Mar 15, 2017 at 19:10 Vital Signs Pain Intensity: 0 Vital Signs Past 12 Hours Date Time Temp Pulse Resp B/P (MAP) Pulse Ox O2 Delivery O2 Flow Rate FiO2 03/15/17 18:55 36.5 64 16 129/86 97 Nasal Cannula 2 03/15/17 18:45 66 16 122/77 96 Oxymask 8 03/15/17 18:35 67 16 123/83 97 Oxymask 8 03/15/17 18:27 36.4 73 16 140/81 99 Oxymask 8 03/15/17 15:56 37.2 68 18 137/86 (103) 97 Room Air 03/15/17 15:21 36.8 66 20 120/74 (89) 96 03/15/17 12:00 CPAP 03/15/17 11:50 80 96 03/15/17 11:12 36.5 62 20 132/84 (100) 95 Room Air 03/15/17 08:00 Room Air Notes Mental Status: alert / awake / arousable, participated in evaluation Pt Amnestic to Procedure: Yes Nausea / Vomiting: adequately controlled Pain: adequately controlled Airway Patency, RR, SpO2: stable & adequate BP & HR: stable & adequate Hydration State: stable & adequate Anesthetic Complications: no major complications apparent
[2017-03-15] MEDS: CITALOPRAM 20 MG TAB PO SCH (20:58)
[2017-03-16] VITALS (7 sets, daily range): BP systolic 124–146; BP diastolic 76–106; PULSE 30–71; TEMP 36.4–36.9; O2SAT 93–99
[2017-03-16] MEDS: SODIUM CHLORIDE 0.9% 1000ML 1,000 ML IV SCH ×2 (03:28→14:34)
[2017-03-16] MEDS: LORAZEPAM 0.5 MG TAB PO SCH ×4 (03:28→21:01)
[2017-03-16 04:41] LABS: BASO % 0.1 %; BASO ABS # 0.01 K/uL (0-0.2); HEMATOCRIT 25.8 % (42-52); IG% 0.2 %; LYMPH % 6.6 %; LYMPH ABS # 0.65 K/uL (1.2-3.4); MEAN CELL VOLUME 91.8 fL (80-100); MEAN CORPUSCULAR HEMOGLOBIN 30.6 pg (25-34); MEAN CORPUSCULAR HGB CONC 33.3 g/dl (32-36); MEAN PLATELET VOLUME 9.6 fL (7.4-10.4); MONO % 0.1 %; PLATELET COUNT 258 K/uL (130-400); RED BLOOD COUNT 2.81 M/uL (4.7-6.1); WHITE BLOOD COUNT 9.79 K/uL (4.8-10.8)
[2017-03-16 05:09] LABS: ANISOCYTOSIS PRESENT; COMPLETE YES
[2017-03-16 05:13] LABS: ALB/GLOB RATIO 0.4 (0.9-2); BUN/CREATININE RATIO 26.5 (10-20); CALCIUM 7.4 mg/dl (8.5-10.1); CREATININE 0.89 mg/dl (0.60-1.40); POTASSIUM 4.8 mmol/L (3.5-5.1)
[2017-03-16] MEDS: ARFORMOTEROL TART 15MCG/2ML VIAL INH SCH ×2 (07:06→19:11)
[2017-03-16] MEDS: BUDESONIDE 0.5 MG/2 ML VIAL (PULMICORT) INH SCH ×2 (07:06→19:11)
[2017-03-16] MEDS: CHOLECALCIFEROL 1000 INTER.UNIT TAB PO SCH (07:44)
[2017-03-16] MEDS: CEROVITE ADV FORMULA TAB PO SCH (07:45)
[2017-03-16] MEDS: PANTOprazole SOD 40 MG TAB PO SCH ×2 (07:45→15:28)
[2017-03-16] MEDS: MONTELUKAST SOD 10 MG TAB PO SCH (07:45)
[2017-03-16] MEDS: CYANOCOBALAMIN 100 MCG TAB (VIT B-12) PO SCH (07:45)
[2017-03-16] MEDS: ASCORBIC ACID 500 MG TAB PO SCH (07:45)
[2017-03-16] MEDS: SIMVASTATIN 20 MG TAB PO SCH (07:46)
[2017-03-16] MEDS ORDERED: ENOXAPARIN 150 MG/1ML SYR SQ SCH (09:00)
[2017-03-16] MEDS: ENOXAPARIN 150 MG/1ML SYR SQ SCH (10:30)
--- NOTE | 2017-03-16 14:24 | Gastroenterology Progress Note ---
Progress Note Date of Service: Mar 16, 2017 Subjective Pt evaluation today including: conversation w/ patient, conversation w/ family , physical exam, chart review, lab review, review of studies, review of inpatient medication list cc abd pain HPI Pts son and with him for visit. Pt states has RUQ usually but today has lower abd pain. States constipated but had good BM today and not improved. Did tolerate po solids with no increase in the pain. Review of Systems Respiratory: No shortness of breath Cardiac: No chest pain Medications Current Inpatient Medications Medications (Trade) Dose Ordered Sig/Pedro Pablo Route Start Time Stop Time Status Last Admin Dose Admin Acetaminophen (Tylenol Tab) 650 mg Q4H PRN PO 03/14/17 14:15 04/13/17 14:14 Magnesium Hydroxide (Milk Of Magnesia Susp) 30 ml Q12H PRN PO 03/14/17 14:15 04/13/17 14:14 Ondansetron HCl (Zofran Inj) 4 mg Q6H PRN IV 03/14/17 14:15 04/13/17 14:14 03/15/17 01:56 4 MG Sodium Chloride 1,000 ml @ 80 mls/hr [id number] IV 03/14/17 14:45 04/13/17 14:44 03/16/17 03:28 80 MLS/HR Albuterol (Ventolin Hfa Inhaler) 2 puffs Q4 PRN INH 03/14/17 14:45 04/13/17 14:44 Arformoterol Tartrate (Brovana 15MCG/ 2ML Neb Soln) 15 mcg BIDR INH 03/14/17 20:00 04/13/17 19:59 03/16/17 07:06 15 MCG Ascorbic Acid (Vitamin C Tab) 500 mg QAM PO 03/15/17 09:00 04/14/17 08:59 03/16/17 07:45 500 MG Budesonide (Pulmicort Respules 0.5MG/ 2ML Neb Soln) 0.5 mg BIDR INH 03/14/17 20:00 04/13/17 19:59 03/16/17 07:06 0.5 MG Cholecalciferol (Vitamin D Tab) 1,000 inter.unit QAM PO 03/15/17 09:00 04/14/17 08:59 03/16/17 07:44 1,000 INTER.UNIT Citalopram Hydrobromide (celeXA TAB) 20 mg QPM PO 03/14/17 21:00 04/13/17 20:59 03/15/17 20:58 20 MG Hydrocodone Bit/ Homatropine Methylb (Hycodan Syrup) 5 ml Q4H PRN PO 03/14/17 14:45 03/28/17 14:44 Lorazepam (Ativan Tab) 0.5 mg Q6H PO 03/14/17 16:00 04/13/17 15:59 03/16/17 09:31 0.5 MG Meloxicam (Mobic Tab) 7.5 mg DAILY PRN PO 03/14/17 14:45 04/13/17 14:44 Montelukast Sodium (Singulair Tab) 10 mg QAM PO 03/15/17 09:00 04/14/17 08:59 03/16/17 07:45 10 MG Multivitamins/ Minerals (Multivitamin W/ Minerals Tab) 1 tab QAM PO 03/15/17 09:00 04/14/17 08:59 03/16/17 07:45 1 TAB Oxycodone HCl (Roxicodone Immediate Rel Tab) 5 mg Q6H PRN PO 03/14/17 14:45 03/28/17 14:44 03/15/17 08:30 5 MG Pantoprazole Sodium (Protonix Tab) 40 mg QAM PO 03/15/17 09:00 04/14/17 08:59 03/16/17 07:45 40 MG Simvastatin (Zocor Tab) 20 mg QAM PO 03/15/17 09:00 04/14/17 08:59 03/16/17 07:46 20 MG Cyanocobalamin (Vitamin B-12 Tab) 50 mcg QAM PO 03/15/17 09:00 04/14/17 08:59 03/16/17 07:45 50 MCG Heparin Sodium (Porcine) (Heparin 100 Unit/ml 5ml Flush) 5 ml PRN PRN IV 03/14/17 15:30 04/13/17 15:29 03/14/17 16:08 5 ML Heparin Sodium/ Dextrose 500 ml @ 22 mls/hr [id number] PRN IV 03/14/17 18:00 04/13/17 17:59 Future Hold 03/15/17 03:49 22 MLS/HR Enoxaparin Sodium (Lovenox Inj) 150 mg DAILY SQ 03/16/17 09:00 04/15/17 08:59 03/16/17 10:30 150 MG Objective Vital Signs Date Time Temp Pulse Resp B/P (MAP) Pulse Ox O2 Delivery O2 Flow Rate FiO2 03/16/17 12:00 Room Air 03/16/17 10:52 36.4 71 18 124/76 (92) 97 Room Air 03/16/17 08:00 Room Air 03/16/17 07:43 36.9 68 18 146/86 (106) 93 Room Air 03/16/17 07:06 30 14 97 Nasal Cannula 1.0 03/16/17 04:00 Nasal Cannula 2.0 03/16/17 04:00 36.5 66 18 138/83 (101) 99 Nasal Cannula 2.0 03/15/17 23:59 CPAP 03/15/17 23:59 36.0 81 18 147/89 (108) 99 CPAP 03/15/17 22:05 63 17 148/87 (107) 97 BiPAP 03/15/17 21:35 62 18 144/86 (105) 91 Nasal Cannula 2.0 03/15/17 21:20 80 97 03/15/17 20:52 36.5 66 19 152/90 (110) 98 Nasal Cannula 2.0 03/15/17 20:22 36.5 65 18 143/94 (110) 90 Nasal Cannula 2.0 03/15/17 20:07 64 17 132/87 (102) 92 Nasal Cannula 2.0 03/15/17 20:00 Nasal Cannula 03/15/17 19:57 36.5 63 17 128/83 (98) 96 Nasal Cannula 2.0 03/15/17 19:37 36.0 63 17 138/93 (108) 94 Nasal Cannula 2.0 03/15/17 19:20 63 16 136/79 96 Nasal Cannula 2 03/15/17 19:05 63 16 131/80 96 Nasal Cannula 2 03/15/17 18:55 36.5 64 16 129/86 97 Nasal Cannula 2 03/15/17 18:45 66 16 122/77 96 Oxymask 8 03/15/17 18:35 67 16 123/83 97 Oxymask 8 03/15/17 18:27 36.4 73 16 140/81 99 Oxymask 8 03/15/17 15:56 37.2 68 18 137/86 (103) 97 Room Air 03/15/17 15:21 36.8 66 20 120/74 (89) 96 Physical Exam General Appearance: WD/WN, no apparent distress Respiratory/Chest: lungs clear, no respiratory distress Cardiovascular: regular rate, rhythm Abdomen: normal bowel sounds, non tender, soft, no organomegaly, no pulsatile mass Laboratory Results Last 24 Hours Test 03/16/17 04:20 03/16/17 14:13 White Blood Count 9.79 K/uL Red Blood Count 2.81 M/uL Hemoglobin 8.6 g/dL Hematocrit 25.8 % Mean Corpuscular Volume 91.8 fL Mean Corpuscular Hemoglobin 30.6 pg Mean Corpuscular Hemoglobin Concent 33.3 g/dl Platelet Count 258 K/uL Mean Platelet Volume 9.6 fL Neutrophils (%) (Auto) 93.0 % Lymphocytes (%) (Auto) 6.6 % Monocytes (%) (Auto) 0.1 % Eosinophils (%) (Auto) 0.0 % Basophils (%) (Auto) 0.1 % Neutrophils # (Auto) 9.10 K/uL Lymphocytes # (Auto) 0.65 K/uL Monocytes # (Auto) 0.01 K/uL Eosinophils # (Auto) 0.00 K/uL Basophils # (Auto) 0.01 K/uL RDW Standard Deviation 59.3 fL RDW Coefficient of Variation 17.8 % Immature Granulocyte % (Auto) 0.2 % Immature Granulocyte # (Auto) 0.02 K/uL Anisocytosis PRESENT Activated Partial Thromboplast Time 26.8 SECONDS Partial Thromboplastin Ratio 1.0 Sodium Level 138 mmol/L Potassium Level 4.8 mmol/L Chloride Level 107 mmol/L Carbon Dioxide Level 24 mmol/L Anion Gap 7.0 mmol/L Blood Urea Nitrogen 24 mg/dl Creatinine 0.89 mg/dl Est Creatinine Clear Calc Drug Dose 90.2 ml/min Estimated GFR () 101.8 Estimated GFR (Non- 87.9 BUN/Creatinine Ratio 26.5 Random Glucose 157 mg/dl Calcium Level 7.4 mg/dl Total Bilirubin 7.6 mg/dl Aspartate Amino Transf (AST/SGOT) 161 U/L Alanine Aminotransferase (ALT/SGPT) 209 U/L Alkaline Phosphatase 706 U/L Total Protein 5.3 gm/dl Albumin 1.6 gm/dl Globulin 3.7 gm/dl Albumin/Globulin Ratio 0.4 Assessment and Plan elevated LFTS--somewhat better since placemetn of Left biliary stent. If continue to improve then he can proceed with chemo. If fail to improve adequately then consider ordering smaller diameter stents and attemping R and L bile duct stent placement. abd pain--usual RUQ and now lower. Pt did not want additional laxatives. Check lipase for post ERCP pancreatisi though lower pain would be unusual. Abdomen soft and no severe pain duodenal ulceration---spoke with DR Benavides and he confirmed that there is duodenal ulceration without visible vessel and may be malignant. Will treat with Protonix bid in case this is benign ulceration adn check stool for H.pylori anemia--could be secondary to duodenal ulceation with slow ooze. hx of PE--although pt had sphincterotomy and has duodenal ulceation, at this point treatment for PE more important. Follow for any active GI bleeding. pancreas ca with mets to liver
[2017-03-16] MEDS: OXYCODONE HCL IR 5 MG TAB (IMMEDIATE RELEASE) PO PRN ×2 (14:33→21:01)
--- NOTE | 2017-03-16 19:23 | Progress Note ---
Subjective Date of Service: Mar 16, 2017. Subjective Pt evaluation today including: conversation w/ patient, conversation w/ family , physical exam, chart review, lab review, review of studies, conversation w/ business continuity consultant, review of inpatient medication list feeling a bit better definitely looks less yellow to no signifcant abdominal pain no nausea no vomiting - but also no appetitie - but is a little better than it was - ate some. wanted cereal got eggs and so part of it might be that what he was brought wasn't that appetizing no noted blood loss had chemo earlier in the week for the first time Review of Systems all other ROS otherwise negative except for as above Objective Vital Signs Date Time Temp Pulse Resp B/P (MAP) Pulse Ox O2 Delivery O2 Flow Rate FiO2 03/16/17 19:11 68 14 97 Room Air 03/16/17 18:18 36.6 64 22 97 1.0 03/16/17 16:00 Room Air 03/16/17 15:49 36.6 64 22 145/106 (119) 97 Room Air 03/16/17 12:00 Room Air 03/16/17 10:52 36.4 71 18 124/76 (92) 97 Room Air 03/16/17 08:00 Room Air 03/16/17 07:43 36.9 68 18 146/86 (106) 93 Room Air 03/16/17 07:06 30 14 97 Nasal Cannula 1.0 03/16/17 04:00 Nasal Cannula 2.0 03/16/17 04:00 36.5 66 18 138/83 (101) 99 Nasal Cannula 2.0 03/15/17 23:59 CPAP 03/15/17 23:59 36.0 81 18 147/89 (108) 99 CPAP 03/15/17 22:05 63 17 148/87 (107) 97 BiPAP 03/15/17 21:35 62 18 144/86 (105) 91 Nasal Cannula 2.0 03/15/17 21:20 80 97 03/15/17 20:52 36.5 66 19 152/90 (110) 98 Nasal Cannula 2.0 03/15/17 20:22 36.5 65 18 143/94 (110) 90 Nasal Cannula 2.0 03/15/17 20:07 64 17 132/87 (102) 92 Nasal Cannula 2.0 03/15/17 20:00 Nasal Cannula 03/15/17 19:57 36.5 63 17 128/83 (98) 96 Nasal Cannula 2.0 03/15/17 19:37 36.0 63 17 138/93 (108) 94 Nasal Cannula 2.0 Physical Exam General Appearance: no apparent distress Eyes: EOMI ENT: hearing grossly normal Neck: trachea midline Respiratory/Chest: no respiratory distress, no accessory muscle use Extremities: normal range of motion Neurologic/Psychiatric: platform software engineer II-XII nml as tested, alert, normal mood/affect Skin: normal color, warm/dry Laboratory Results Last 24 Hours Test 03/16/17 04:20 03/16/17 14:24 White Blood Count 9.79 K/uL Red Blood Count 2.81 M/uL Hemoglobin 8.6 g/dL Hematocrit 25.8 % Mean Corpuscular Volume 91.8 fL Mean Corpuscular Hemoglobin 30.6 pg Mean Corpuscular Hemoglobin Concent 33.3 g/dl Platelet Count 258 K/uL Mean Platelet Volume 9.6 fL Neutrophils (%) (Auto) 93.0 % Lymphocytes (%) (Auto) 6.6 % Monocytes (%) (Auto) 0.1 % Eosinophils (%) (Auto) 0.0 % Basophils (%) (Auto) 0.1 % Neutrophils # (Auto) 9.10 K/uL Lymphocytes # (Auto) 0.65 K/uL Monocytes # (Auto) 0.01 K/uL Eosinophils # (Auto) 0.00 K/uL Basophils # (Auto) 0.01 K/uL RDW Standard Deviation 59.3 fL RDW Coefficient of Variation 17.8 % Immature Granulocyte % (Auto) 0.2 % Immature Granulocyte # (Auto) 0.02 K/uL Anisocytosis PRESENT Activated Partial Thromboplast Time 26.8 SECONDS Partial Thromboplastin Ratio 1.0 Sodium Level 138 mmol/L Potassium Level 4.8 mmol/L Chloride Level 107 mmol/L Carbon Dioxide Level 24 mmol/L Anion Gap 7.0 mmol/L Blood Urea Nitrogen 24 mg/dl Creatinine 0.89 mg/dl Est Creatinine Clear Calc Drug Dose 90.2 ml/min Estimated GFR () 101.8 Estimated GFR (Non- 87.9 BUN/Creatinine Ratio 26.5 Random Glucose 157 mg/dl Calcium Level 7.4 mg/dl Total Bilirubin 7.6 mg/dl Aspartate Amino Transf (AST/SGOT) 161 U/L Alanine Aminotransferase (ALT/SGPT) 209 U/L Alkaline Phosphatase 706 U/L Total Protein 5.3 gm/dl Albumin 1.6 gm/dl Globulin 3.7 gm/dl Albumin/Globulin Ratio 0.4 Lipase 177 U/L Assessment and Plan Hypotension/lightheadedness: probably multifactorial between anemia, cancer, and chemo -treating all factors -- this seems to have imrpoved Metastatic pancreatic ca: ongoing chemo as outpt. fortunately biliary stricture can explain LFT elevation in addition to cancer - and fortunately post stenting is improving elevated LFTs - as above, continue to follow anemia - uncertain etiology but no overt hemorrhage. transfused 2 units - continue to follow. hemoccult pending but true GI bleeding to cause that degree of anemia would be unlikely to be subtle. resumed lovenox - follow closely, but with hindsight suspect mostly effect from chemo just far earlier than expected Recent PE: ongoing lovenox use - resume today - follow Hgb tomorrow HTN: holding home meds due to above HALEIGH: home CPAP Hyperlipidemia: continue home meds Recent heart cath: 12/24 for SOB, neg Other: Full code "I'm not ready to be a DNR yet." per admitting physician Reg diet stable for med/surg
[2017-03-16] MEDS: CITALOPRAM 20 MG TAB PO SCH (21:01)
[2017-03-17] VITALS (9 sets, daily range): BP systolic 97–147; BP diastolic 65–87; PULSE 73–114; TEMP 36.5–38; O2SAT 94–99
[2017-03-17] MEDS: LORAZEPAM 0.5 MG TAB PO SCH ×3 (03:28→16:00)
[2017-03-17 06:40] LABS: ALB/GLOB RATIO 0.4 (0.9-2); CALCIUM 7.6 mg/dl (8.5-10.1); CREATININE 0.84 mg/dl (0.60-1.40); POTASSIUM 4.4 mmol/L (3.5-5.1)
[2017-03-17 06:52] LABS: HEMATOCRIT 26.2 % (42-52); MEAN CELL VOLUME 92.9 fL (80-100); MEAN CORPUSCULAR HEMOGLOBIN 30.1 pg (25-34); MEAN CORPUSCULAR HGB CONC 32.4 g/dl (32-36); MEAN PLATELET VOLUME 9.4 fL (7.4-10.4); PLATELET COUNT 225 K/uL (130-400); RED BLOOD COUNT 2.82 M/uL (4.7-6.1)
[2017-03-17] MEDS: ARFORMOTEROL TART 15MCG/2ML VIAL INH SCH ×2 (06:54→19:08)
[2017-03-17] MEDS: BUDESONIDE 0.5 MG/2 ML VIAL (PULMICORT) INH SCH ×2 (06:54→19:08)
[2017-03-17 07:33] LABS: BASO % 0.1 %; BASO ABS # 0.01 K/uL (0-0.2); COMPLETE YES; EOS % 0.3 %; IG% 0.3 %; LYMPH % 15.2 %; LYMPH ABS # 1.11 K/uL (1.2-3.4); MONO % 2.1 %; TARGET CELLS 1+
[2017-03-17] MEDS: OXYCODONE HCL IR 5 MG TAB (IMMEDIATE RELEASE) PO PRN (07:43)
[2017-03-17] MEDS: CHOLECALCIFEROL 1000 INTER.UNIT TAB PO SCH (07:43)
[2017-03-17] MEDS: CEROVITE ADV FORMULA TAB PO SCH (07:43)
[2017-03-17] MEDS: MONTELUKAST SOD 10 MG TAB PO SCH (07:43)
[2017-03-17] MEDS: SIMVASTATIN 20 MG TAB PO SCH (07:44)
[2017-03-17] MEDS: ASCORBIC ACID 500 MG TAB PO SCH (07:44)
[2017-03-17] MEDS: PANTOprazole SOD 40 MG TAB PO SCH ×2 (07:44→16:27)
[2017-03-17] MEDS: CYANOCOBALAMIN 100 MCG TAB (VIT B-12) PO SCH (07:44)
[2017-03-17] MEDS: ENOXAPARIN 150 MG/1ML SYR SQ SCH (07:45)
--- NOTE | 2017-03-17 11:42 | Hematology/Oncology Prog Note ---
Hematology/Onc Progress Note Date of Service Mar 17, 2017. Diagnoses Pancreatic cancer Anemia Biliary obstruction Medications Medications Administered Medications (Trade) Dose Ordered Sig/Pedro Pablo Route Start Time Stop Time Status Last Admin Dose Admin Ondansetron HCl (Zofran Inj) 4 mg Q6H PRN IV 03/14/17 14:15 04/13/17 14:14 03/15/17 01:56 4 MG Sodium Chloride 1,000 ml @ 80 mls/hr [id number] IV 03/14/17 14:45 03/16/17 16:10 DC 03/16/17 14:34 80 MLS/HR Arformoterol Tartrate (Brovana 15MCG/ 2ML Neb Soln) 15 mcg BIDR INH 03/14/17 20:00 04/13/17 19:59 03/17/17 06:54 15 MCG Ascorbic Acid (Vitamin C Tab) 500 mg QAM PO 03/15/17 09:00 04/14/17 08:59 03/17/17 07:44 500 MG Budesonide (Pulmicort Respules 0.5MG/ 2ML Neb Soln) 0.5 mg BIDR INH 03/14/17 20:00 04/13/17 19:59 03/17/17 06:54 0.5 MG Cholecalciferol (Vitamin D Tab) 1,000 inter.unit QAM PO 03/15/17 09:00 04/14/17 08:59 03/17/17 07:43 1,000 INTER.UNIT Citalopram Hydrobromide (celeXA TAB) 20 mg QPM PO 03/14/17 21:00 04/13/17 20:59 03/16/17 21:01 20 MG Lorazepam (Ativan Tab) 0.5 mg Q6H PO 03/14/17 16:00 04/13/17 15:59 03/17/17 11:00 0.5 MG Montelukast Sodium (Singulair Tab) 10 mg QAM PO 03/15/17 09:00 04/14/17 08:59 03/17/17 07:43 10 MG Multivitamins/ Minerals (Multivitamin W/ Minerals Tab) 1 tab QAM PO 03/15/17 09:00 04/14/17 08:59 03/17/17 07:43 1 TAB Oxycodone HCl (Roxicodone Immediate Rel Tab) 5 mg Q6H PRN PO 03/14/17 14:45 03/28/17 14:44 03/17/17 07:43 5 MG Pantoprazole Sodium (Protonix Tab) 40 mg QAM PO 03/15/17 09:00 03/16/17 14:19 DC 03/16/17 07:45 40 MG Simvastatin (Zocor Tab) 20 mg QAM PO 03/15/17 09:00 04/14/17 08:59 03/17/17 07:44 20 MG Cyanocobalamin (Vitamin B-12 Tab) 50 mcg QAM PO 03/15/17 09:00 04/14/17 08:59 03/17/17 07:44 50 MCG Heparin Sodium (Porcine) (Heparin 100 Unit/ml 5ml Flush) 5 ml PRN PRN IV 03/14/17 15:30 04/13/17 15:29 03/17/17 05:41 5 ML Heparin Sodium/ Dextrose 1 ea Q15M N/A 03/14/17 17:45 03/14/17 17:52 DC 03/14/17 17:49 1 EA Indomethacin (Indocin Suppository) 100 mg ONE ME 03/15/17 18:00 03/15/17 23:59 DC 03/15/17 17:23 100 MG Heparin Sodium/ Dextrose 500 ml @ 22 mls/hr [id number] PRN IV 03/14/17 18:00 03/16/17 16:10 DC 03/15/17 03:49 22 MLS/HR Miscellaneous (Stop Order) 1 ea TODAY@1200 ONCE N/A 03/15/17 12:00 03/15/17 12:01 DC 03/15/17 12:16 1 EA Heparin Sodium (Porcine) 4500 unit/Syringe 4.5 ml @ 10 mls/min NOW STAT IV 03/15/17 03:33 03/15/17 03:34 DC 03/15/17 03:47 10 MLS/MIN Enoxaparin Sodium (Lovenox Inj) 150 mg DAILY SQ 03/16/17 09:00 04/15/17 08:59 03/17/17 07:45 150 MG Pantoprazole Sodium (Protonix Tab) 40 mg AC@0700,1615 PO 03/16/17 16:15 04/15/17 16:14 03/17/17 07:44 40 MG Subjective Mr. Ponce was sleeping comfortably when I came to see him. He was easily arousable. He continues to have some soreness in his upper abdomen. He denies any fevers or chills. He also denies any bleeding. Review of Systems: Constitutional: No fever, No chills ENT: No unusual epistaxis Respiratory: No cough, No shortness of breath Cardiovascular: No chest pain Abdomen: + pain, No GI bleeding Male : No hematuria Heme: No abnormal bleeding/bruising Skin: + color change (more jaundiced today) Vital Signs Vital Signs Past 12 Hours Date Time Temp Pulse Resp B/P (MAP) Pulse Ox O2 Delivery O2 Flow Rate FiO2 03/17/17 08:04 36.7 73 20 147/87 (107) 99 Room Air 03/17/17 08:00 Room Air CPAP 03/17/17 06:56 73 16 98 Nasal Cannula 2.0 03/17/17 00:55 83 20 121/76 (91) 97 2.0 03/17/17 00:00 97 Room Air Physical Exam Constitutional: Level of Distress: NAD, chronically ill Psychiatric: Mental Status: active & alert Orientation: oriented except where noted Lungs: Auscuitation: breath sounds normal Cardiovascular: Heart Auscultation: RRR Abdomen: Inspection & Palpation: soft, RUQ tenderness Extremities: no edema Laboratory Last 24 Hours Test 03/16/17 14:24 03/17/17 05:43 Lipase 177 U/L White Blood Count 7.30 K/uL Red Blood Count 2.82 M/uL Hemoglobin 8.5 g/dL Hematocrit 26.2 % Mean Corpuscular Volume 92.9 fL Mean Corpuscular Hemoglobin 30.1 pg Mean Corpuscular Hemoglobin Concent 32.4 g/dl Platelet Count 225 K/uL Mean Platelet Volume 9.4 fL Neutrophils (%) (Auto) 82.0 % Lymphocytes (%) (Auto) 15.2 % Monocytes (%) (Auto) 2.1 % Eosinophils (%) (Auto) 0.3 % Basophils (%) (Auto) 0.1 % Neutrophils # (Auto) 5.99 K/uL Lymphocytes # (Auto) 1.11 K/uL Monocytes # (Auto) 0.15 K/uL Eosinophils # (Auto) 0.02 K/uL Basophils # (Auto) 0.01 K/uL RDW Standard Deviation 60.4 fL RDW Coefficient of Variation 17.7 % Immature Granulocyte % (Auto) 0.3 % Immature Granulocyte # (Auto) 0.02 K/uL Target Cells 1+ Sodium Level 137 mmol/L Potassium Level 4.4 mmol/L Chloride Level 106 mmol/L Carbon Dioxide Level 22 mmol/L Anion Gap 9.0 mmol/L Blood Urea Nitrogen 22 mg/dl Creatinine 0.84 mg/dl Est Creatinine Clear Calc Drug Dose 94.4 ml/min Estimated GFR () 104.3 Estimated GFR (Non- 90.0 BUN/Creatinine Ratio 26.0 Random Glucose 114 mg/dl Calcium Level 7.6 mg/dl Total Bilirubin 8.8 mg/dl Aspartate Amino Transf (AST/SGOT) 155 U/L Alanine Aminotransferase (ALT/SGPT) 195 U/L Alkaline Phosphatase 726 U/L Total Protein 5.5 gm/dl Albumin 1.7 gm/dl Globulin 3.8 gm/dl Albumin/Globulin Ratio 0.4 Assessment & Plan Mr. Ponce's counts are stable after the transfusion. However, his bilirubin is up today, which is worrisome. He was stented by ERCP on Saturday, but the stent may have dislocated or become occluded in some other way. He has no evidence of hemolysis. I would continue monitoring his counts and providing transfusions as needed.
--- NOTE | 2017-03-17 13:04 | Gastroenterology Progress Note ---
Progress Note Date of Service: Mar 17, 2017 Subjective Pt evaluation today including: conversation w/ patient, conversation w/ family (), physical exam, chart review, lab review, review of studies, review of inpatient medication list CC f/u elevated LFTS HPI Pt lethargic and will not really wake up and answer questions. Per nurse had roxycodone at 8 am and ativan at 1100. Review of Systems ROS Pt will not answer my questions Medications Current Inpatient Medications Medications (Trade) Dose Ordered Sig/Pedro Pablo Route Start Time Stop Time Status Last Admin Dose Admin Acetaminophen (Tylenol Tab) 650 mg Q4H PRN PO 03/14/17 14:15 04/13/17 14:14 Magnesium Hydroxide (Milk Of Magnesia Susp) 30 ml Q12H PRN PO 03/14/17 14:15 04/13/17 14:14 Ondansetron HCl (Zofran Inj) 4 mg Q6H PRN IV 03/14/17 14:15 04/13/17 14:14 03/15/17 01:56 4 MG Albuterol (Ventolin Hfa Inhaler) 2 puffs Q4 PRN INH 03/14/17 14:45 04/13/17 14:44 Arformoterol Tartrate (Brovana 15MCG/ 2ML Neb Soln) 15 mcg BIDR INH 03/14/17 20:00 04/13/17 19:59 03/17/17 06:54 15 MCG Ascorbic Acid (Vitamin C Tab) 500 mg QAM PO 03/15/17 09:00 04/14/17 08:59 03/17/17 07:44 500 MG Budesonide (Pulmicort Respules 0.5MG/ 2ML Neb Soln) 0.5 mg BIDR INH 03/14/17 20:00 04/13/17 19:59 03/17/17 06:54 0.5 MG Cholecalciferol (Vitamin D Tab) 1,000 inter.unit QAM PO 03/15/17 09:00 04/14/17 08:59 03/17/17 07:43 1,000 INTER.UNIT Citalopram Hydrobromide (celeXA TAB) 20 mg QPM PO 03/14/17 21:00 04/13/17 20:59 03/16/17 21:01 20 MG Hydrocodone Bit/ Homatropine Methylb (Hycodan Syrup) 5 ml Q4H PRN PO 03/14/17 14:45 03/28/17 14:44 Lorazepam (Ativan Tab) 0.5 mg Q6H PO 03/14/17 16:00 04/13/17 15:59 03/17/17 11:00 0.5 MG Meloxicam (Mobic Tab) 7.5 mg DAILY PRN PO 03/14/17 14:45 04/13/17 14:44 Montelukast Sodium (Singulair Tab) 10 mg QAM PO 03/15/17 09:00 04/14/17 08:59 03/17/17 07:43 10 MG Multivitamins/ Minerals (Multivitamin W/ Minerals Tab) 1 tab QAM PO 03/15/17 09:00 04/14/17 08:59 03/17/17 07:43 1 TAB Oxycodone HCl (Roxicodone Immediate Rel Tab) 5 mg Q6H PRN PO 03/14/17 14:45 03/28/17 14:44 03/17/17 07:43 5 MG Simvastatin (Zocor Tab) 20 mg QAM PO 03/15/17 09:00 04/14/17 08:59 03/17/17 07:44 20 MG Cyanocobalamin (Vitamin B-12 Tab) 50 mcg QAM PO 03/15/17 09:00 04/14/17 08:59 03/17/17 07:44 50 MCG Heparin Sodium (Porcine) (Heparin 100 Unit/ml 5ml Flush) 5 ml PRN PRN IV 03/14/17 15:30 04/13/17 15:29 03/17/17 05:41 5 ML Enoxaparin Sodium (Lovenox Inj) 150 mg DAILY SQ 03/16/17 09:00 04/15/17 08:59 03/17/17 07:45 150 MG Pantoprazole Sodium (Protonix Tab) 40 mg AC@0700,1615 PO 03/16/17 16:15 04/15/17 16:14 03/17/17 07:44 40 MG Objective Vital Signs Date Time Temp Pulse Resp B/P (MAP) Pulse Ox O2 Delivery O2 Flow Rate FiO2 03/17/17 08:04 36.7 73 20 147/87 (107) 99 Room Air 03/17/17 08:00 Room Air CPAP 03/17/17 06:56 73 16 98 Nasal Cannula 2.0 03/17/17 00:55 83 20 121/76 (91) 97 2.0 03/17/17 00:00 97 Room Air 03/16/17 19:11 68 14 97 Room Air 03/16/17 18:18 36.6 64 22 97 1.0 03/16/17 16:00 Room Air 03/16/17 15:49 36.6 64 22 145/106 (119) 97 Room Air Physical Exam General Appearance: WD/WN, no apparent distress Respiratory/Chest: lungs clear, no respiratory distress Cardiovascular: no murmur Abdomen: normal bowel sounds, non tender, soft Laboratory Results Last 24 Hours Test 03/16/17 14:24 03/17/17 05:43 Lipase 177 U/L White Blood Count 7.30 K/uL Red Blood Count 2.82 M/uL Hemoglobin 8.5 g/dL Hematocrit 26.2 % Mean Corpuscular Volume 92.9 fL Mean Corpuscular Hemoglobin 30.1 pg Mean Corpuscular Hemoglobin Concent 32.4 g/dl Platelet Count 225 K/uL Mean Platelet Volume 9.4 fL Neutrophils (%) (Auto) 82.0 % Lymphocytes (%) (Auto) 15.2 % Monocytes (%) (Auto) 2.1 % Eosinophils (%) (Auto) 0.3 % Basophils (%) (Auto) 0.1 % Neutrophils # (Auto) 5.99 K/uL Lymphocytes # (Auto) 1.11 K/uL Monocytes # (Auto) 0.15 K/uL Eosinophils # (Auto) 0.02 K/uL Basophils # (Auto) 0.01 K/uL RDW Standard Deviation 60.4 fL RDW Coefficient of Variation 17.7 % Immature Granulocyte % (Auto) 0.3 % Immature Granulocyte # (Auto) 0.02 K/uL Target Cells 1+ Sodium Level 137 mmol/L Potassium Level 4.4 mmol/L Chloride Level 106 mmol/L Carbon Dioxide Level 22 mmol/L Anion Gap 9.0 mmol/L Blood Urea Nitrogen 22 mg/dl Creatinine 0.84 mg/dl Est Creatinine Clear Calc Drug Dose 94.4 ml/min Estimated GFR () 104.3 Estimated GFR (Non- 90.0 BUN/Creatinine Ratio 26.0 Random Glucose 114 mg/dl Calcium Level 7.6 mg/dl Total Bilirubin 8.8 mg/dl Aspartate Amino Transf (AST/SGOT) 155 U/L Alanine Aminotransferase (ALT/SGPT) 195 U/L Alkaline Phosphatase 726 U/L Total Protein 5.5 gm/dl Albumin 1.7 gm/dl Globulin 3.8 gm/dl Albumin/Globulin Ratio 0.4 Assessment and Plan mental status change--perhaps from ativan and narcotic, check ammonia and if negative defer other workup to hospitalist elevated LFTS--TB worse, others about the same. Check again in am but stent does not seem to be helping much so fat abd pain--per nurse 09/17 this am duodenal ulceration---continue PPI anemia--could be secondary to duodenal ulceation with slow ooze--stable. hx of PE--although pt had sphincterotomy and has duodenal ulceation, at this point treatment for PE more important. Follow for any active GI bleeding. pancreas ca with mets to liver
--- NOTE | 2017-03-17 15:17 | DIAGNOSTIC IMAGING REPORT ---
ASCITES-ABDOMEN LIMITED CLINICAL HISTORY: 66 years-old Male presenting with metastatic liver disease, abdominal pain, concern for SBP, ?fld. TECHNIQUE: Real-time grayscale ultrasound imaging of the abdomen was performed for a limited and focused evaluation for ascites. COMPARISON: CT from 02/13/2017. FINDINGS: No evidence of free intra-abdominal fluid. Heterogeneous appearance of the liver, including characterize. No distended fluid-filled loops of bowel. IMPRESSION: 1. No ascites. Electronically signed by: Uriel Block M.D. 03/17/2017 3:16 PM Dictated Date/Time: 03/17/2017 3:15 PM
[2017-03-17] MEDS: METRONIDAZOLE / NSS 500 MG in PREMIXED NSS 100 ML IV SCH ×2 (15:33→22:18)
[2017-03-17] MEDS: CEFOXITIN IV 2,000 MG in DEXTROSE 5% 50ML 50 ML IV SCH ×2 (15:34→20:23)
--- NOTE | 2017-03-17 15:43 | Family Medicine Progress Note ---
Progress Note Date of Service Mar 17, 2017. Subjective Pt evaluation today including: conversation w/ patient, physical exam, chart review, lab review, review of inpatient medication list Pain: Abdominal pain PO Intake: Tolerating PO intake Voiding: no voiding problems Mr. Ponce reports that he feels lousy today, and that he has abdominal pain. He was quite fatigued this morning and kept falling asleep whilst I was talking to him. He denies chest pain, SOB, or cough. Constitutional: No fever Respiratory: No cough, No sputum, No shortness of breath Abdomen: + pain All Other Systems: Reviewed and Negative Medications Current Inpatient Medications Medications (Trade) Dose Ordered Sig/Pedro Pablo Route Start Time Stop Time Status Last Admin Dose Admin Acetaminophen (Tylenol Tab) 650 mg Q4H PRN PO 03/14/17 14:15 04/13/17 14:14 Magnesium Hydroxide (Milk Of Magnesia Susp) 30 ml Q12H PRN PO 03/14/17 14:15 04/13/17 14:14 Ondansetron HCl (Zofran Inj) 4 mg Q6H PRN IV 03/14/17 14:15 04/13/17 14:14 03/15/17 01:56 4 MG Albuterol (Ventolin Hfa Inhaler) 2 puffs Q4 PRN INH 03/14/17 14:45 04/13/17 14:44 Arformoterol Tartrate (Brovana 15MCG/ 2ML Neb Soln) 15 mcg BIDR INH 03/14/17 20:00 04/13/17 19:59 03/17/17 06:54 15 MCG Ascorbic Acid (Vitamin C Tab) 500 mg QAM PO 03/15/17 09:00 04/14/17 08:59 03/17/17 07:44 500 MG Budesonide (Pulmicort Respules 0.5MG/ 2ML Neb Soln) 0.5 mg BIDR INH 03/14/17 20:00 04/13/17 19:59 03/17/17 06:54 0.5 MG Cholecalciferol (Vitamin D Tab) 1,000 inter.unit QAM PO 03/15/17 09:00 04/14/17 08:59 03/17/17 07:43 1,000 INTER.UNIT Citalopram Hydrobromide (celeXA TAB) 20 mg QPM PO 03/14/17 21:00 04/13/17 20:59 03/16/17 21:01 20 MG Hydrocodone Bit/ Homatropine Methylb (Hycodan Syrup) 5 ml Q4H PRN PO 03/14/17 14:45 03/28/17 14:44 Lorazepam (Ativan Tab) 0.5 mg Q6H PO 03/14/17 16:00 04/13/17 15:59 03/17/17 11:00 0.5 MG Meloxicam (Mobic Tab) 7.5 mg DAILY PRN PO 03/14/17 14:45 04/13/17 14:44 Montelukast Sodium (Singulair Tab) 10 mg QAM PO 03/15/17 09:00 04/14/17 08:59 03/17/17 07:43 10 MG Multivitamins/ Minerals (Multivitamin W/ Minerals Tab) 1 tab QAM PO 03/15/17 09:00 04/14/17 08:59 03/17/17 07:43 1 TAB Oxycodone HCl (Roxicodone Immediate Rel Tab) 5 mg Q6H PRN PO 03/14/17 14:45 03/28/17 14:44 03/17/17 07:43 5 MG Simvastatin (Zocor Tab) 20 mg QAM PO 03/15/17 09:00 04/14/17 08:59 03/17/17 07:44 20 MG Cyanocobalamin (Vitamin B-12 Tab) 50 mcg QAM PO 03/15/17 09:00 04/14/17 08:59 03/17/17 07:44 50 MCG Heparin Sodium (Porcine) (Heparin 100 Unit/ml 5ml Flush) 5 ml PRN PRN IV 03/14/17 15:30 04/13/17 15:29 03/17/17 05:41 5 ML Enoxaparin Sodium (Lovenox Inj) 150 mg DAILY SQ 03/16/17 09:00 04/15/17 08:59 03/17/17 07:45 150 MG Pantoprazole Sodium (Protonix Tab) 40 mg AC@0700,1615 PO 03/16/17 16:15 04/15/17 16:14 03/17/17 07:44 40 MG Objective Vital Signs Date Time Temp Pulse Resp B/P (MAP) Pulse Ox O2 Delivery O2 Flow Rate FiO2 03/17/17 13:01 38.0 114 18 117/78 (91) 94 Room Air 03/17/17 08:04 36.7 73 20 147/87 (107) 99 Room Air 03/17/17 08:00 Room Air CPAP 03/17/17 06:56 73 16 98 Nasal Cannula 2.0 03/17/17 00:55 83 20 121/76 (91) 97 2.0 03/17/17 00:00 97 Room Air 03/16/17 19:11 68 14 97 Room Air 03/16/17 18:18 36.6 64 22 97 1.0 03/16/17 16:00 Room Air 03/16/17 15:49 36.6 64 22 145/106 (119) 97 Room Air Physical Exam General Appearance: WD/WN, no apparent distress, + pertinent finding (jaundiced ) Respiratory/Chest: chest non-tender, lungs clear, normal breath sounds, no respiratory distress, no accessory muscle use Cardiovascular: regular rate, rhythm, no edema, no gallop, no JVD, no murmur Abdomen: soft, no organomegaly, no pulsatile mass, + tenderness (upper abdomen tender), + pertinent finding (no rebound tenderness, no guarding) Laboratory Results Last 24 Hours Test 03/16/17 14:24 03/17/17 05:43 03/17/17 13:04 Lipase 177 U/L White Blood Count 7.30 K/uL Red Blood Count 2.82 M/uL Hemoglobin 8.5 g/dL Hematocrit 26.2 % Mean Corpuscular Volume 92.9 fL Mean Corpuscular Hemoglobin 30.1 pg Mean Corpuscular Hemoglobin Concent 32.4 g/dl Platelet Count 225 K/uL Mean Platelet Volume 9.4 fL Neutrophils (%) (Auto) 82.0 % Lymphocytes (%) (Auto) 15.2 % Monocytes (%) (Auto) 2.1 % Eosinophils (%) (Auto) 0.3 % Basophils (%) (Auto) 0.1 % Neutrophils # (Auto) 5.99 K/uL Lymphocytes # (Auto) 1.11 K/uL Monocytes # (Auto) 0.15 K/uL Eosinophils # (Auto) 0.02 K/uL Basophils # (Auto) 0.01 K/uL RDW Standard Deviation 60.4 fL RDW Coefficient of Variation 17.7 % Immature Granulocyte % (Auto) 0.3 % Immature Granulocyte # (Auto) 0.02 K/uL Target Cells 1+ Sodium Level 137 mmol/L Potassium Level 4.4 mmol/L Chloride Level 106 mmol/L Carbon Dioxide Level 22 mmol/L Anion Gap 9.0 mmol/L Blood Urea Nitrogen 22 mg/dl Creatinine 0.84 mg/dl Est Creatinine Clear Calc Drug Dose 94.4 ml/min Estimated GFR () 104.3 Estimated GFR (Non- 90.0 BUN/Creatinine Ratio 26.0 Random Glucose 114 mg/dl Calcium Level 7.6 mg/dl Total Bilirubin 8.8 mg/dl Aspartate Amino Transf (AST/SGOT) 155 U/L Alanine Aminotransferase (ALT/SGPT) 195 U/L Alkaline Phosphatase 726 U/L Total Protein 5.5 gm/dl Albumin 1.7 gm/dl Globulin 3.8 gm/dl Albumin/Globulin Ratio 0.4 Assessment and Plan Mr. Ponce is a 66 year old gentleman who was a direct admit from Dr. Benavides due to hypotension. Abdominal pain and lethargy - ?ascending cholangitis ?SBP - ultrasound negative for ascites - likely ascending cholangitis - Blood cultures and urine cultures taken - CRP = 13.2 - ammonia = 16.6 - start flagyl and cefoxitin - hold ativan given current fatigue/sleepiness - Tylenol 325mg prn q8h for fever Hypotension/lightheadedness: - probably multifactorial between anemia, cancer, and chemo - improved Metastatic pancreatic ca - ongoing chemo as outpatient Elevated LFTs - AST and ALT decreasing, but alk phos nayla from 706 to 726 and bilirubin is elevated at 8.8 Anemia - uncertain etiology - transfused 2 units - hemoglobin stable at 8.5 Recent PE - continue Lovenox, Hgb stable Hypertension - continue to hold home meds due to above [place]: - home CPAP Hyperlipidemia: - continue home meds Recent heart cath: - 12/24 for SOB, neg Code: Full code "I'm not ready to be a DNR yet." per admitting physician Disposition: remains on med/surg DVT Prophylaxis: lovenox Resident Physician Supervision Note: I interviewed and examined the patient. Discussed with Dr. Lucero and agree with findings and plan as documented in the note. Any exceptions or clarifications are listed here: None Documented By: Charles Estrada visited personally multiple times today as well as separate visits by R1 more lethargic. notes that he's in [facility], but otherwise little HPI d/w at length and then again later w whole family d/w GI and heme/onc vitlas noted more jaundiced. lethargic, answers some questions then rolls head to the side and doesn't answer further. no respiraotry or pain distress. nc at mmm. lungs cta b/l no rrw good spontaneous effort. abd mild distention diffuse tender questionable fluid wave vs adipose. no c/c/e sepsis w septic encephalopathy -initial ddx broad, with abdominal tenderness SBP vs cholangitis large. also due to chemo/frail/hospital pt UTI, bacteremia and pneumonia worked up as well - - however more than likely cholangitis (which would account for both sepsis picture and today's rise in LFTs) -cefoxitin and flagyl, supportive care, IVF -anticipate LFTs improve over 24-72hrs if current rise all relates to cholangitis -extensive discussiosns with family otherwise as above Resident Tracking Resident Involvement: Resident Care Provided Care Provided: Adult Hospital Medicine
[2017-03-17] MEDS ORDERED: LACTATED RINGER'S 1000ML 1,000 ML IV ONE (16:15)
[2017-03-17] MEDS ORDERED: ACETAMINOPHEN 325 MG TAB PO PRN (16:45)
[2017-03-17] MEDS ORDERED: LACTATED RINGER'S 1000ML 1,000 ML IV SCH (18:45)
[2017-03-17] MEDS: CITALOPRAM 20 MG TAB PO SCH (20:21)
[2017-03-17] MEDS: LACTATED RINGER'S 1000ML 1,000 ML IV SCH (20:21)
--- NOTE | 2017-03-17 22:25 | DIAGNOSTIC IMAGING REPORT ---
CHEST 2 VIEWS ROUTINE CLINICAL HISTORY: 66 years-old Male presenting with hypoxia, fever, ?infiltrate. TECHNIQUE: PA and lateral views of the chest were obtained. COMPARISON: 03/14/2017. FINDINGS: Partially visualized catheter projecting over the abdomen. Left subclavian Mediport terminates in the lower SVC. Cardiomediastinal silhouette normal. Mildly low lung volumes with hypoventilatory changes. Lungs and pleural spaces clear. Osseous structures normal. Upper abdomen normal. IMPRESSION: 1. Mildly low lung volumes with hypoventilatory changes. No focal infiltrate. Electronically signed by: Uriel Block M.D. 03/17/2017 10:24 PM Dictated Date/Time: 03/17/2017 10:21 PM
[2017-03-18] VITALS: O2SAT 98
[2017-03-18 01:52] LABS: URINE APPEARANCE CLEAR (CLEAR); URINE COLOR DK YELLOW; URINE NITRITE NEG (NEG); URINE SPECIFIC GRAVITY 1.009 (1.000-1.030); UROBILINOGEN POS (NEG)
[2017-03-18 01:58] LABS: URINE BILIRUBIN 1+ (NEG)
[2017-03-18 02:00] LABS: MANUAL MICROSCOPIC REQUIRED? NO; REVIEW REQ? YES
[2017-03-18 02:14] LABS: URINE EPITHELIAL CELL AUTO 0-5 /lpf (0-5)
[2017-03-18] MEDS: CEFOXITIN IV 2,000 MG in DEXTROSE 5% 50ML 50 ML IV SCH ×2 (02:21→07:55)
[2017-03-18] MEDS: LACTATED RINGER'S 1000ML 1,000 ML IV SCH (04:55)
[2017-03-18] MEDS: METRONIDAZOLE / NSS 500 MG in PREMIXED NSS 100 ML IV SCH (05:43)
[2017-03-18 06:38] LABS: HEMATOCRIT 22.1 % (42-52); MEAN CELL VOLUME 91.7 fL (80-100); MEAN CORPUSCULAR HEMOGLOBIN 31.1 pg (25-34); MEAN CORPUSCULAR HGB CONC 33.9 g/dl (32-36); MEAN PLATELET VOLUME 9.1 fL (7.4-10.4); PLATELET COUNT 113 K/uL (130-400); RED BLOOD COUNT 2.41 M/uL (4.7-6.1); WHITE BLOOD COUNT 10.86 K/uL (4.8-10.8)
[2017-03-18 06:41] LABS: ALB/GLOB RATIO 0.4 (0.9-2); BUN/CREATININE RATIO 20.6 (10-20); C-REACTIVE PROTEIN 16.5 mg/dl (0-0.29); CALCIUM 7.6 mg/dl (8.5-10.1); CREATININE 1.1 mg/dl (0.60-1.40); POTASSIUM 3.9 mmol/L (3.5-5.1)
[2017-03-18 06:50] LABS: BASO % 0.1 %; BASO ABS # 0.01 K/uL (0-0.2); COMPLETE YES; DOHLE BODIES 2+; EOS % 0.1 %; IG% 0.1 %; LYMPH % 9.3 %; LYMPH ABS # 1.01 K/uL (1.2-3.4); MONO % 5.3 %; NEUT % 85.1 %; PLT ESTIMATE NORMAL; TARGET CELLS 1+; TOXIC GRANULATION 1+; VACUOLIZATION 1+
[2017-03-18] MEDS: ARFORMOTEROL TART 15MCG/2ML VIAL INH SCH (06:58)
[2017-03-18] MEDS: BUDESONIDE 0.5 MG/2 ML VIAL (PULMICORT) INH SCH (06:58)
[2017-03-18 07:00] VITALS: PULSE 61; O2SAT 98
[2017-03-18 07:29] VITALS: BP 136/81; PULSE 61; TEMP 36.6; O2SAT 98
[2017-03-18] MEDS: OXYCODONE HCL IR 5 MG TAB (IMMEDIATE RELEASE) PO PRN ×2 (07:55→15:21)
[2017-03-18] MEDS: MONTELUKAST SOD 10 MG TAB PO SCH (07:56)
[2017-03-18] MEDS: CEROVITE ADV FORMULA TAB PO SCH (07:56)
[2017-03-18] MEDS: PANTOprazole SOD 40 MG TAB PO SCH (07:57)
[2017-03-18] MEDS: CHOLECALCIFEROL 1000 INTER.UNIT TAB PO SCH (07:57)
[2017-03-18] MEDS: CYANOCOBALAMIN 100 MCG TAB (VIT B-12) PO SCH (07:57)
[2017-03-18] MEDS: ASCORBIC ACID 500 MG TAB PO SCH (07:57)
[2017-03-18] MEDS: SIMVASTATIN 20 MG TAB PO SCH (07:57)
[2017-03-18] MEDS: ENOXAPARIN 150 MG/1ML SYR SQ SCH (07:59)
--- NOTE | 2017-03-18 08:47 | Anesthesiology Progress Note ---
Anesthesia Post Op Note Date & Time Mar 18, 2017 at 08:47 Vital Signs Pain Intensity: 2.0 Vital Signs Past 12 Hours Date Time Temp Pulse Resp B/P (MAP) Pulse Ox O2 Delivery O2 Flow Rate FiO2 03/18/17 07:29 36.6 61 18 136/81 (99) 98 Room Air 03/18/17 07:00 61 16 98 Room Air 03/18/17 00:00 98 BiPAP 2.0 03/17/17 23:38 36.5 87 18 109/73 (85) 94 BiPAP Notes Mental Status: alert / awake / arousable, participated in evaluation Pt Amnestic to Procedure: Yes Nausea / Vomiting: adequately controlled Pain: adequately controlled Airway Patency, RR, SpO2: stable & adequate BP & HR: stable & adequate Hydration State: stable & adequate Anesthetic Complications: no major complications apparent
[2017-03-18] MEDS ORDERED: PIPERACILL/TAZOBAC IV 3.375 GM in DEXTROSE 5% 100ML 100 ML IV STA (09:58)
[2017-03-18] MEDS ORDERED: PIPERACILL/TAZOBAC CONSULT ACTIVE PRN (10:00)
[2017-03-18 11:23] LABS: FERRITIN 4526.3 ng/ml (8.0-388.0)
--- NOTE | 2017-03-18 11:43 | Hematology/Oncology Prog Note ---
Hematology/Onc Progress Note Date of Service Mar 18, 2017. Diagnoses Static pancreatic carcinoma Hyperbilirubinemia Anemia Medications Medications Administered Medications (Trade) Dose Ordered Sig/Pedro Pablo Route Start Time Stop Time Status Last Admin Dose Admin Ondansetron HCl (Zofran Inj) 4 mg Q6H PRN IV 03/14/17 14:15 04/13/17 14:14 03/15/17 01:56 4 MG Sodium Chloride 1,000 ml @ 80 mls/hr [id number] IV 03/14/17 14:45 03/16/17 16:10 DC 03/16/17 14:34 80 MLS/HR Arformoterol Tartrate (Brovana 15MCG/ 2ML Neb Soln) 15 mcg BIDR INH 03/14/17 20:00 04/13/17 19:59 03/18/17 06:58 15 MCG Ascorbic Acid (Vitamin C Tab) 500 mg QAM PO 03/15/17 09:00 04/14/17 08:59 03/18/17 07:57 500 MG Budesonide (Pulmicort Respules 0.5MG/ 2ML Neb Soln) 0.5 mg BIDR INH 03/14/17 20:00 04/13/17 19:59 03/18/17 06:58 0.5 MG Cholecalciferol (Vitamin D Tab) 1,000 inter.unit QAM PO 03/15/17 09:00 04/14/17 08:59 03/18/17 07:57 1,000 INTER.UNIT Citalopram Hydrobromide (celeXA TAB) 20 mg QPM PO 03/14/17 21:00 04/13/17 20:59 03/17/17 20:21 20 MG Lorazepam (Ativan Tab) 0.5 mg Q6H PO 03/14/17 16:00 04/13/17 15:59 Future Hold 03/17/17 11:00 0.5 MG Montelukast Sodium (Singulair Tab) 10 mg QAM PO 03/15/17 09:00 04/14/17 08:59 03/18/17 07:56 10 MG Multivitamins/ Minerals (Multivitamin W/ Minerals Tab) 1 tab QAM PO 03/15/17 09:00 04/14/17 08:59 03/18/17 07:56 1 TAB Oxycodone HCl (Roxicodone Immediate Rel Tab) 5 mg Q6H PRN PO 03/14/17 14:45 03/28/17 14:44 03/18/17 07:55 5 MG Pantoprazole Sodium (Protonix Tab) 40 mg QAM PO 03/15/17 09:00 03/16/17 14:19 DC 03/16/17 07:45 40 MG Simvastatin (Zocor Tab) 20 mg QAM PO 03/15/17 09:00 04/14/17 08:59 03/18/17 07:57 20 MG Cyanocobalamin (Vitamin B-12 Tab) 50 mcg QAM PO 03/15/17 09:00 04/14/17 08:59 03/18/17 07:57 50 MCG Heparin Sodium (Porcine) (Heparin 100 Unit/ml 5ml Flush) 5 ml PRN PRN IV 03/14/17 15:30 04/13/17 15:29 03/17/17 15:12 5 ML Heparin Sodium/ Dextrose 1 ea Q15M N/A 03/14/17 17:45 03/14/17 17:52 DC 03/14/17 17:49 1 EA Indomethacin (Indocin Suppository) 100 mg ONE NH 03/15/17 18:00 03/15/17 23:59 DC 03/15/17 17:23 100 MG Heparin Sodium/ Dextrose 500 ml @ 22 mls/hr [id number] PRN IV 03/14/17 18:00 03/16/17 16:10 DC 03/15/17 03:49 22 MLS/HR Miscellaneous (Stop Order) 1 ea TODAY@1200 ONCE N/A 03/15/17 12:00 03/15/17 12:01 DC 03/15/17 12:16 1 EA Heparin Sodium (Porcine) 4500 unit/Syringe 4.5 ml @ 10 mls/min NOW STAT IV 03/15/17 03:33 03/15/17 03:34 DC 03/15/17 03:47 10 MLS/MIN Enoxaparin Sodium (Lovenox Inj) 150 mg DAILY SQ 03/16/17 09:00 04/15/17 08:59 03/18/17 07:59 150 MG Pantoprazole Sodium (Protonix Tab) 40 mg AC@0700,1615 PO 03/16/17 16:15 04/15/17 16:14 03/18/17 07:57 40 MG Cefoxitin Sodium 2000 mg/Dextrose 60 ml @ 100 mls/hr Q6H IV 03/17/17 14:30 03/18/17 09:19 DC 03/18/17 07:55 100 MLS/HR Metronidazole 500 mg/Prmx 100 ml @ 100 mls/hr Q8H IV 03/17/17 14:30 03/18/17 09:19 DC 03/18/17 05:43 100 MLS/HR Lactated Ringer's 2,000 ml @ 999 mls/hr Q2H1M ONCE IV 03/17/17 16:15 03/17/17 18:15 DC 03/17/17 16:38 999 MLS/HR Lactated Ringer's 1,000 ml @ 125 mls/hr Q8H IV 03/17/17 19:30 03/18/17 11:29 DC 03/18/17 04:55 125 MLS/HR Piperacillin Sod/ Tazobactam Sod 3.375 gm/Dextrose 115 ml @ 230 mls/hr NOW STAT IV 03/18/17 09:58 03/18/17 10:27 DC 03/18/17 10:24 230 MLS/HR Subjective Mildy somnolent today. Overtly jaundice. He denies any significant pain. He denies any overt bleeding Review of Systems: Constitutional: Negative for fever Eyes: Negative for event change of vision ENT: Negative for epistaxis, nasal discharge, sore throat, or deafness Cardiovascular: Negative for chest pain, palpitations, dizziness, diaphoresis Respiratory: Negative for new shortness of breath,hemoptysis, or purulent cough Gastrointestinal: Negative for diarrhea, hematemesis, melena, nausea, vomiting , or dyspepsia Integumentary (skin): Negative for rash or jaundice discoloration Neurological: Positive for generalized weakness Lymphatic/Hematologic: Negative for petechiae, bleeding or new adenopathy Musculoskeletal: Negative for new joint or back pain Allergic/Immunologic: Negative for unusual rash or pruritis. Vital Signs Vital Signs Past 12 Hours Date Time Temp Pulse Resp B/P (MAP) Pulse Ox O2 Delivery O2 Flow Rate FiO2 03/18/17 07:29 36.6 61 18 136/81 (99) 98 Room Air 03/18/17 07:00 61 16 98 Room Air 03/18/17 00:00 98 BiPAP 2.0 Physical Exam Constitutional: vitals are stable. Go icterus and mildly jaundiced Eyes: Eyes are PARAM EOMI without conjuctival erythema or icterus. ENT: External examination was negative for masses. Neck: Negative for masses or palpable thyromegaly Respiratory: Lung sounds were generally clear bilaterally Cardiovascular: Heart was RRR without significant murmur, gallops aoe rubs Gastrointestinal: Liver was palpable between below the right costal margin at least 3 cm Lymphatic system: there was no palpable peripheral lymphadenopathy Musculoskeletal System: The musculoskeletal system seemed concordant with age. Skin: The skin was positive for a jaundiced hue Neurologic exam: The exam was negative for any focal findings. Deep tendon reflexes were equal and symmetrical. Psychiatric exam: Was essentially negative with normal mood and effect. Extremities: Negative for significant edema erythema Constitutional: Level of Distress: NAD, chronically ill Psychiatric: Mental Status: active & alert Orientation: oriented except where noted Lungs: Auscuitation: breath sounds normal Cardiovascular: Heart Auscultation: RRR Abdomen: Inspection & Palpation: soft, RUQ tenderness Extremities: no edema Laboratory Last 24 Hours Test 03/17/17 13:32 03/17/17 13:39 03/18/17 01:42 03/18/17 05:29 Ammonia 16.6 umol/L C-Reactive Protein 13.20 mg/dl 16.50 mg/dl Urine Color DK YELLOW Urine Appearance CLEAR Urine pH 6.0 Urine Specific [place] 1.009 Urine Protein NEG Urine Glucose (UA) NEG Urine Ketones NEG Urine Occult Blood 1+ Urine Nitrite NEG Urine Bilirubin 1+ Urine Urobilinogen POS Urine Leukocyte Esterase NEG Urine WBC (Auto) 0 /hpf Urine RBC (Auto) 0-4 /hpf Urine Hyaline Casts (Auto) 0 /lpf Urine Epithelial Cells (Auto) 0-5 /lpf Urine Bacteria (Auto) NEG White Blood Count 10.86 K/uL Red Blood Count 2.41 M/uL Hemoglobin 7.5 g/dL Hematocrit 22.1 % Mean Corpuscular Volume 91.7 fL Mean Corpuscular Hemoglobin 31.1 pg Mean Corpuscular Hemoglobin Concent 33.9 g/dl Platelet Count 113 K/uL Mean Platelet Volume 9.1 fL Neutrophils (%) (Auto) 85.1 % Lymphocytes (%) (Auto) 9.3 % Monocytes (%) (Auto) 5.3 % Eosinophils (%) (Auto) 0.1 % Basophils (%) (Auto) 0.1 % Neutrophils # (Auto) 9.24 K/uL Lymphocytes # (Auto) 1.01 K/uL Monocytes # (Auto) 0.58 K/uL Eosinophils # (Auto) 0.01 K/uL Basophils # (Auto) 0.01 K/uL RDW Standard Deviation 56.9 fL RDW Coefficient of Variation 17.4 % Immature Granulocyte % (Auto) 0.1 % Immature Granulocyte # (Auto) 0.01 K/uL Toxic Granulation 1+ Toxic Vacuolation 1+ Dohle Bodies 2+ Platelet Estimate NORMAL Target Cells 1+ Sodium Level 137 mmol/L Potassium Level 3.9 mmol/L Chloride Level 105 mmol/L Carbon Dioxide Level 23 mmol/L Anion Gap 9.0 mmol/L Blood Urea Nitrogen 23 mg/dl Creatinine 1.10 mg/dl Est Creatinine Clear Calc Drug Dose 72.1 ml/min Estimated GFR () 79.5 Estimated GFR (Non- 68.6 BUN/Creatinine Ratio 20.6 Random Glucose 120 mg/dl Calcium Level 7.6 mg/dl Total Bilirubin 9.9 mg/dl Aspartate Amino Transf (AST/SGOT) 130 U/L Alanine Aminotransferase (ALT/SGPT) 164 U/L Alkaline Phosphatase 591 U/L Total Protein 4.9 gm/dl Albumin 1.5 gm/dl Globulin 3.4 gm/dl Albumin/Globulin Ratio 0.4 Test 03/18/17 09:52 03/18/17 11:38 Iron Level 30 mcg/dl Total Iron Binding Capacity 112 mcg/dl Transferrin 101 mg/dl Transferrin % Saturation 21 % Ferritin 4526.3 ng/ml Assessment & Plan Review of his peripheral smear reflects mild aniso and poikilocytosis. No fragmentation. Some target cells are seen. Perhaps another abdominal sonogram once again to rule out retroperitoneal bleeding would be warranted if the hemoglobin continues to drift down. Abdominal sonogram done yesterday was essentially negative. I did order an LDH but doubt hemolysis as a cause for his anemia. Metastatic pancreatic carcinoma status post chemotherapy. Some of the cytopenias at this juncture could be chemotherapy related. We will continue to follow with you.
--- NOTE | 2017-03-18 13:18 | Gastroenterology Progress Note ---
Progress Note Date of Service: Mar 18, 2017 Subjective Pt evaluation today including: conversation w/ patient, physical exam, chart review, lab review, review of studies, review of inpatient medication list CC f/u jaundice and abd pain HPI Pt with abd pain but not severe. No n/v. He is much more alert today. Review of Systems Respiratory: No shortness of breath Cardiac: No chest pain Medications Current Inpatient Medications Medications (Trade) Dose Ordered Sig/Pedro Pablo Route Start Time Stop Time Status Last Admin Dose Admin Magnesium Hydroxide (Milk Of Magnesia Susp) 30 ml Q12H PRN PO 03/14/17 14:15 04/13/17 14:14 Ondansetron HCl (Zofran Inj) 4 mg Q6H PRN IV 03/14/17 14:15 04/13/17 14:14 03/15/17 01:56 4 MG Albuterol (Ventolin Hfa Inhaler) 2 puffs Q4 PRN INH 03/14/17 14:45 04/13/17 14:44 Arformoterol Tartrate (Brovana 15MCG/ 2ML Neb Soln) 15 mcg BIDR INH 03/14/17 20:00 04/13/17 19:59 03/18/17 06:58 15 MCG Ascorbic Acid (Vitamin C Tab) 500 mg QAM PO 03/15/17 09:00 04/14/17 08:59 03/18/17 07:57 500 MG Budesonide (Pulmicort Respules 0.5MG/ 2ML Neb Soln) 0.5 mg BIDR INH 03/14/17 20:00 04/13/17 19:59 03/18/17 06:58 0.5 MG Cholecalciferol (Vitamin D Tab) 1,000 inter.unit QAM PO 03/15/17 09:00 04/14/17 08:59 03/18/17 07:57 1,000 INTER.UNIT Citalopram Hydrobromide (celeXA TAB) 20 mg QPM PO 03/14/17 21:00 04/13/17 20:59 03/17/17 20:21 20 MG Hydrocodone Bit/ Homatropine Methylb (Hycodan Syrup) 5 ml Q4H PRN PO 03/14/17 14:45 03/28/17 14:44 Lorazepam (Ativan Tab) 0.5 mg Q6H PO 03/14/17 16:00 04/13/17 15:59 Future Hold 03/17/17 11:00 0.5 MG Meloxicam (Mobic Tab) 7.5 mg DAILY PRN PO 03/14/17 14:45 04/13/17 14:44 Montelukast Sodium (Singulair Tab) 10 mg QAM PO 03/15/17 09:00 04/14/17 08:59 03/18/17 07:56 10 MG Multivitamins/ Minerals (Multivitamin W/ Minerals Tab) 1 tab QAM PO 03/15/17 09:00 04/14/17 08:59 03/18/17 07:56 1 TAB Oxycodone HCl (Roxicodone Immediate Rel Tab) 5 mg Q6H PRN PO 03/14/17 14:45 03/28/17 14:44 03/18/17 07:55 5 MG Simvastatin (Zocor Tab) 20 mg QAM PO 03/15/17 09:00 04/14/17 08:59 03/18/17 07:57 20 MG Cyanocobalamin (Vitamin B-12 Tab) 50 mcg QAM PO 03/15/17 09:00 04/14/17 08:59 03/18/17 07:57 50 MCG Heparin Sodium (Porcine) (Heparin 100 Unit/ml 5ml Flush) 5 ml PRN PRN IV 03/14/17 15:30 04/13/17 15:29 03/17/17 15:12 5 ML Enoxaparin Sodium (Lovenox Inj) 150 mg DAILY SQ 03/16/17 09:00 04/15/17 08:59 03/18/17 07:59 150 MG Pantoprazole Sodium (Protonix Tab) 40 mg AC@0700,1615 PO 03/16/17 16:15 04/15/17 16:14 03/18/17 07:57 40 MG Piperacillin Sod/ Tazobactam Sod (Consult) 1 ea UD PRN N/A 03/18/17 10:00 04/17/17 09:59 Piperacillin Sod/ Tazobactam Sod 3.375 gm/Dextrose 115 ml @ 28.75 mls/ hr Q8H IV 03/18/17 16:00 04/01/17 15:59 Objective Vital Signs Date Time Temp Pulse Resp B/P (MAP) Pulse Ox O2 Delivery O2 Flow Rate FiO2 03/18/17 07:29 36.6 61 18 136/81 (99) 98 Room Air 03/18/17 07:00 61 16 98 Room Air 03/18/17 00:00 98 BiPAP 2.0 03/17/17 23:38 36.5 87 18 109/73 (85) 94 BiPAP 03/17/17 19:09 73 16 98 Nasal Cannula 2.0 03/17/17 18:23 37.2 76 18 97/65 (76) 95 Room Air 03/17/17 15:28 37.8 112 18 108/70 (83) 95 Room Air Physical Exam General Appearance: WD/WN, no apparent distress Respiratory/Chest: lungs clear, no respiratory distress Cardiovascular: no murmur Abdomen: normal bowel sounds, soft, no organomegaly, no pulsatile mass, + pertinent finding (no guarding nor rebound) Neurologic/Psych: alert, normal mood/affect Laboratory Results Last 24 Hours Test 03/17/17 13:32 03/17/17 13:39 03/18/17 01:42 03/18/17 05:29 Ammonia 16.6 umol/L C-Reactive Protein 13.20 mg/dl 16.50 mg/dl Urine Color DK YELLOW Urine Appearance CLEAR Urine pH 6.0 Urine Specific [place] 1.009 Urine Protein NEG Urine Glucose (UA) NEG Urine Ketones NEG Urine Occult Blood 1+ Urine Nitrite NEG Urine Bilirubin 1+ Urine Urobilinogen POS Urine Leukocyte Esterase NEG Urine WBC (Auto) 0 /hpf Urine RBC (Auto) 0-4 /hpf Urine Hyaline Casts (Auto) 0 /lpf Urine Epithelial Cells (Auto) 0-5 /lpf Urine Bacteria (Auto) NEG White Blood Count 10.86 K/uL Red Blood Count 2.41 M/uL Hemoglobin 7.5 g/dL Hematocrit 22.1 % Mean Corpuscular Volume 91.7 fL Mean Corpuscular Hemoglobin 31.1 pg Mean Corpuscular Hemoglobin Concent 33.9 g/dl Platelet Count 113 K/uL Mean Platelet Volume 9.1 fL Neutrophils (%) (Auto) 85.1 % Lymphocytes (%) (Auto) 9.3 % Monocytes (%) (Auto) 5.3 % Eosinophils (%) (Auto) 0.1 % Basophils (%) (Auto) 0.1 % Neutrophils # (Auto) 9.24 K/uL Lymphocytes # (Auto) 1.01 K/uL Monocytes # (Auto) 0.58 K/uL Eosinophils # (Auto) 0.01 K/uL Basophils # (Auto) 0.01 K/uL RDW Standard Deviation 56.9 fL RDW Coefficient of Variation 17.4 % Immature Granulocyte % (Auto) 0.1 % Immature Granulocyte # (Auto) 0.01 K/uL Toxic Granulation 1+ Toxic Vacuolation 1+ Dohle Bodies 2+ Platelet Estimate NORMAL Target Cells 1+ Sodium Level 137 mmol/L Potassium Level 3.9 mmol/L Chloride Level 105 mmol/L Carbon Dioxide Level 23 mmol/L Anion Gap 9.0 mmol/L Blood Urea Nitrogen 23 mg/dl Creatinine 1.10 mg/dl Est Creatinine Clear Calc Drug Dose 72.1 ml/min Estimated GFR () 79.5 Estimated GFR (Non- 68.6 BUN/Creatinine Ratio 20.6 Random Glucose 120 mg/dl Calcium Level 7.6 mg/dl Total Bilirubin 9.9 mg/dl Aspartate Amino Transf (AST/SGOT) 130 U/L Alanine Aminotransferase (ALT/SGPT) 164 U/L Alkaline Phosphatase 591 U/L Total Protein 4.9 gm/dl Albumin 1.5 gm/dl Globulin 3.4 gm/dl Albumin/Globulin Ratio 0.4 Test 03/18/17 09:52 Iron Level 30 mcg/dl Total Iron Binding Capacity 112 mcg/dl Transferrin 101 mg/dl Transferrin % Saturation 21 % Ferritin 4526.3 ng/ml Lactate Dehydrogenase 248 U/L Assessment and Plan mental status change--from gram neg cha sepsis improved elevated LFTS--TB worse, others about the same. Stent not working and likel has cholangtitis now gram neg sepsis--agree with change to Zon--Discussed findings with Dr Benavides and he recommends transfer to [place] as the equipment for bilateral stents is not available now. Likely needs bilateral stenting for adequate drainage. If he decompensates then from cholangitis that can be life threatening. I discussed with hospitalist and he will arrange transfer to [place]. not in room and called two numbers in chart with neither answered. abd pain--about the same. duodenal ulceration---continue PPI anemia--could be secondary to duodenal ulceation with slow ooze--stable. hx of PE--although pt had sphincterotomy and has duodenal ulceation, at this point treatment for PE more important. Follow for any active GI bleeding. pancreas ca with mets to liver
--- NOTE | 2017-03-18 14:53 | Discharge Instructions ---
Discharge Instructions Date of Service Mar 18, 2017. Admission Reason for Admission: Hypotension Discharge Discharge Diagnosis / Problem: Cholangitis/ pancreatic adenocarcinoma/ bacteremia Discharge Goals Goal(s): Decrease discomfort Activity Recommendations Activity Limitations: as noted below Currently is bedridden due to infection/ sepsis/ cholangitis Instructions / Follow-Up Instructions / Follow-Up Patient is currently on Zosyn 3.375 gr IV q8h Last dose was 10 am. Next dose recommended at 18:00 Lovenox 150mg given at 9:00 03/18/17 Will recommend starting Heparin drip around 5 am on 03/19/17 Current Hospital Diet Patient's current hospital diet: Regular Diet Discharge Diet Recommended Diet: Regular Diet Procedures Procedures Performed: Endoscopic Retrograde Cholangiopancreatogram Pending Studies Studies pending at discharge: no Laboratory Results Last 24 Hours Test 03/18/17 01:42 03/18/17 05:29 03/18/17 09:52 Urine Color DK YELLOW Urine Appearance CLEAR Urine pH 6.0 Urine Specific [place] 1.009 Urine Protein NEG Urine Glucose (UA) NEG Urine Ketones NEG Urine Occult Blood 1+ Urine Nitrite NEG Urine Bilirubin 1+ Urine Urobilinogen POS Urine Leukocyte Esterase NEG Urine WBC (Auto) 0 /hpf Urine RBC (Auto) 0-4 /hpf Urine Hyaline Casts (Auto) 0 /lpf Urine Epithelial Cells (Auto) 0-5 /lpf Urine Bacteria (Auto) NEG White Blood Count 10.86 K/uL Red Blood Count 2.41 M/uL Hemoglobin 7.5 g/dL Hematocrit 22.1 % Mean Corpuscular Volume 91.7 fL Mean Corpuscular Hemoglobin 31.1 pg Mean Corpuscular Hemoglobin Concent 33.9 g/dl Platelet Count 113 K/uL Mean Platelet Volume 9.1 fL Neutrophils (%) (Auto) 85.1 % Lymphocytes (%) (Auto) 9.3 % Monocytes (%) (Auto) 5.3 % Eosinophils (%) (Auto) 0.1 % Basophils (%) (Auto) 0.1 % Neutrophils # (Auto) 9.24 K/uL Lymphocytes # (Auto) 1.01 K/uL Monocytes # (Auto) 0.58 K/uL Eosinophils # (Auto) 0.01 K/uL Basophils # (Auto) 0.01 K/uL RDW Standard Deviation 56.9 fL RDW Coefficient of Variation 17.4 % Immature Granulocyte % (Auto) 0.1 % Immature Granulocyte # (Auto) 0.01 K/uL Toxic Granulation 1+ Toxic Vacuolation 1+ Dohle Bodies 2+ Platelet Estimate NORMAL Target Cells 1+ Sodium Level 137 mmol/L Potassium Level 3.9 mmol/L Chloride Level 105 mmol/L Carbon Dioxide Level 23 mmol/L Anion Gap 9.0 mmol/L Blood Urea Nitrogen 23 mg/dl Creatinine 1.10 mg/dl Est Creatinine Clear Calc Drug Dose 72.1 ml/min Estimated GFR () 79.5 Estimated GFR (Non- 68.6 BUN/Creatinine Ratio 20.6 Random Glucose 120 mg/dl Calcium Level 7.6 mg/dl Total Bilirubin 9.9 mg/dl Aspartate Amino Transf (AST/SGOT) 130 U/L Alanine Aminotransferase (ALT/SGPT) 164 U/L Alkaline Phosphatase 591 U/L C-Reactive Protein 16.50 mg/dl Total Protein 4.9 gm/dl Albumin 1.5 gm/dl Globulin 3.4 gm/dl Albumin/Globulin Ratio 0.4 Iron Level 30 mcg/dl Total Iron Binding Capacity 112 mcg/dl Transferrin 101 mg/dl Transferrin % Saturation 21 % Ferritin 4526.3 ng/ml Lactate Dehydrogenase 248 U/L Medical Emergencies . Who to Call and When: Medical Emergencies: If at any time you feel your situation is an emergency, please call 911 immediately. . Non-Emergent Contact Non-Emergency issues call your: Primary Care Provider, Shot [employer]ighter Call Non-Emergent contact if: you have a fever, temperature is above 101, your pain is not controlled . . "Provider Documentation" section prepared by Choco Mitchell. . VTE Core Measure Inpt VTE Proph given/why not?: Nori De Los Santos, SCD's
[2017-03-18 15:05] VITALS: BP 124/81; PULSE 94; TEMP 37.5; O2SAT 92
[2017-03-18] MEDS ORDERED: PIPERACILL/TAZOBAC IV 3.375 GM in DEXTROSE 5% 100ML IV SCH (16:00)
[2017-03-18 16:09] VITALS: BP 124/81; PULSE 94; TEMP 37.5; O2SAT 92
--- NOTE | 2017-03-18 16:11 | Discharge Summary ---
Discharge Summary Date of Service Mar 18, 2017. (Fabby Campos .ROLANDO) Discharge Summary Admission Date: Mar 14, 2017 at 13:34 Discharge Date: Mar 18, 2017 Discharge Disposition: Acute care facility ([facility] [place]) Principal Diagnosis: Sepsis with encephalopathy secondary to suspected cholangitis Problems/Secondary Diagnoses: Metastatic pancreatic cancer Anemia of chronic disease Elevated LFTs Recent PE diagnosed 02/13/17 Immunizations: Have You Had Influenza Vaccine: Unknown History of Tetanus Vaccine?: Unknown History of Pneumococcal: Unknown History of Hepatitis B Vaccine: Unknown Procedures: ERCP: Impression: -A localized biliary stricture was found. The stricture was indeterminate. -A sphincterotomy was performed. -One temporary plastic biliary stent was placed into the common bile duct. -One stent was removed from the common bile duct. Consultations: Gastroenterology--Dr. Cisneros, Dr. Benavides, Dr. Cartwright Hematology/oncology--Dr. Brooks, Dr. Rivera (Fabby Campos PA-C) Medication Reconciliation Continued Medications: Albuterol (Ventolin Hfa) Aers 2 PUFFS INH Q4 PRN for Dyspepsia Arformoterol Tartrate (Brovana) 15 Mcg/2 Ml Neb 15 MCG INH BID, INHALER Ascorbic Acid (Vitamin C) 500 Mg Tab 500 MG PO QAM Budesonide (Budesonide) 0.5 Mg/2 Ml Nebu 1 VIAL NEB BID for 30 Days, #120 ML 11 Refills Cholecalciferol (Vitamin D3) 1,000 Unit Tab 1 TAB PO QAM for 90 Days, #90 TAB 3 Refills Citalopram Hydrobromide (Celexa) 20 Mg Tab 20 MG PO QPM, TAB Cyanocobalamin (Vitamin B-12) 50 Mcg Tab Fish Oil (Ronks-3) 1 Ea Cap 1 CAP PO QAM, CAP Hydrocodone W/ Homatropine (Hycodan 5/1.5MG 5 Ml) 1 Syp Syp 5 ML PO Q4H PRN for PRN, ML Lorazepam (Ativan) 0.5 Mg Tab 0.5 MG PO Q6H, TAB Meloxicam (Mobic) 7.5 Mg Tab 7.5-15 MG PO PRN, TAB Montelukast Sodium (Singulair) 10 Mg Tab 10 MG PO QAM, TAB Multiple Vitamins W/ Minerals (Centrum) 1 Tab Tab 1 TAB PO QAM Oxycodone Ir (Roxicodone Ir) 5 Mg Tab 5 MG PO Q6H PRN for Pain, TAB Pantoprazole (Protonix) 40 Mg Tab 40 MG PO QAM, #30 TAB Simvastatin (Simvastatin) 20 Mg Tab 20 MG PO QAM Discontinued Medications: Amlodipine (Norvasc) 2.5 Mg Tab 2.5 MG PO QAM, TAB Enoxaparin (Lovenox) 150 Mg/1 Ml Inj SQ DAILY Enoxaparin (Lovenox) 150 Mg/1 Ml Inj SQ DAILY Losartan Potassium (Cozaar) 50 Mg Tab 50 MG PO QAM, TAB Discharge Exam Per nursing, the patient is more alert today and is able to answer my questions appropriately. He complains of abdominal pain and constipation, generalized weakness and fatigue. He also notes a non-productive cough. The patient denies fevers, chills, sweats, chest pain, palpitations, claudication, wheezing , shortness of breath, nausea, vomiting, dysuria, hematuria, urinary retention , paralysis, motor weakness, numbness and tingling. Review of Systems: Constitutional: + weakness, + fatigue, No fever, No chills, No sweats Eyes: No worsening of vision, No redness, No diplopia ENT: No hearing loss, No sore throat, No trouble swallowing Respiratory: + cough, No sputum, No wheezing, No shortness of breath Cardiovascular: No chest pain, No claudication, No palpitations Abdomen: + pain, No nausea, No vomiting Musculoskeletal: No joint pain, No muscle pain, No calf pain Genitourinary - Male: No hematuria, No dysuria, No urinary retention Neurologic: No paralysis, No weakness, No numbness/tingling Integumentary: No rash, No itch, No new/changing skin lesions Physical Exam: General Appearance: no apparent distress, + obese, + pertinent finding ( lethargic) Eyes: PERRL, EOMI, + abnormal sclerae exam (icterus) ENT: normal ENT inspection, hearing grossly normal, pharynx normal, + pertinent finding (mucous membranes appear jaundiced) Neck: supple, no JVD, trachea midline Respiratory/Chest: chest non-tender, lungs clear, normal breath sounds Cardiovascular: regular rate, rhythm, no gallop, no murmur Abdomen / GI: normal bowel sounds, + tenderness (RUQ and epigastric area TTP ), + distended Extremities: normal inspection, no pedal edema, normal range of motion Neurologic/Psychiatric: alert, normal mood/affect, oriented x 3 Skin: warm/dry, no rash, + jaundice (Fabby Campos ., PABhartiC) Hospital Course 66 y/o male presenting for direct admission from Dr. Benavides due to hypotension. Sepsis secondary to cholangitis w/encephalopathy--ongoing - Pt more alert today and answering questions although still lethargic overall - Suspected cholangitis. Worsening leukocytosis. WBC 10.86, up from 7.3 - CRP trending up - D/C Flagyl and cefoxitin - Start Zosyn IV - Ultrasound negative for ascites - likely ascending cholangitis - Blood cultures positive for GNR x 2 - Urine culture pending - Ammonia 16.6 - Hold ativan given lethargy - Tylenol 325mg prn q8h for fever Hypotension/lightheadedness--improving - Probably multifactorial between anemia, cancer, and chemo - BP stable Metastatic pancreatic ca - Ongoing chemo as outpatient - Heme/onc on board Elevated LFTs - Total bilirubin continuing to increase, up to 9.9 - AST, ALT, alk phos decreasing but still elevated Anemia, likely of chronic disease--ongoing - Transfused 2 units upon admission - Hemoglobin 7.5, hold off on further transfusions for now - Iron studies all low, ferritin elevated. Recent PE dx 02/13/17 -Received therapeutic Lovenox 03/18 -Recommend starting heparin drip tomorrow morning Hypertension - Hold Norvasc and losartan due to recent hypotension [place] - Home CPAP Hyperlipidemia - continue Zocor 20 mg PO qd Recent heart cath - 12/24 for SOB, neg Code Status -Level I, FULL RESUSCITATION STATUS Dispo -Due to worsening status today and suspected cholangitis despite recent stenting , GI recommends transfer to [facility] [place] for another ERCP and bilateral stenting Total Time Spent: Greater than 30 minutes This includes examination of the patient, discharge planning, medication reconciliation, and communication with other providers. (Fabby Campos ., PA-C) I agree with above note. My exam did not differ from the exam performed by the APC. I discussed discharge plan with patient and APC. All questions were answered. (Choco Mitchell M.D.) Discharge Instructions Please refer to the electronic Patient Visit Report (Discharge Instructions) for additional information. (Fabby Campos ., PA-C) Additional Copies To Cheko Wilder M.D.
--- NOTE | 2017-03-19 17:59 | EDITING REQUIRED CODING QUERY ---
PRESENT ON ADMISSION QUERY To promote full compliance with coding requirements relating to pateint care, physician participation is requested in all cases of packaging associate uncertainty. Please assist us with the question(s) below: Please place an X within the parenthesis (x). The following diagnosis(es) listed in this patient's medical record require physician assistance to determine if they were present on admission (POA) or not. Please advise for each diagnosis whether it was present on admission, not present on admission, or if it was clinically undetermined. 1. Gram Negative Sepsis (Not documented until 03/17/17 by Marycruz Dumont) ( ) Present On Admission (x ) Not Present On Admission ( ) Clinically Undetermined 2. Septic Encephalopathy (Not documented until 03/17/17 by Marycruz Dumont) ( ) Present On Admission ( x) Not Present On Admission ( ) Clinically Undetermined Thank you Neda Staton *Definition of the present on admission (POA)-Present on admission is defined as present at the time the order for inpatient admission occurs. Conditions that develop during an outpatient encounter prior to a written order for inpatient admission (including emergency department, observation, or outpatient surgery) are considered present on admission.
== END 2017-03-18 17:00 | disposition short-term general hospital (02) | DRG 444 ==
LOC: C.2T 13:34 → ENRESERV 03-16 17:51 → C.4E 03-16 18:35
PROVIDERS: ADMIT Family Medicine; ATTEND Family Medicine
PROC: 0F798DZ Dilation of Common Bile Duct with Intraluminal Device, Via Natural or Artificial Opening Endoscopic (ICD-10-PCS; principal; 2017-03-15 12:15)
DX: K83.1 Obstruction of bile duct (principal); A41.50 Gram-negative sepsis, unspecified; G93.41 Metabolic encephalopathy; C25.9 Malignant neoplasm of pancreas, unspecified; C78.7 Secondary malignant neoplasm of liver and intrahepatic bile duct; K83.0 Cholangitis; R17 Unspecified jaundice; J44.9 Chronic obstructive pulmonary disease, unspecified; I10 Essential (primary) hypertension; G47.33 Obstructive sleep apnea (adult) (pediatric); E78.5 Hyperlipidemia, unspecified; K21.9 Gastro-esophageal reflux disease without esophagitis; Z79.01 Long term (current) use of anticoagulants; Z80.8 Family history of malignant neoplasm of other organs or systems; Z82.49 Family history of ischemic heart disease and other diseases of the circulatory system; Z80.6 Family history of leukemia; Z87.891 Personal history of nicotine dependence; D64.9 Anemia, unspecified; R94.5 Abnormal results of liver function studies; K26.9 Duodenal ulcer, unspecified as acute or chronic, without hemorrhage or perforation; R10.11 Right upper quadrant pain; Z86.711 Personal history of pulmonary embolism